=== PATIENT | female | born 1960 | race Caucasian/White ===

== ENCOUNTER 2018-04-22 11:25 | Emergency (ER) | payer OTHER, SELFPAY ==
[2018-04-22 11:30] VITALS: BP 122/78; PULSE 93; RESP 14; TEMP 37.2; O2SAT 96
--- NOTE | 2018-04-22 11:43 | ED.GENADUL_ITS ---
Disposition Clinical Impression: Osteoarthritis Disposition: HOME Condition: Stable Instructions: Osteoarthritis (ED) Medical Decision Making - Medical Decision Making Pt here with symptoms that seem typical of osteoarthritis given pain worse at the end of the day and worse with being on her feet all day or increased walking. Has no systemic symptoms or morning pain to suggest osteoarthritis or bone tumor, and no joint effusion on exam, no redness or warmth to suggest septic joint. I doubt fracture given lack of trauma, can bear weight and has full rom, I did offer an xray to eval for this but patient chose watchful waiting and will f/u with pcp, return precautions given - Differential Diagnosis osteoarthritis, overuse injury, sprain, strain History of Present Illness - General Chief complaint: Orthopedic Stated complaint: RT FOOT PAIN Time Seen by Provider: 04/22/18 11:32 Source: patient Mode of arrival: ambulatory Limitations: no limitations - History of Present Illness Initial comments: 58 yo female with hx of htn who comes in with cc of over a month of right foot pain. She states she is on her feet for work a lot and went on a cruise where she walked a lot. Denies any trauma, fevers, chills, redness, unexplained weight loss. She has pain that is worse at the end of the day and has swelling at the end of the day as well of the ankle. Her pain is localizes to the right medial malleolus. She has full rom with 2+ dp/pt pulses, no deformity or swelling and no calf pain and full rom of the ankle with 5/5 strength of dorsi and plantar flexion with intact sensation MD Complaint: right ankle pain Onset/Timin -: month(s) Improves with: none Worsens with: none - Related Data Amlodipine Besylate [Norvasc] 5 mg PO DAILY 11/19/12 Ranitidine [Zantac] 150 mg PO BID 11/19/12 Fluticasone Propionate [Flonase Allergy Relief] 9.9 ml NS 2 SPRAYS QD 02/04/15 Meclizine HCl 25 mg PO 1-2 TABS Q 6 HR tab-cap 02/04/15 Estradiol [Vagifem] 10 mcg VG 2x/wk #24 each 02/28/17 Sertraline HCl 25 mg PO DAILY tab-cap 02/28/17 Allergies Allergy/AdvReac Type Severity Reaction Status Date / Time clindamycin Allergy Intermediate Skin Rash Unverified 04/22/18 11:32 Estrogens Allergy Intermediate Skin Rash Unverified 04/22/18 11:32 Penicillins Allergy Intermediate Skin Rash Unverified 04/22/18 11:32 gabapentin Allergy Psychosis Unverified 04/22/18 11:32 acetaminophen [From Vicodin] AdvReac Intermediate Unverified 04/22/18 11:32 hydrocodone [From Vicodin] AdvReac Intermediate Unverified 04/22/18 11:32 Review of Systems Constitutional: denies: fever Respiratory: denies: shortness of breath Cardiovascular: denies: chest pain Musculoskeletal: denies: back pain Skin: denies: rash Neurological: denies: headache Comment: All other systems reviewed and negative Past Medical History - Past Medical History Medical history: asthma, GERD Chronic sinusitis, migraine headaches Surgical history: other (Sinus surgery, uterine ablation,) [employer] WORK[employer] history: other (Ovarian cyst) - Social History Alcohol use: none Drug use: none General Exam - General Limitations: no limitations General appearance: alert, in no apparent distress - Head Head exam: Present: atraumatic - Eye Eye exam: Present: normal apperance - ENT ENT exam: Present: mucous membranes moist - Neck Neck exam: Present: normal inspection - Respiratory Respiratory exam: Absent: respiratory distress - Cardiovascular Cardiovascular Exam: Present: regular rate - Extremities Exam Extremities exam: Present: normal inspection, full ROM, normal capillary refill - Back Exam Back exam: Present: normal inspection - Neurological Exam Neurological exam: Present: alert, oriented X3. Absent: motor sensory deficit - Psychiatric Psychiatric exam: Present: normal affect - Skin Skin exam: Present: warm Course Vital Signs - 24 hr 04/22/18 11:30 Temperature 99.0 F Pulse 93 H Respiratory 14 Rate Blood Pressure 122/78 Pulse Oximetry 96
== END 2018-04-22 11:53 | disposition home or self-care (01) ==
PROVIDERS: Emergency Provider Emergency Medicine; PCP Internal Medicine
DX: M19.071 Primary osteoarthritis, right ankle and foot (principal); I10 Essential (primary) hypertension
CPT/HCPCS: 99283; 99282

== ENCOUNTER 2018-06-08 00:27 | Outpatient (CLI) | payer OTHER, SELFPAY ==
--- NOTE | 2018-06-08 15:44 | DI.MAMMO_ITS ---
SYMPTOM/DIAGNOSIS: SCREENING, Z12.31 MAMMOGRAMS: Mammograms were interpreted according to the usual protocol including computer analysis with CAD system, tomosynthesis and C view imaging. Comparison with prior examinations. Breast density C. No masses or microcalcifications are seen. There is nothing to suggest malignancy. IMPRESSION: Negative mammogram. Routine screening is recommended. Category I. MQSA ASSESSMENT OF FINDINGS: Negative. Category 1. Patient will receive a letter notifying them of these results. Bi-RADS category C. The breasts are heterogeneously dense, which may obscure small masses.
== END 2018-06-08 00:47 ==
PROVIDERS: PCP Internal Medicine; Visit Provider Internal Medicine
DX: Z12.31 Encounter for screening mammogram for malignant neoplasm of breast (principal)
CPT/HCPCS: 77063; 77067

== ENCOUNTER 2018-06-14 08:02 | Emergency (ER) | payer OTHER, SELFPAY ==
[2018-06-14 08:12] VITALS: BP 142/86; PULSE 87; RESP 16; TEMP 36.7; O2SAT 93
--- NOTE | 2018-06-14 08:16 | ED.GENADUL_ITS ---
Discharge Plan Disposition Patient Disposition: HOME Condition: Stable Discharge Details Chief Complaint: RespSymp Clinical Impression: Upper respiratory infection, RAD (reactive airway disease) Primary Care Provider: Moustapha Givens ED Provider: Tamar Lucero Home Meds and New Rx's Prescriptions: Continue fluticasone [Flonase Allergy Relief] 9.9 ML spray,suspension 9.9 ml NS 2 SPRAYS QD RF: 0 meclizine 25 MG tablet,chewable 25 mg PO 1-2 TABS Q 6 HR RF: 0 amlodipine [Norvasc] 5 MG tablet 5 mg PO DAILY RF: 0 ranitidine HCl [Zantac] 150 MG tablet 150 mg PO BID RF: 0 Discharge Instructions Instructions: Upper Respiratory Infection (ED), Reactive Airways Disease (ED) Additional Instructions: Please return immediately to the emergency department if you develop any new or worsening symptoms or if you become otherwise concerned. It is extremely important that you make an appointment to be seen within the next 1-2 weeks by your primary care doctor. Referrals: Moustapha Givens MD [Primary Care Provider] - Discharge Data Discharge Date/Time-TO BE ENTERED AT DEPARTURE: 06/14/18 11:23 Medical Decision Making Estela Singh is a 58 y/o woman who presented to the emergency department with a few days of her typical recurrent sinusitis symptoms and cough, SOB today. On exam Pt is well and non-toxic appearing. Wheeze throughout b/l, mild. Concern for RAD component, possible PNA. Exam/hx not c/w bacterial sinusitis, meningitis , sepsis, PE, ACS. Plan for duoneb, CXR. Pt feels SOB completely improved after one duoneb. CXR okay. Normal pulmonary exam on ausculation upon reassessment. Plan for d/c to home with inhaler. No indications for steroids at this time. Lengthy discussion with Pt re: RTED precautions and importance of outpt f/u with ENT, PCP. She is amenable to the plan. Medical Records Medical records reviewed: Yes I reviewed the patient's medical records. Imaging Data Radiologic Study: Attestation: I personally reviewed and interpreted this imaging study as follows: Radiologist's impression: CHEST X-RAY, PA AND LATERAL: Comparison is 12/23/16. The heart size and pulmonary vasculature are within normal limits. The lungs appear clear and stable. No new infiltrates, effusions or pneumothoraces are identified. The bones appear intact. IMPRESSION: No acute change. No acute pulmonary process. HPI General Mode of arrival: ambulatory . Date/Time Provider Initiated Documentation: 06/14/18 08:15 . Limitations to Documentation: no limitations . Information obtained by: patient and family . HPI Narrative: Estela Singh is a 58-year-old woman with history of hypertension and chronic recurrent sinusitis presenting to the emergency department with cough and mild shortness of breath. Patient reports that over the past 4 days she has developed her typical recurrent sinusitis symptoms of pain in the frontal and maxillary sinuses worse on the right than the left and nasal congestion. Has also had cough since yesterday. Has been taking Afrin, Excedrin , and Flonase without change in her symptoms. She sees Dr. Matamoros for chronic recurrent sinusitis. Patient reports that this morning she woke up and had sensation of mild shortness of breath. Patient reports that she has had asthma in the past, but has not had any asthma symptoms for many years. Patient reports that this feels similar to asthma she has had in the past. She did not use an inhaler at home (is not prescribed on). She denies pain, fever, vomiting , diarrhea, rash and feels overall well. No recent travel. Eating and drinking as usual. Related Data Home Medications Medication Instructions Recorded Confirmed amlodipine [Norvasc] 5 mg PO DAILY 11/19/12 06/14/18 ranitidine HCl [Zantac] 150 mg PO BID 11/19/12 06/14/18 fluticasone [Flonase Allergy 9.9 ml NS 2 SPRAYS QD 02/04/15 06/14/18 Relief] meclizine 25 mg PO 1-2 TABS Q 6 HR tab-cap 02/04/15 06/14/18 Allergies Allergy/AdvReac Type Severity Reaction Status Date / Time clindamycin Allergy Intermediate Skin Rash Unverified 06/14/18 08:15 Estrogens Allergy Intermediate Skin Rash Unverified 06/14/18 08:15 Penicillins Allergy Intermediate Skin Rash Unverified 06/14/18 08:15 gabapentin Allergy Psychosis Unverified 06/14/18 08:15 acetaminophen [From Vicodin] AdvReac Intermediate Unverified 06/14/18 08:15 hydrocodone [From Vicodin] AdvReac Intermediate Unverified 06/14/18 08:15 General Stated Complaint: RespSymp DREW: 4 Review of Systems Review of Systems Constitutional: denies fevers Eyes: denies eye pain ENT: denies dental pain, sore throat, reports b/l sinus pain, nasal congestion Cardiovascular: denies chest pain, edema Respiratory: reports SOB, cough GI: denies abdominal pain, vomiting, diarrhea : denies flank pain MSK: denies back pain, neck pain, arthralgias, myalgias Skin: denies rash Neuro: denies headaches, lightheadedness, weakness PFSH Family History Other Heart disease Hyperlipidemia Personal history of malignant neoplasm Medical History Anxiety Depression GERD Migraine Seasonal allergic rhinitis Vitiligo Social History Smoking/Tobacco Use Status: Never Surgical History Colon/endoscopy Endometrial Ablation Ligation of fallopian tube R trochanteric bursectomy Sinus cyst removed Exam Narrative Exam Narrative: Constitutional: well and [id number], pleasant, conversing normally HENT: head atraumatic, normocephalic normal inspection, mucous membranes moist, normal oropharynx. TTP of b/l frontal sinuses Eyes: conjunctiva normal, sclera normal, pupils 3mm b/l Neck: no stridor, normal ROM, trachea midline Chest: normal inspection Resp: normal work of breathing, mild wheeze throughout b/l lung cope. O2 sat 98% on RA on monitor. Cardio: normal rate, normal rhythm, no murmur appreciated GI: abdomen soft, non-tender, non-distended Back: normal inspection, no rash Skin: warm, dry, normal color, no rash Neuro: alert, not altered, grossly non-focal, normal tone Ext: no LE edema, no posterior calf TTP. Psych: normal mood, normal affect, normal behavior Course Vital Signs Temperature 36.7 C 06/14/18 08:12 Pulse 87 06/14/18 08:12 Respiratory Rate 16 06/14/18 08:12 Blood Pressure 142/86 H 06/14/18 08:12 Pulse Oximetry 93 L 06/14/18 08:12 Temperature 36.7 C 06/14/18 08:12 Temperature Source Skin 06/14/18 08:12 Pulse 87 06/14/18 08:12 Respiratory Rate 16 06/14/18 08:12 Respiratory Effort Non-Labored 06/14/18 08:12 Blood Pressure 142/86 H 06/14/18 08:12 Pulse Oximetry 93 L 06/14/18 08:12 Oxygen Delivery Method Room Air 06/14/18 08:12 Oxygen Flow Rate 0 06/14/18 08:12 Pain Level 0 06/14/18 08:12
--- NOTE | 2018-06-14 09:23 | DI.RAD_ITS ---
SYMPTOMS/DIAGNOSIS: COUGH CHEST X-RAY, PA AND LATERAL: Comparison is 12/23/16. The heart size and pulmonary vasculature are within normal limits. The lungs appear clear and stable. No new infiltrates, effusions or pneumothoraces are identified. The bones appear intact. IMPRESSION: No acute change. No acute pulmonary process.
[2018-06-14 09:25] VITALS: RESP 1
[2018-06-14] MEDS: Albuterol/Ipratropium 3 ML UPD VIAL UPD (09:25)
[2018-06-14] MEDS: Albuterol HFA 8 GM 60 PUFF INH IH (11:24)
== END 2018-06-14 11:23 | disposition home or self-care (01) ==
PROVIDERS: Emergency Provider Student in an Organized Health Care Education/Training Program; PCP Internal Medicine
DX: J06.9 Acute upper respiratory infection, unspecified (principal); J45.909 Unspecified asthma, uncomplicated
CPT/HCPCS: 94640; 99283; 71046; J7620

== ENCOUNTER 2018-07-05 09:47 | Outpatient (REF) | payer OTHER, SELFPAY ==
[2018-07-07 11:07] LABS: Campylobacter PCR SEE COMMENTS; Salmonella PCR SEE COMMENTS; Shiga Toxin PCR SEE COMMENTS; Shigella/Enteroinvasive Ecoli SEE COMMENTS
== END 2018-07-05 10:07 ==
LOC: NCHCN 09:47
PROVIDERS: PCP Nurse Practitioner; Visit Provider Nurse Practitioner
DX: K92.1 Melena (principal); R19.7 Diarrhea, unspecified
CPT/HCPCS: 87505

== ENCOUNTER 2018-07-05 15:14 | Outpatient (REF) | payer OTHER, SELFPAY ==
[2018-07-05 22:09] LABS: Absolute Basophil Count 0.03 k/cumm (0.0-0.2); Absolute Eosinophil Count 0.14 k/cumm (0.0-0.7); Absolute Lymphocyte Count 1.13 k/cumm (1.2-3.4); Absolute Monocyte Count 0.59 k/cumm (0.11-0.7); Absolute Neutrophil Count 3.72 k/cumm (1.2-6.7); Basophils % 0.5; Eosinophils % 2.5; HCT 38.5 % (36.0-46.0); HGB 12.5 g/dL (12.0-15.5); Lymphocytes % 20.1; Mean Corp. HGB Concentration 32.5 g/dL (32.0-36.0); Mean Corpuscular Hemoglobin 29.3 pg (27.0-33.0); Mean Corpuscular Volume 90.4 fL (80-95); Monocytes % 10.5; Neutrophils % 66.4; Platelet Count 308 x1000/uL (130-400); RBC 4.26 m/cumm (4.00-5.20); RBC Distribution Width 13.3 % (11.7-14.6); White Blood Cell Count 5.61 k/cumm (4.4-10.8)
[2018-07-05 22:12] LABS: ALT 28 U/L (12-78); AST 17 U/L (15-37); Alkaline Phosphatase 73 U/L (46-116); Anion Gap 7.3 mmol/L (3-11); BUN 18 mg/dL (7-18); Bilirubin, Total 0.4 mg/dL (0.2-1.0); CO2 29.7 mmol/L (21.0-32.0); CREATININE 0.71 mg/dL (0.55-1.02); Calcium 9.7 mg/dL (8.5-10.1); Chloride 103 mmol/L (98-107); Glucose 84 mg/dL (70-100); Potassium 3.9 mmol/L (3.5-5.1); Sodium 140 mmol/L (136-145); Total Protein 7.3 g/dL (6.4-8.2)
== END 2018-07-05 15:34 ==
LOC: NCHCN 15:14
PROVIDERS: PCP Nurse Practitioner; Visit Provider Nurse Practitioner
DX: R19.7 Diarrhea, unspecified (principal)
CPT/HCPCS: 80053; 85025

== ENCOUNTER 2018-07-06 09:53 | Outpatient (REF) | payer OTHER, SELFPAY | END 2018-07-06 10:13 | LOC: NCHCN 09:53 | PROVIDERS: PCP Nurse Practitioner; Visit Provider Nurse Practitioner | DX: R19.7 Diarrhea, unspecified (principal) | CPT/HCPCS: 87329; 87177; 87324 ==

== ENCOUNTER 2018-07-11 01:01 | Outpatient (CLI) | payer OTHER, SELFPAY ==
[2018-07-11] MEDS: Omnipaque 350 MG/ML 100 ML BTL IJ (08:41)
--- NOTE | 2018-07-11 08:47 | DI.CT_ITS ---
SYMPTOM/DIAGNOSIS: DIARRHEA, R19.7, ABD PAIN, BLOOD IN STOOL, H/O DIVERTICULOSIS ABDOMEN AND PELVIC CT: CT scan of the abdomen and pelvis was performed following the uneventful administration of intravenous contrast material. The visualized lung bases are clear. The liver is normal in size. No suspicious hepatic masses are seen. The portal and superior mesenteric veins are patent. The gallbladder is negative. No biliary ductal dilatation is seen. The pancreas and peripancreatic soft tissues are unremarkable as are the spleen and adrenal glands. The kidneys show normal and symmetric enhancement. No evidence of a solid renal mass or obstruction is present. There is a 6 mm. fat density, well circumscribed lesion in the superior pole of the right kidney, most consistent with an angiomyolipoma. The urinary bladder is intact. The reproductive organs are grossly unremarkable. The abdominal aorta is of normal caliber. No aneurysmal dilatation is seen. No significant abdominal or pelvic adenopathy, ascites or pneumoperitoneum is present. There is diverticulosis of the colon but no evidence of acute diverticulitis. No evidence of bowel obstruction or inflammation is seen. No findings to suggest an acute appendicitis are present. A normal appendix is seen in the right lower quadrant. The colon does appear to be fluid filled which can be seen with diarrheal illness. Age appropriate degenerative changes are seen in the spine. IMPRESSION: Fluid filled colon which can be seen with diarrheal illness. No evidence of bowel obstruction or inflammation.
== END 2018-07-11 01:21 ==
PROVIDERS: PCP Nurse Practitioner; Visit Provider Nurse Practitioner
DX: R19.7 Diarrhea, unspecified (principal); R10.9 Unspecified abdominal pain; K92.1 Melena; K57.30 Diverticulosis of large intestine without perforation or abscess without bleeding
CPT/HCPCS: 74177; J3490

== ENCOUNTER 2019-02-15 10:21 | Outpatient (REF) | payer OTHER, SELFPAY ==
[2019-02-15 13:05] LABS: HCT 37.3 % (36.0-46.0); HGB 12.1 g/dL (12.0-15.5); Mean Corp. HGB Concentration 32.4 g/dL (32.0-36.0); Mean Corpuscular Hemoglobin 29.4 pg (27.0-33.0); Mean Corpuscular Volume 90.8 fL (80-95); Mean Platelet Volume 11.1 fL (8.0-11.0); Platelet Count 284 x1000/uL (130-400); RBC 4.11 m/cumm (4.00-5.20); RBC Distribution Width 13.8 % (11.7-14.6); White Blood Cell Count 4.74 k/cumm (4.4-10.8)
== END 2019-02-15 10:41 ==
LOC: NCHCN 10:21
PROVIDERS: PCP Nurse Practitioner; Visit Provider Internal Medicine
DX: K92.2 Gastrointestinal hemorrhage, unspecified (principal)
CPT/HCPCS: 85027

== ENCOUNTER 2019-05-03 17:46 | Outpatient (REF) | payer OTHER, SELFPAY ==
[2019-05-03 21:34] LABS: Calculated LDL 150 mg/dL; Cholesterol 229 mg/dL (50-200); HDL Cholesterol 60 mg/dL (40-60); Triglyceride 95 mg/dL (30-150)
== END 2019-05-03 18:06 ==
LOC: NCHCN 17:46
PROVIDERS: PCP Nurse Practitioner; Visit Provider Internal Medicine
DX: Z00.00 Encounter for general adult medical examination without abnormal findings (principal); Z13.220 Encounter for screening for lipoid disorders
CPT/HCPCS: 80061

== ENCOUNTER 2019-07-28 09:16 | Emergency (ER) | payer OTHER, SELFPAY ==
[2019-07-28 09:24] VITALS: BP 135/75; PULSE 99; RESP 18; TEMP 36.6; O2SAT 100
--- NOTE | 2019-07-28 09:54 | W.ED.GENAD ---
Discharge Plan Disposition Patient Disposition: HOME Condition: Stable Discharge Details Chief Complaint: Epistaxis Clinical Impression: Epistaxis Primary Care Provider: Moustapha Givens ED Provider: Shanae Austin Home Meds and New Rx's Prescriptions: Continued fluticasone propionate [Flonase Allergy Relief] 9.9 ML spray,suspension 9.9 ml NS 2 SPRAYS QD RF: 0 amlodipine [Norvasc] 5 MG tablet 5 mg PO DAILY RF: 0 Discharge Instructions Instructions: Nosebleed (ED) Additional Instructions: If bleeding returns, be sure to clamp in place for 20 to 30 minutes. If bleeding persists, you can use 2 sprays of Afrin in the nostril that is bleeding. If you continue to have bleeding that does not resolve with pressure or Afrin or ice, return to the emergency department or follow-up with your primary care doctor or Dr. Matamoros. Do not use the Afrin more than 3 days. Also apply Vaseline inside the nares to help with dry heat and your CPAP at night which can likely be the cause of your nosebleeds. If you have persistent bleeding, for lubrication you can also apply Neosporin. Return to the emergency department anytime if you have any significant worsening or new concerning symptoms. Discharge Data Discharge Date/Time-TO BE ENTERED AT DEPARTURE: 07/28/19 10:03 Discharge Physician: Shanae Austin Medical Decision Making 59-year-old female with a history of recently started nasal cannula CPAP 1 month ago presents with 2 nosebleeds from left nares since last night. Vitals within normal limits. Patient appears nontoxic and comfortable. Bleeding controlled prior to arrival. No bleeding noted on exam. There is a 1 x 2 mm crust within left nares on septum likely consistent with recently ceased bleeding vessel. No active bleeding noted within bilateral nares. No blood noted within oropharynx. Discussed with patient that as she recently started nasal cannula CPAP, her nosebleeds are likely due to dry air even with water canister. She is advised to apply Vaseline inside to help with moisture, irrigate with nasal saline spray, and to apply topical Neosporin if needed. She was given a nasal clamp. She is advised that if bleeding returns to apply clamp and to use Afrin as needed. She is advised if bleeding is not controlled at home or she has any other worsening or new concerning symptoms, to return to emergency department. She is advised to follow-up with Dr. Matamoros for reevaluation as needed. HPI General Mode of arrival: ambulatory. Date/Time Provider Initiated Documentation: 07/28/19 09:26. Limitations to Documentation: no limitations. Information obtained by: patient. HPI Narrative: Patient is a 59-year-old female who presents the ED with a complaint of nosebleed from left nares that lasted 20 minutes today. Patient states that last night she had a nosebleed from the same side which lasted approximate 25 minutes. She was able to stop both nosebleeds with pressure. She denies headaches, blurry vision, fever, chest pain, shortness of breath. She states she started nasal cannula CPAP 1 month ago but she states she uses this with the water canister. She also states she has history of chronic rhinitis for which she uses Flonase. Related Data Home Medications Medication Instructions Recorded Confirmed amlodipine [Norvasc] 5 mg PO DAILY 11/19/12 07/28/19 fluticasone propionate [Flonase 9.9 ml NS 2 SPRAYS QD 02/04/15 07/28/19 Allergy Relief] Allergies Allergy/AdvReac Type Severity Reaction Status Date / Time clindamycin Allergy Intermediate Skin Rash Unverified 07/28/19 09:30 Estrogens Allergy Intermediate Skin Rash Unverified 07/28/19 09:30 Penicillins Allergy Intermediate Skin Rash Unverified 07/28/19 09:30 gabapentin Allergy Psychosis Unverified 07/28/19 09:30 acetaminophen [From Vicodin] AdvReac Intermediate Unverified 07/28/19 09:30 hydrocodone [From Vicodin] AdvReac Intermediate Unverified 07/28/19 09:30 General Stated Complaint: Epistaxis DREW: 3 Review of Systems All systems reviewed & are unremarkable except as noted in HPI and below Constitutional Constitutional: Reports as per HPI, Denies chills and Denies fever(s) Eyes Eyes: Denies blurry vision ENT Ears, Nose, Mouth, and Throat: Denies dizziness, Reports epistaxis, Denies sore throat and Denies throat swelling Cardiovascular Cardiovascular: Denies chest pain and Denies dyspnea Respiratory Respiratory: Denies cough and Denies dyspnea Gastrointestinal Gastrointestinal: Denies abdominal pain, Denies diarrhea and Denies vomiting Genitourinary Genitourinary: Denies hematuria and Denies dysuria Musculoskeletal Musculoskeletal: Denies back pain and Denies numbness Integumentary/Breasts Skin/Breast: Denies lesions and Denies rash Neurologic Neurologic: Denies dizziness, Denies focal weakness and Denies numbness Allergic/Immunologic Allergic/Immunologic: Denies throat swelling [facility] Medical History Anxiety Depression GERD History of excessive cerumen (Acute) Migraine Seasonal allergic rhinitis Vitiligo Surgical History Colon/endoscopy 07/2013 repeated negative endoscopy Diverticulosis colon done at [facility] Endometrial Ablation 2009 Ligation of fallopian tube 1984 R trochanteric bursectomy with IT band tenotomy 07/2012 Sinus cyst removed 2006 Family History Other Heart disease Hyperlipidemia Personal history of malignant neoplasm Social History Smoking/Tobacco Use Status: Never Alcohol Intake: current Alcohol Intake frequency: holidays/special occasions only Drug use: Never Do you feel safe at home: Yes Do you feel safe in your relationship?: Yes Exam Const General: cooperative, healthy appearing and no acute distress HENMT Head: normal to inspection Ears: hearing grossly normal bilaterally, external ears normal and TM's normal bilaterally General nose exam: external nose normal, no nasal polyps and no nasal discharge Face and sinus: normal facial exam Mouth: oral mucosae normal Throat: posterior oropharynx normal Other: 1 x 2 mm pinpoint crust noted anteriorly within left nares overlying septum. Bleeding controlled. No other evidence of active bleeding or oozing. Eyes General: appearance normal, both eyes and all related structures EOM: EOM intact bilaterally Neck Neck: normal visual inspection and No submandibular swelling Lymphatic: no lymphadenopathy noted Chest Chest: normal inspection of the chest and no tenderness Resp Effort & Inspection: normal respiratory effort and able to speak in complete sentences Auscultation: clear to auscultation bilaterally Cardio Rate: regular rate Rhythm: regular rhythm GI Inspection: normal to inspection Skin General skin exam: no rashes or lesions noted Neuro General: alert, awake and oriented x3 Cognition: normal cognition Speech: speech normal Motor: muscle tone normal throughout Sensory Exam: no sensory deficits noted Extrem General: full ROM Psych Appearance: grossly normal Mental Status: mental status grossly normal Speech and Movement: speech and movement normal Affect: normal affect Course Vital Signs Vital signs: Vital Signs Temperature 97.9 F 07/28/19 09:24 Pulse 99 H 07/28/19 09:24 Respiratory Rate 18 07/28/19 09:24 Blood Pressure 135/75 07/28/19 09:24 Pulse Oximetry 100 07/28/19 09:24 Temperature 97.9 F 07/28/19 09:24 Temperature Source Skin 07/28/19 09:24 Pulse 99 H 07/28/19 09:24 Respiratory Rate 18 07/28/19 09:24 Respiratory Effort Non-Labored 07/28/19 09:29 Blood Pressure 135/75 07/28/19 09:24 Blood Pressure Position Sitting 07/28/19 09:24 Pulse Oximetry 100 07/28/19 09:24 Oxygen Delivery Method Room Air 07/28/19 09:24 Oxygen Flow Rate 0 07/28/19 09:24 Pain Level 3 07/28/19 09:24
== END 2019-07-28 10:03 | disposition home or self-care (01) ==
PROVIDERS: Emergency Provider Physician Assistant; PCP Internal Medicine
DX: R04.0 Epistaxis (principal)
CPT/HCPCS: 99282

== ENCOUNTER 2019-10-02 11:29 | Outpatient (CLI) | payer OTHER, SELFPAY ==
--- NOTE | 2019-10-02 10:48 | DI.RAD_ITS ---
EXAM: XR SHOULDER LT COMPLETE 2+V INDICATION: L shoulder pain. COMPARISON: XR CHEST 2V PA LATERAL from 06/14/2018 TECHNIQUE: 2D digital imaging was performed. FINDINGS: There is minimal spurring at the AC joint and glenoid. The humeral head appears normally positioned. No tendon or joint space calcifications are seen. IMPRESSION: Mild degenerative changes.
== END 2019-10-02 11:49 ==
PROVIDERS: PCP Internal Medicine; Visit Provider Physician Assistant
DX: M25.512 Pain in left shoulder (principal); M19.012 Primary osteoarthritis, left shoulder
CPT/HCPCS: 73030

== ENCOUNTER 2019-10-08 01:36 | Outpatient (CLI) | payer OTHER, SELFPAY ==
--- NOTE | 2019-10-08 14:20 | DI.MRI_ITS ---
EXAM: MR UPPER JOINT LT WO CLINICAL HISTORY: L shoulder pain, teninditis long head of biceps brachii, SLAP tear, M75.22. TECHNIQUE: Multiplanar multisequence MRI was performed. COMPARISON: XR SHOULDER LT COMPLETE 2+V from 10/02/2019 FINDINGS: Rotator cuff: Tendinosis of the supraspinatus and subscapularis tendons. The infraspinatus and teres minor tendons are unremarkable. Biceps tendon: Intact and unremarkable. Labrum: Intermediate signal and decreased size of the superior labrum suspicious for degeneration. Bones: No evidence of fracture or avascular necrosis. Glenohumeral joint: Unremarkable. Bursa: Fluid in the subacromial subdeltoid bursa consistent with bursitis. Muscles: No significant muscular fatty atrophy. Soft tissues: No evidence of a soft tissue mass. IMPRESSION: 1. Tendinosis of the supraspinatus and subscapularis tendons. No evidence of a rotator cuff tear. 2. Degeneration of the superior labrum. 3. Subacromial subdeltoid bursitis.
== END 2019-10-08 01:56 ==
PROVIDERS: PCP Internal Medicine; Visit Provider Student in an Organized Health Care Education/Training Program
DX: M25.512 Pain in left shoulder (principal); M75.22 Bicipital tendinitis, left shoulder; M19.012 Primary osteoarthritis, left shoulder
CPT/HCPCS: 73221

== ENCOUNTER 2019-10-16 14:26 | Outpatient (CLI) | payer OTHER, SELFPAY ==
--- NOTE | 2019-10-16 14:21 | DI.RAD_ITS ---
EXAM: XR FOOT LT COMPLETE INDICATION: TRAUMA LEFT FOOT. COMPARISON: No exams were available for comparison TECHNIQUE: 2D digital imaging was performed. FINDINGS: No fracture or dislocation is seen. There is a plantar calcaneal spur. There are mild degenerative changes. IMPRESSION: Small heel spur and mild degenerative changes. No acute abnormality.
== END 2019-10-16 14:46 ==
PROVIDERS: PCP Internal Medicine; Visit Provider Student in an Organized Health Care Education/Training Program
DX: M79.672 Pain in left foot (principal); M77.32 Calcaneal spur, left foot; M19.072 Primary osteoarthritis, left ankle and foot
CPT/HCPCS: 73630

== ENCOUNTER 2019-10-26 05:58 | Day surgery (SDC) | payer OTHER, SELFPAY ==
[2019-10-26] VITALS (7 sets, daily range): BP systolic 102–120; BP diastolic 52–75; PULSE 86–103; RESP 15–18; TEMP 36.3–36.7; O2SAT 96–100
[2019-10-26] MEDS: Lactated Ringers 1,000 ML 100 ML IV ×2 (06:43→11:01)
[2019-10-26] MEDS: ceFAZolin 2 GM/50 ML BAG IVPB (08:00)
--- NOTE | 2019-10-26 10:33 | W.PM.DSUDISC ---
Discharge Plan Disposition Patient Disposition: HOME Condition: Stable Discharge Details Reason For Visit: Left shoulder surgery Attending Provider: Trey Ricci Primary Care Provider: Moustapha Givens Home Meds and New Rx's Prescriptions: New aspirin 81 mg tablet,delayed release (DR/EC) 81 mg PO DAILY 14 Days Qty: 14 RF: 0 naproxen 250 mg tablet 250 - 500 mg PO BID PRN (Reason: Moderate pain or swelling) Qty: 60 RF: 0 ondansetron 4 mg tablet,disintegrating 4 mg PO Q6H PRN (Reason: nausea or vomiting) Qty: 5 RF: 0 oxycodone 5 mg tablet 5 - 10 mg PO Q4H PRN (Reason: moderate to severe pain) Qty: 22 RF: 0 Continued Adult Probiotic 3 billion cell capsule 3,000 mmu cells PO DAILY RF: 0 famotidine 20 mg tablet 20 mg PO HS RF: 0 amitriptyline 10 mg tablet 10 mg PO HS RF: 0 fluticasone propionate [Flonase Allergy Relief] 9.9 ML spray,suspension 9.9 ml NS 2 SPRAYS QD RF: 0 amlodipine [Norvasc] 5 MG tablet 5 mg PO HS RF: 0 Discharge Instructions Additional Instructions: Surgery: Shoulder arthroscopy with debridement, decompression, distal clavicle excision, and open biceps tenodesis. Activity: You may start using your arm for regular activities right away. You have no restrictions on range of motion. Avoid heavy lifting away from body or overhead approximately 6 to 8 weeks. You may stop using the sling as soon comfortable, ideally within 1 to 2 weeks. A physical therapy prescription will be provided separately today. Prescriptions: Aspirin 81 mg take 1 daily to prevent a blood clot for 2 weeks Naproxen 250 mg take 1-2 every 12 hours with a meal as needed for moderate pain Oxycodone 5 mg take 1-2 every 4-6 hours as needed for severe pain Zofran (ondansetron) 4 mg take 1 orally dissolving tablet every 6 hours as needed for nausea or vomiting You may use pgwh-[id number] Tylenol (acetaminophen) as needed for mild pain. These pain medications may be taken all at once or in different combinations as needed. Also, recommend Colace (docusate) as a stool softener as surgery and pain medicine cause constipation. Dressings: Leave dressing in place for 2-3 days. May then remove and leave open to air or cover incisions with Band-Aids. May shower after 5 days. Follow-up: 10-[address] Ricci Please call the office during business hours with any questions or concerns. Let us know right away if you develop any redness, drainage, fevers, chest pain, or trouble breathing. Do not drink alcohol or drive for at least 24 hours after anesthesia. Referrals: Trey Ricci MD [ [facility] STAFF PHYSICIAN] - Discharge Orders Discharge Orders: Discharge Order (Routine); Ordered 10/26/19 Ordered By: Trey Ricci DS: Diagnosis Discharge Diagnosis (1) Impingement syndrome of left shoulder: Status: Acute (2) Arthritis of left acromioclavicular joint: Status: Acute (3) Superior labrum [id number]-tc-uxxsyifcw (SLAP) tear of left shoulder: Status: Acute (4) Tendinitis of long head of biceps brachii of left shoulder: Status: Acute
--- NOTE | 2019-10-26 10:41 | W.PM.OP ---
Date of service: 10/26/19 Time of Service: 10:33 Operative Note Operative Note DATE OF PROCEDURE: 10/26/19 PRE-OP DIAGNOSIS: Left: 1. SLAP tear 2. LHB tendinopathy 3. AC Joint arthritis 4. Impingement POST-OP DIAGNOSIS: same PROCEDURE: Left: 1. Extensive debridement, CPT# 19168. This involved using arthroscopic hand instruments, power instruments, and radiofrequency instruments to debride areas of labral tearing and degeneration anteriorly superiorly and posteriorly, synovitis anteriorly and posteriorly, and chondromalacia within the glenohumeral joint adjacent to an inflamed long head of the biceps tendon as well as releasing the biceps from the superior labral anchor and releasing an inflamed and enlarged MGHL arthroscopically with scissors. 2. Open biceps tenodesis, CPT# 03276. This involved reattaching the long head of the biceps tendon to the proximal humerus in the sub-pectoral area of the bicipital groove at the correct tension. 3. Subacromial decompression with partial acromioplasty, CPT# 15398. This involved using arthroscopic power instruments and a radiofrequency wand to complete a bursectomy and remove bone spurs on the undersurface of the acromion. 4. Arthroscopic distal clavicle excision, CPT# 24502. This involved arthroscopically exposing the underside of the acromioclavicular joint, smoothing out bone spurs, and using a boo to remove approximately 5 mm of the distal clavicle so there was no bone left engaging the acromion. The mental health assistant was medically required in order to help assist in techniques above, which require positioning the arm, holding the arthroscope, and manipulating 2 to 4 instruments and sutures at the same time. This cannot be done without the help of an experienced mental health assistant. SURGEON: Trey Ricci STRADDLE TRUCK OPERATOR: Trish Simms ANESTHESIA: GETA, regional and local PATHOLOGY: none sent COMPLICATIONS: None Patient was transported to: PACU Patient's condition: stable Implants: Arthrex: Unicortical Proximal Biceps Tenodesis Button Indications: The patient was diagnosed with the above conditions and appropriately indicated for surgical intervention. Please see complete medical record for details. Findings: Exam under anesthesia: Full symmetrical range of motion, shoulder stable Glenohumeral joint: Extensive labral fraying and detached anterior and superior labrum with injected inflamed long head of the biceps tendon and synovitis about the biceps sling. Enlarged thickened inflamed MGHL. Intact subscapularis. PASTA lesion fraying approximately 10% and smaller amount of fraying posteriorly under the infraspinatus. Both with otherwise intact strong attachments. Diminutive, degenerative posterior labral tissue fraying and synovitis. Inflamed axillary recess with chondromalacia on the inferior humeral head neck margin. Subacromial space: Moderate bursitis. Significant subacromial bone spur. Significant impinging bone spurring distal clavicle acromion. Intact bursal sided rotator cuff. Procedure Description: The patient was taken to the operating room and transferred to the operating room table. General anesthesia was induced. While under anesthesia, bilateral shoulders were examined. The patient was positioned in the beachchair position. All bony prominences were well-padded. Preoperative antibiotics were administered. The shoulder was prepped and draped in the usual sterile fashion. The correct patient, procedure, and side of the procedure were all verified prior to incision. Starting through the posterior portal a standard complete diagnostic arthroscopy was performed of the glenohumeral joint including inspection of the long head of the biceps, anterior and superior labrum, subscapularis tendon, supraspinatus and infraspinatus tendons, and axillary recess. The glenoid and humeral head cartilage as well as the posterior labrum were inspected from an anterior viewing portal. Significant findings noted above. The biceps tendon was tenotomized from the labrum using arthroscopic scissors. The articular sided supraspinatus infraspinatus fraying small partial tears were debrided with a shaver. The MGHL was thickened and abnormal and partially released using arthroscopic scissors to expose a normal subscap tendon. The degenerated and partially detached anterior and superior labrum was debrided. Chondromalacia anteriorly inferiorly and posteriorly on the humeral head was lightly debrided as well synovitis removed. 10 cc of 0.5% bupivacaine with epinephrine was infiltrated about a 2 to 3 cm longitudinal incision at the inferior margin of the pectoralis major localized over the long head of the biceps tendon. Blunt and sharp dissection were used to expose the tendon in the bicipital groove. The tendon was brought out of the wound and kept off the skin on top of a blue towel. The correct location for sub-pectoral fixation was localized, prepped with a rasp, and then drilled with a 3.2 mm drill pin in a unicortical fashion. Using a fiber loop suture the tendon was prepped from the musculotendinous junction a few centimeters proximal. The excess tendon was amputated. The free suture ends were then passed through the unicortical button implant. The drill pin was removed and the implant was placed into the humeral intramedullary canal. The button was flipped and the sutures were tensioned bringing the tendon down to bone. Tension and fixation were then tested and found to be appropriate. The free ends of the suture were were tied. A free needle was used to pass suture through the tendon and tied again. The wound was copiously irrigated with normal saline. Subcutaneous tissue was closed using 3-0 Monocryl in a buried interrupted fashion. Skin was closed using 3-0 Monocryl in a buried subcuticular running fashion. Skin glue was applied over the incision. Mastisol was applied about the incision. The incision was covered with Telfa, gauze, and covered with a Tegaderm dressing. Starting through the posterior portal, the arthroscope was directed into the subacromial space. A lateral 50 yard line lateral portal was created. A combination of power instruments and a radiofrequency ablator were used to debride bursitis anteriorly, posteriorly, and laterally as well as expose and smooth bone spurring on the undersurface of the acromion. The coracoacromial ligament was only partially released. The bursectomy was completed viewing laterally and working from posteriorly and the rotator cuff was thoroughly inspected with findings noted above. The anterior portal was redirected towards the undersurface of the AC joint. Viewing from the lateral 50 yard line portal a shaver and electrocautery device were used to clear soft tissue from the undersurface of the AC joint. A boo was then inserted and used to remove the distalmost 5 mm of the distal clavicle. Care was taken to alternate between working through the anterior portal and viewing through the anterior portal to ensure that proper amount of bone was removed and there was no engaging bone left behind especially superiorly. The shoulder was drained of arthroscopic fluid. All portal sites were copiously irrigated. These incisions were closed using 3-0 Monocryl in a buried fashion, covered with Mastisol, Steri-Strips, Xeroform, dry gauze, and ABDs. The dressings were covered and secured with Medipore tape. The operative extremity was placed into a sling for immobilization. The patient awoke from anesthesia without complication and was transferred to the recovery room in a stable condition.
[2019-10-26] MEDS: EPINEPHrine 30 MG/30 ML VIAL (11:14)
== END 2019-10-26 12:45 | disposition home or self-care (01) ==
PROVIDERS: PCP Internal Medicine; Visit Provider Student in an Organized Health Care Education/Training Program
PROC: (CPT 29827; principal; 2019-10-26 07:30)
PROC: (CPT 23430; 2019-10-26 07:30)
PROC: (CPT 23120; 2019-10-26 07:30)
DX: S43.432A Superior glenoid labrum lesion of left shoulder, initial encounter (principal); M65.812 Other synovitis and tenosynovitis, left shoulder; M75.22 Bicipital tendinitis, left shoulder; M19.012 Primary osteoarthritis, left shoulder; M75.42 Impingement syndrome of left shoulder; G89.18 Other acute postprocedural pain
CPT/HCPCS: 23430; 29823; 29824; 76942; L3670; J0131; J0690; J1100; J1885; J2001; J2250; J2370; J2405; J2704; L3650

== ENCOUNTER 2020-01-21 12:51 | Outpatient (REF) | payer OTHER, SELFPAY ==
[2020-01-21 21:38] LABS: HCT 38.7 % (36.0-46.0); HGB 12.7 g/dL (12.0-15.5); Mean Corp. HGB Concentration 32.8 g/dL (32.0-36.0); Mean Corpuscular Hemoglobin 28.9 pg (27.0-33.0); Mean Corpuscular Volume 88.2 fL (80-95); Platelet Count 375 x1000/uL (130-400); RBC 4.39 m/cumm (4.00-5.20); RBC Distribution Width 13.5 % (11.7-14.6); White Blood Cell Count 6.77 k/cumm (4.4-10.8)
[2020-01-21 21:56] LABS: Lipase 63 U/L (73-393)
[2020-01-22 08:22] LABS: ALT 32 U/L (14-59); AST 20 U/L (15-37); Albumin 4.4 g/dL (3.4-5.0); Alkaline Phosphatase 91 U/L (46-116); Anion Gap 10.3 mmol/L (3-11); BUN 17 mg/dL (7-18); Bilirubin, Total 0.5 mg/dL (0.2-1.0); CO2 28.7 mmol/L (21.0-32.0); CREATININE 0.96 mg/dL (0.55-1.02); Calcium 10.4 mg/dL (8.5-10.1); Chloride 101 mmol/L (98-107); Estimated GFR 59.09 (mL/min/1.73m2); Glucose 105 mg/dL (74-106); Potassium 3.8 mmol/L (3.5-5.1); Sodium 140 mmol/L (136-145)
[2020-01-23 10:51] LABS: Hepatitis C Ab w Rflx HCV PCR Negative (Negative)
== END 2020-01-21 13:11 ==
LOC: NCHCN 12:51
PROVIDERS: PCP Internal Medicine; Visit Provider Internal Medicine
DX: R10.84 Generalized abdominal pain (principal); K58.9 Irritable bowel syndrome, unspecified; Z11.59 Encounter for screening for other viral diseases
CPT/HCPCS: 80053; 83690; 85027; 86803

== ENCOUNTER 2020-05-05 09:22 | Outpatient (REF) | payer OTHER, SELFPAY ==
[2020-05-05 21:08] LABS: Calcium 9.8 mg/dL (8.5-10.1)
== END 2020-05-05 09:42 ==
LOC: NCHCN 09:22
PROVIDERS: PCP Internal Medicine; Visit Provider Internal Medicine
DX: E83.52 Hypercalcemia (principal)
CPT/HCPCS: 82310

== ENCOUNTER 2020-05-08 01:20 | Outpatient (CLI) | payer OTHER, SELFPAY ==
--- NOTE | 2020-05-08 12:20 | DI.MAMMO_ITS ---
EXAM: MG MAMMO SCREENING CLINICAL HISTORY: SCREENING, Z12.31 TECHNIQUE: Bilateral full field digital CC and MLO mammographic images were obtained with 3D tomosyn thesis and utilizing computer aided detection (CAD). COMPARISON: Available for comparison. FINDINGS: Masses/Architectural Distortion: None seen. Microcalcifications: No suspicious pleomorphic-type are seen. Skin Thickening/Nipple Retraction: None. IMPRESSION: 1. No significant interval change with no specific features of malignancy noted. 2. Unless there is more urgent need, screening mammography is recommended, as per [employer] guidelines. BI-RADS Category 1 - Negative Breast Density - Category C - Heterogeneously dense The mammogram demonstrates the patient's breast tissue is dense. Dense breast tissue is very common a nd is not abnormal but dense breast tissue can make it harder to find cancer on a mammogram. Also, de nse breast tissue may increase their breast cancer risk. This information about the result of the [facility] mogram report was provided to the patient to raise their awareness. Use this report when you speak wi th the patient about their risks for breast cancer, which includes their family history. At that time , you may recommend for more screening tests (Ultrasound or MRI) as they might be useful based on the ir risk. A negative radiographic report should not delay biopsy if a dominant or clinically suspicious mass is present. Up to ten percent of cancers are not identified on mammography. A negative report may reinforce clinical impression. Adenosis and dense breasts may obscure an underlying neoplasm. False positive reports average 6 to 10%. Patient will receive a letter notifying them of these results.
== END 2020-05-08 01:40 ==
PROVIDERS: PCP Internal Medicine; Visit Provider Internal Medicine
DX: Z12.31 Encounter for screening mammogram for malignant neoplasm of breast (principal); R92.2 Inconclusive mammogram
CPT/HCPCS: 77063; 77067

== ENCOUNTER 2020-07-02 10:13 | Outpatient (CLI) | payer OTHER, SELFPAY ==
--- NOTE | 2020-07-02 08:15 | DI.RAD_ITS ---
EXAM: XR SHOULDER RT COMPLETE 2+V CLINICAL HISTORY: right shoulder pain TECHNIQUE: COMPARISON: CR XR SHOULDER LT COMPLETE 2+V from 10/02/2019 FINDINGS: Two views were obtained. Cartilaginous joint space of the glenohumeral joint appears fairly well kimberly ntained. Minimal hypertrophic spurring noted at the joint margins. No other significant bony or sof t tissue abnormality seen. IMPRESSION: Minimal degenerative changes as described RADIATION DOSE DELIVERED: Total DLP
== END 2020-07-02 10:33 ==
PROVIDERS: PCP Internal Medicine; Referring Provider Internal Medicine; Visit Provider Student in an Organized Health Care Education/Training Program
DX: M25.511 Pain in right shoulder (principal); M19.011 Primary osteoarthritis, right shoulder
CPT/HCPCS: 73030

== ENCOUNTER 2020-12-23 21:54 | Emergency (ER) | payer OTHER, SELFPAY ==
[2020-12-23 22:00] VITALS: BP 137/79; PULSE 102; RESP 16; TEMP 36.5; O2SAT 97
--- NOTE | 2020-12-23 22:10 | ED.GENADUL_ITS ---
Discharge Plan Disposition Patient Disposition: HOME Condition: Stable Discharge Details Clinical Impression: Blood-tinged sputum, Post-nasal drip Primary Care Provider: Moustapha Givens ED Provider: Jaime Chapman Home Meds and New Rx's Prescriptions: Continued acetaminophen 500 mg capsule 500 mg PO QID PRNRF: 0 celecoxib 200 mg capsule 200 mg PO DAILY PRN (Reason: pain, shoulder) Qty: 90 RF: 0 Adult Probiotic 3 billion cell capsule 3,000 mmu cells PO DAILY RF: 0 famotidine 20 mg tablet 20 mg PO HS RF: 0 fluticasone propionate [Flonase Allergy Relief] 9.9 ML spray,suspension 9.9 ml NS 2 SPRAYS QD RF: 0 amlodipine [Norvasc] 5 MG tablet 5 mg PO HS RF: 0 magnesium oxide 400 mg magnesium Tablet 400 mg PO DAILY RF: 0 Discharge Instructions Instructions: Rhinosinusitis (ED) Additional Instructions: At this time the radiologist have reviewed your images and there is no evidence of blood clots in the lungs, mass, or other significant abnormality. I suspect the blood that was noted in your sputum was secondary to the cough from the postnasal drip. Please take the antihistamines that you have at home to help with the sinus congestion. If you notice any worsening of your symptoms, or any new symptoms such as vomiting, diarrhea, fever, chills, shortness of breath, chest pain, numbness, weakness, or fainting , please return immediately to the emergency department for reevaluation. Please follow up with your primary care provider as soon as possible for reassessment and reevaluation. As always, it was a pleasure participating in your medical care today. Referrals: Moustapha Givens MD [Primary Care Provider] - Discharge Data Discharge Date/Time-TO BE ENTERED AT DEPARTURE: 12/24/20 01:00 Medical Decision Making <CHAPO Simon - Last Filed: 12/23/20 23:12> This is a 60-year-old female presenting with episodes of hemoptysis over the past 24 hours, presenting with tachycardia of 102. Clinically she appears well, nontoxic, blood pressure 137/79 patient respirations 16, afebrile, O2 sat 97% on room air. No chest pain or shortness of breath whatsoever. This very well may be postnasal drip, bloody sinus drainage; however, certainly cannot rule out PE, lung mass, etc. given the mild tachycardia and potential hemostasis. Given this, she is agreeable to initiating a cardiac work-up including a CTA of her chest. Medical Records Medical records reviewed: Yes I reviewed the patient's medical records. Lab Data Lab results reviewed: Yes I reviewed the patient's lab results. Labs: Laboratory Tests Range/Units 12/23/20 12/23/20 12/23/20 22:34 22:34 22:34 WBC (4.4-10.8) 10^3/uL 4.86 RBC (3.93-5.22) 10^6/uL 4.07 Hgb (11.2-15.7) g/dL 12.0 Hct (36.0-46.0) % 36.9 MCV (80-95) fL 90.7 MCH (27.0-33.0) pg 29.5 MCHC (32.0-36.0) % 32.5 RDW (11.7-14.6) % 12.7 Plt Count (130-400) 10^3/uL 261 MPV (8.0-11.0) fL 10.0 Immature Gran % 0.2 Neutrophils % 45.9 Lymphocytes % 34.0 Monocytes % 14.4 Eosinophils % 4.7 Basophils % 0.8 Nucleated RBC % % 0 Absolute Neutrophils (1.2-6.7) 10^3/uL 2.23 Absolute Lymphocytes (1.2-3.4) 10^3/uL 1.65 Absolute Monocytes (0.1-0.8) 10^3/uL 0.70 Absolute Eosinophils (0.0-0.7) 10^3/uL 0.23 Absolute Basophils (0.0-0.2) 10^3/uL 0.04 PT (9.3-11.0) sec 9.9 INR (0.9-1.1) 1.0 APTT (21.0-27.5) sec 22.9 Sodium (136-145) mmol/L 144 Potassium (3.5-5.1) mmol/L 3.6 Chloride (98-107) mmol/L 106 Carbon Dioxide (21.0-32.0) mmol/L 28.9 Anion Gap (3-11) mmol/L 9.1 BUN (7-18) mg/dL 20 H Creatinine (0.55-1.02) mg/dL 0.8 Estimated GFR/1.73 m2 (mL/min/1.73m2) >= 60.00 Glucose (74-106) mg/dL 119 H Calcium (8.5-10.1) mg/dL 8.9 Total Bilirubin (0.2-1.0) mg/dL 0.2 AST (15-37) U/L 14 L ALT (14-59) U/L 29 Alkaline Phosphatase (46-116) U/L 79 Troponin I (<0.06) ng/mL < 0.05 Total Protein (6.4-8.2) g/dL 7.6 Albumin (3.4-5.0) g/dL 3.8 ECG Data Attestation: I personally reviewed and interpreted this ECG (s) as follows: Interpretation: Please see official report by Dr. Lucero. Sinus rhythm, ventricular rate of 91. No STEMI <Jaime Chapman DO - Last Filed: 12/24/20 05:37> Case was signed out to me by my colleague Vineet Castellano. Please refer to his HPI, physical exam assessment and plan. At time of signout we are pending CTA. Laboratory work-up is returned unremarkable. Patient hemodynamically stable here in the ED. CTA per radiology shows no acute process, no PE. On reevaluation of the patient patient appears well, stable, in no acute distress. Discussion of the history the patient does confirm that there is only a very small amount of blood in her sputum, and not large amounts of blood at all. Suspect that the patient's chronic sinusitis is causing postnasal drip which is subsequently causing cough and may be small amount of blood associated with this. Otherwise symptoms are inconsistent with significant hemoptysis. No indication for admission or further work-up at this time. Patient feels that she has the tools needed to control her sinus congestion and postnasal drip, but was just worried about the blood. No other complaints at this time. Discussed red flags which to return. I have extensively reviewed the treatment plan and discharge instructions with the patient. I have addressed all patient concerns at this time. The patient was made aware of what symptoms to monitor for that would warrant a return to the emergency department. Discussed the plan with the patient, they demonstrate verbal understanding and agreement with our assessment and plan at this time. The documentation in this chart was dictated using [employer] dictation software. Please excuse any dictation errors. FINDINGS: Pulmonary arteries: No filling defect in the pulmonary arterial tree. Aorta: No aortic aneurysm. No aortic dissection. Respiratory motion in the region of the aortic root somewhat limits evaluation at that level. Other arteries: Incidental 1 cm distal splenic artery aneurysm. Lungs: There is minimal scarring at the left lung base. No consolidation or ground-glass disease. No suspicious parenchymal nodule. Central airways are patent. Pleural spaces: No pneumothorax. No pleural effusion. Heart: No pericardial effusion. Lymph nodes: No mediastinal, hilar or axillary adenopathy Bones/joints: No significant bony or joint space abnormality. Soft tissues: Extrathoracic soft tissues are unremarkable. IMPRESSION: No acute findings. No PE. Thank you for allowing us to participate in the care of your patient. Dictated and Authenticated by: Dane Blakely MD 12/24/2020 12:40 AM Eastern Time ([place] & [place]) HPI <CHAPO Simon - Last Filed: 12/23/20 23:12> General Mode of arrival: ambulatory . Date/Time Provider Initiated Documentation: 12/23/20 21:55 . Limitations to Documentation: no limitations . Information obtained by: patient . HPI Narrative: This is a 60-year-old female, past medical history of anxiety, depression, GERD, migraines, seasonal allergic rhinitis, vitiligo, hypertension, presenting to the ER reporting episodes of bloody sputum over the past 24 hours. She is not anticoagulated. She states this is never happened before. She denies recent illness or trauma. She denies easy bruising or bleeding. She denies neck pain, chest pain, shortness of breath abdominal pain, nausea, vomiting, change in bowel or bladder function. She denies any pain in her legs, history of DVT or PE. She reports occasional minimal swelling of bilateral lower extremities. She also reports recurrent sinus issues, has had surgery by Dr. Matamoros. She reports that typical antihistamine and/or decongestants to help and she uses Flonase spray. She has felt congested and has been using the spray. She reports 2 days ago having had a mild frontal sinus headache but that has resolved. She does admit to mild rhinorrhea. This does not feel quite like her typical sinus issues. Related Data Home Medications Medication Instructions Recorded Confirmed amlodipine [Norvasc] 5 mg PO HS 11/19/12 12/23/20 fluticasone propionate [Flonase 9.9 ml NS 2 SPRAYS QD 02/04/15 12/23/20 Allergy Relief] famotidine 20 mg tablet 20 mg PO HS 10/02/19 12/23/20 lactobacillus combination no.8 3 3,000 mmu cells PO DAILY 10/02/19 12/23/20 billion cell capsule acetaminophen 500 mg capsule 500 mg PO QID PRN 12/26/19 12/23/20 celecoxib 200 mg capsule 200 mg PO DAILY PRN #90 cap 07/02/20 12/23/20 magnesium oxide 400 mg PO DAILY 12/23/20 12/23/20 Previous Rx's Medication Instructions Recorded celecoxib 200 mg capsule 200 mg PO DAILY PRN #90 cap 07/02/20 Allergies Allergy/AdvReac Type Severity Reaction Status Date / Time clindamycin Allergy Intermediate Skin Rash Verified 10/22/20 09:23 Estrogens Allergy Intermediate Skin Rash Verified 10/22/20 09:23 Penicillins Allergy Intermediate Skin Rash Verified 10/22/20 09:23 gabapentin Allergy Psychosis Verified 10/22/20 09:23 acetaminophen [From Vicodin] AdvReac Intermediate Verified 12/23/20 22:02 hydrocodone [From Vicodin] AdvReac Intermediate Verified 10/22/20 09:23 General Stated Complaint: RespSymp DREW: 2 Review of Systems <CHAPO Simon - Last Filed: 12/23/20 23:12> Constitutional Constitutional: Denies fatigue, Denies fever(s) and Reports headache(s) Eyes Eyes: Denies change in vision ENT Ears, Nose, Mouth, and Throat: Reports headache(s) and Reports neck pain (Chronic x1 year) Cardiovascular Cardiovascular: Denies chest pain and Denies dyspnea Respiratory Respiratory: Reports cough and Denies dyspnea Gastrointestinal Gastrointestinal: Denies abdominal pain, Denies nausea and Denies vomiting Genitourinary Genitourinary: Denies dysuria Musculoskeletal Musculoskeletal: Denies back pain Integumentary/Breasts Skin/Breast: Reports other (Vitiligo) Neurologic Neurologic: Reports headache(s) Endocrine Endocrine: Denies fatigue Hematologic/Lymphatic Hematologic/Lymphatic: Denies easy bleeding and Denies easy bruising PFS <CHAPO Simon - Last Filed: 12/23/20 23:12> Medical History Anxiety Arthritis of left acromioclavicular joint Depression GERD History of excessive cerumen Impingement syndrome of left shoulder Migraine Seasonal allergic rhinitis Superior labrum wtictzaa-fr-[id number] (SLAP) tear of left shoulder Tendinitis of long head of biceps brachii of left shoulder Vitiligo Surgical History Colon/endoscopy 07/2013 repeated negative endoscopy Diverticulosis colon done at [facility] Endometrial Ablation 2008 Ligation of fallopian tube 1984 R trochanteric bursectomy with IT band tenotomy 07/2012 Sinus cyst removed 2006 Status post arthroscopy of left shoulder (10/26/19) With biceps tenodesis Family History Other Heart disease Hyperlipidemia Personal history of malignant neoplasm Social History Smoking/Tobacco Use Status: Never Smoking risk assessment performed?: Yes Alcohol Intake: current Alcohol Intake frequency: holidays/special occasions only Drug use: Never Substance use type: does not use Current gender identity: female Do you feel safe at home: Yes Do you feel safe in your relationship?: Yes Exam <CHAPO Simon - Last Filed: 12/23/20 23:12> Const General: cooperative, healthy appearing, comfortable and no acute distress Orientation: alert and awake HENWI Head: normal to inspection, normocephalic and atraumatic Ears: external ears normal, TM's normal bilaterally and EAC's normal General nose exam: external nose normal, nares normal and nasal mucous membranes and turbinates normal Face and sinus: normal facial exam and sinuses tender Mouth: oral mucosae normal and moist mucous membranes Throat: posterior oropharynx normal Eyes General: appearance normal, both eyes and all related structures Conjunctivae: conjunctivae normal Neck Neck: normal visual inspection, full ROM, no meningeal signs, trachea midline and supple Resp Effort & Inspection: normal respiratory effort and able to speak in complete sentences Auscultation: clear to auscultation bilaterally Cardio Rate: regular rate Rhythm: regular rhythm GI Palpation: soft and nontender Back/Spine/Pelvis Back: No back tenderness Skin Rashes: no rashes Neuro General: patient alert, patient awake, moves all extremities and no focal motor deficits Cognition: normal cognition Speech: speech normal Gait: normal gait Motor: muscle tone normal throughout Sensory Exam: no sensory deficits noted Extrem General: normal to inspection, full ROM, capillary refill normal, no pedal edema and no calf tenderness Psych Appearance: grossly normal Mental Status: mental status grossly normal Course <CHAPO Simon - Last Filed: 12/23/20 23:12> Vital Signs Vital signs: Vital Signs Temperature 36.5 C 12/23/20 22:00 Pulse 102 H 12/23/20 22:00 Respiratory Rate 16 12/23/20 22:00 Blood Pressure 137/79 12/23/20 22:00 Pulse Oximetry 97 12/23/20 22:00 Temperature 36.5 C 12/23/20 22:00 Temperature Source Skin 12/23/20 22:00 Pulse 102 H 12/23/20 22:00 Respiratory Rate 16 12/23/20 22:00 Respiratory Effort 12/23/20 22:04 Blood Pressure 137/79 12/23/20 22:00 Blood Pressure Position Sitting 12/23/20 22:00 Pulse Oximetry 97 12/23/20 22:00 Oxygen Delivery Method Room Air 12/23/20 22:00 Oxygen Flow Rate 0 12/23/20 22:00 Sign Out <CHAPO Simon - Last Filed: 12/23/20 23:12> Sign Out Data: Sign Out Comment: 2 episodes of hemoptysis over the past 24 hours. Mild facial pressure 2 days ago. Reports chronic sinus issues, this is not feel exactly the same. Denies any chest pain, shortness of breath, anticoagulation, hormone therapy, history of DVT or PE. Received first Covid vaccine last week. Will obtain single troponin, EKG, screening laboratory values. Awaiting renal function today obtain CTA of chest for further evaluation of hemoptysis and mild tachycardia Last updated by Vineet Castellano PA at 12/23/20 23:11
--- NOTE | 2020-12-23 22:15 | RT.EKG_ITS ---
APPROVED REPORT Exam: Resting ECG Patient Location: E HR:91 bpm ECG Measurements Heart Rate 91 AXIS OH 179 P 69 QRSd 83 QRS 62 QT 372 T 67 QTc 458 Conclusion Sinus rhythm...normal P axis, V-rate 60- 99 Anteroseptal infarct, old...Q >40mS, V1-V2 unchanged st dep lateral v5-6 compared to 2017
--- NOTE | 2020-12-23 22:20 | DI.CT_ITS ---
EXAM: CT CHEST PE CTA CLINICAL HISTORY: Hemoptysis, tachycardia. TECHNIQUE: Imaging Protocol: CT angiography of the chest was performed using pulmonary embolus quinton col. Multi planar reconstructions were performed. CONTRAST MATERIAL: Intravenous: Omnipaque 350 Contrast volume: 100 cc FINDINGS: CHEST: PULMONARY ARTERIES: There are no intraluminal filling defects to suggest acute pulmonary emboli. LUNGS: Right lung is clear. There are mild increased markings in the left lower lobe posterior basal segment.. There are no pleural effusions. MEDIASTINUM: There is no hilar nor mediastinal adenopathy. Thyroid gland appears to contain nodules. CARDIAC: Heart size is upper normal. There is no pericardial effusion.Caliber of the thoracic aorta is within normal limits. There is no significant shift of the interventricular septum. PARTIALLY VISUALIZED UPPERMOST ABDOMEN: No obvious findings OSSEOUS: No significant osseous lesions.. IMPRESSION: 1. No evidence of acute pulmonary emboli. No evidence of pulmonary infarction.No pleural effusions. 2. Mild infiltrate is noted in the posterior basal segment of the left lower lobe. No pleural effusi on. No adenopathy. RADIATION DOSE DELIVERED: 391.32mGy.cm Total DLP DATA REPOSITORY: All CT scans at this facility are submitted to the National Radiology Data Registry (NRDR) Dose Index Registry (DIR) with the [employer] (ACR). RADIATION OPTIMIZATION: All CT scans at this facility use at least one of these dose optimization te chniques: automated exposure control; mA and/or kV adjustment per patient size (includes targeted exa ms where dose is matched to clinical indication); or iterative reconstruction.
[2020-12-23 22:48] LABS: Abs Immature Grans 0.01 10^3/uL (0.0-0.06); Absolute Basophil Count 0.04 10^3/uL (0.0-0.2); Absolute Eosinophil Count 0.23 10^3/uL (0.0-0.7); Absolute Lymphocyte Count 1.65 10^3/uL (1.2-3.4); Absolute Neutrophil Count 2.23 10^3/uL (1.2-6.7); Basophils % 0.8; Eosinophils % 4.7; HCT 36.9 % (36.0-46.0); Immature Grans % 0.2; MCH 29.5 pg (27.0-33.0); MCHC 32.5 % (32.0-36.0); MCV 90.7 fL (80-95); Monocytes % 14.4; Neutrophils % 45.9; Nucleated RBC 0 %; Platelet Count 261 10^3/uL (130-400); RBC 4.07 10^6/uL (3.93-5.22); RDW 12.7 % (11.7-14.6); RDW-SD 42.3 fL; WBC 4.86 10^3/uL (4.4-10.8)
[2020-12-23 23:07] LABS: PTT Activated 22.9 sec (21.0-27.5); Prothrombin Time 9.9 sec (9.3-11.0)
[2020-12-23 23:08] LABS: ALT 29 U/L (14-59); AST 14 U/L (15-37); Albumin 3.8 g/dL (3.4-5.0); Alkaline Phosphatase 79 U/L (46-116); Anion Gap 9.1 mmol/L (3-11); BUN 20 mg/dL (7-18); Bilirubin, Total 0.2 mg/dL (0.2-1.0); CO2 28.9 mmol/L (21.0-32.0); CREATININE 0.8 mg/dL (0.55-1.02); Calcium 8.9 mg/dL (8.5-10.1); Chloride 106 mmol/L (98-107); Glucose 119 mg/dL (74-106); Potassium 3.6 mmol/L (3.5-5.1); Sodium 144 mmol/L (136-145); Total Protein 7.6 g/dL (6.4-8.2); Troponin I < 0.05 ng/mL (<0.06)
[2020-12-23] MEDS: Normal Saline Flush 10 ML SYR IVP (23:33)
[2020-12-23] MEDS: Normal Saline - Diluent 50 ML VIAL IV (23:33)
--- NOTE | 2020-12-24 00:40 | DI.VRAD_ITS ---
PROCEDURE INFORMATION: Exam: CTA Chest With Contrast Exam date and time: 12/23/2020 11:39 PM Age: 60 years old Clinical indication: Other: Hemoptysis, tachycardia TECHNIQUE: Imaging protocol: Computed tomographic angiography of the chest with contrast. 3D rendering (Not supervised by radiologist): MIP and/or 3D reconstructed images were created by the technologist. Total images: 1930 Radiation optimization: All CT scans at this facility use at least one of these dose optimization techniques: automated exposure control; mA and/or kV adjustment per patient size (includes targeted exams where dose is matched to clinical indication); or iterative reconstruction. Contrast material: VISIPAQUE 320; Contrast volume: 70 ml; Contrast route: INTRAVENOUS (IV); COMPARISON: CR XR CHEST 2V PA LATERAL 06/14/2018 9:17 AM FINDINGS: Pulmonary arteries: No filling defect in the pulmonary arterial tree. Aorta: No aortic aneurysm. No aortic dissection. Respiratory motion in the region of the aortic root somewhat limits evaluation at that level. Other arteries: Incidental 1 cm distal splenic artery aneurysm. Lungs: There is minimal scarring at the left lung base. No consolidation or ground-glass disease. No suspicious parenchymal nodule. Central airways are patent. Pleural spaces: No pneumothorax. No pleural effusion. Heart: No pericardial effusion. Lymph nodes: No mediastinal, hilar or axillary adenopathy. Bones/joints: No significant bony or joint space abnormality. Soft tissues: Extrathoracic soft tissues are unremarkable. IMPRESSION: No acute findings. No PE. Dictated and Authenticated by: Dane Blakely MD. Ordering:CHRISTOPHER Manley MD
== END 2020-12-24 01:00 | disposition home or self-care (01) ==
PROVIDERS: Physician Assistant; Emergency Provider Student in an Organized Health Care Education/Training Program; PCP Internal Medicine
DX: R04.2 Hemoptysis (principal); R00.0 Tachycardia, unspecified
CPT/HCPCS: 71275; 80053; 93005; 99285; 84484; 85025; 85610; 85730; 93010; 99283

== ENCOUNTER 2021-04-28 03:46 | Outpatient (CLI) | payer OTHER, SELFPAY ==
--- NOTE | 2021-04-28 07:30 | DI.MRI_ITS ---
Exam(s) MR UPPER JOINT RT WO EXAM: MR UPPER JOINT RT WO CLINICAL HISTORY: Persistent pain, Tendonitis rt shoulder, arthritis, bursitis, impingement. TECHNIQUE: Multiplanar multisequence MRI was performed. COMPARISON: Plain films 02 July 2020 FINDINGS: Exam is limited by patient motion. Bones:There is no fracture or contusion pattern. The acromioclavicular joint is normal. There is min imal spurring of the tip of the acromion. There is a small amount of fluid in the subacromial subdeltoid bursa and subcoracoid bursa. No gleno humeral joint effusion. Rotator Cuff: There is thickening of the supraspinatus tendon distally and some increased intrasubsta nce signal. No full-thickness tear. The infraspinatus tendon is intact. The subscapularis and teres minor are normal. Labrum and biceps anchor: The biceps tendon is located. The anchor is well maintained. The labrum is within normal limits. N o muscle atrophy. IMPRESSION: Severe tendinosis versus partial tear supraspinatus tendon. DATA REPOSITORY:
== END 2021-04-28 04:06 ==
PROVIDERS: PCP Internal Medicine; Visit Provider Student in an Organized Health Care Education/Training Program
DX: M19.011 Primary osteoarthritis, right shoulder (principal); M75.21 Bicipital tendinitis, right shoulder; M75.41 Impingement syndrome of right shoulder; M75.51 Bursitis of right shoulder; R52 Pain, unspecified
CPT/HCPCS: 73221

== ENCOUNTER 2021-05-03 09:22 | Emergency (ER) | payer OTHER, SELFPAY ==
[2021-05-03 09:30] VITALS: BP 150/84; PULSE 88; RESP 20; TEMP 36.6; O2SAT 98
--- NOTE | 2021-05-03 09:30 | RT.EKG_ITS ---
APPROVED REPORT Exam: Resting ECG Reason for Exam: ab pain Patient Location: E HR:68 bpm ECG Measurements Heart Rate 68 AXIS ND 172 P 60 QRSd 85 QRS 57 QT 389 T 56 QTc 414 Conclusion Sinus rhythm...normal P axis Probable left atrial enlargement
[2021-05-03 09:44] LABS: Bilirubin Negative (Negative); Blood Small (Negative); Clarity Clear (Clear); Glucose Negative (Negative); Ketones Negative (Negative); Leukocyte Esterase Negative (Negative); Nitrite Negative (Negative); Specific Gravity >= 1.030 (1.005-1.025); Urobilinogen 0.2 EU/dL (Up TO 0.2)
--- NOTE | 2021-05-03 09:44 | ED.GENADUL_ITS ---
Discharge Plan Disposition Patient Disposition: HOME Condition: Improving Discharge Details Clinical Impression: Epigastric pain, Acid reflux, Fatty liver Primary Care Provider: Moustapha Givens ED Provider: Yareli Smith Home Meds and New Rx's Prescriptions: New sucralfate [Carafate] 1 gram tablet 1 g PO QACHS Qty: 60 RF: 0 Continued acetaminophen 500 mg capsule 500 mg PO QID PRNRF: 0 celecoxib 200 mg capsule 200 mg PO DAILY PRN (Reason: pain, shoulder) Qty: 90 RF: 0 Adult Probiotic 3 billion cell capsule 3,000 mmu cells PO DAILY RF: 0 fluticasone propionate [Flonase Allergy Relief] 9.9 ML spray,suspension 9.9 ml NS 2 SPRAYS QD RF: 0 amlodipine [Norvasc] 5 MG tablet 5 mg PO HS RF: 0 magnesium oxide 400 mg magnesium Tablet 400 mg PO DAILY RF: 0 estradiol [Estrace] 0.01 % (0.1 mg/gram) cream 2 g VAGINAL DAILY RF: 0 Emergen-C Immune Plus 1,000 mg Powder Effervescent In Packet 1 packet PO DAILY RF: 0 Discontinued pantoprazole 20 mg tablet,delayed release (DR/EC) 20 mg PO DAILY RF: 0 Discharge Instructions Instructions: GERD (Gastroesophageal Reflux Disease) (ED), Epigastric Pain (ED) Additional Instructions: Please take the Carafate as prescribed. Next dosing will be due with her next meal. Please encourage hydration. Please continue to monitor for foods that worsen your symptoms. Try to sleep in a more upright position. Keep your upcoming appointment with your primary care provider. At that time, please discuss possible need for repeat EGD with your scheduled colonoscopy. If you develop increased pain, inability stay hydrated, fever/chills or other new/worsening symptoms please seek care urgently once again Referrals: Nikko Coffman MD [ [facility] STAFF PHYSICIAN] - Medical Decision Making Patient is a pleasant 51-year-old female accompanied by significant other with chief complaint of abdominal pain. She reports she has chronic cramping of her abdomen and difficulty. With bowel movements. She reports associated with a strain. However, she reports that for the past 2 days she has developed a new discomfort in her abdomen. She reports that she has been having some burning cramping in the epigastric region. She links it with food but on discussion it sounds approximate 12 h after eating, typically when laying supine. She does report that she has a history of acid reflux. After ranitidine was taken off the market, she has had difficulty finding healing that was well for her. She is not able to link this with any fatty foods. She denies any fevers or chills. States that she has some nausea and something of acid reflux coming up towards her throat. Denies any chest pain. No exertional symptoms. No previous abdominal surgeries. On exam, patient appears nontoxic. Normal cardiac exam, lungs are clear. Patient has pain in the epigastric region as well as the right upper quadrant. Negative Ng sign. No peritoneal findings. Primarily concern at this time for increased acid reflux symptoms. Will treat with Carafate and Protonix. However, I'm also concerned with potential gallbladder disease and will obtain ultrasound. She not having any exertional symptoms of shortness of breath. Will obtain EKG and troponin out of abundance of caution. History and exam is not consistent with dissection. She does not have any peritoneal findings to suggest perforated viscus. I did consider pancreatitis based on location of discomfort. Recommend no alcohol. Pain seems to intermittently be pancreatitis and will screen with a lipase. Labs reviewed. No leukocytosis. Stable H&H. No abnormality is appreciated on CMP. Lipase within normal limits. Urine shows small blood but otherwise no significant abnormality. FINDINGS: Liver: There is diffuse increased echogenicity of the liver suggesting fatty infiltration. Gallbladder: Normal. No gallstones. There is no gallbladder wall thickening. Common bile duct: Normal. No stones. No dilation. Pancreas: Visualized pancreas is unremarkable. Right kidney: There is enlargement of the renal pelvis bilaterally suggesting extrarenal pelvis, but no caliectasis or hydroureter. Left kidney: Normal. No mass. No hydronephrosis. Spleen: Normal. No splenomegaly. Aorta: Normal. No aneurysm. Inferior vena cava: Normal. IMPRESSION: 1. Fatty infiltration liver. 2. Extrarenal pelvis without caliectasis or hydroureter. Reevaluated the patient. We discussed the findings. She reports feeling much improved after the tonics and Carafate. We'll continue her on the Carafate. Encourage hydration. Discussed close follow-up with primary care, GI she has an appointment the end of this week. Return precautions were discussed. All questions concerns were addressed and she is agreement with plan. She reported she left had an EGD and colonoscopy 10 years ago. States that she is due for another colonoscopy this year and will be discussing this further with her primary care at her upcoming appointment. HPI General Mode of arrival: ambulatory . Date/Time Provider Initiated Documentation: 05/03/21 09:28 . Limitations to Documentation: no limitations . Information obtained by: patient, family (significant other) and RN notes reviewed . History of Present Illness 61 year old F presents to the emergency department with the chief complaint of epigastric pain, described as moderate, with intensity rated at 4. Quality is described as burning and other (cramping), and is localized to the abdomen. Patient reports no radiation. Patient started experiencing this day(s) (2) and it has been constant. No relieving factors improve symptom(s), No exacerbating factors reported . Patient notes loss of appetite and nausea/vomiting (nausea, no vomiting); denies chest pain, cough, fever/chills, shortness of breath and weakness. Patient did receive the following treatments prior to arrival, none Related Data Home Medications Medication Instructions Recorded Confirmed amlodipine [Norvasc] 5 mg PO HS 11/19/12 05/03/21 fluticasone propionate [Flonase 9.9 ml NS 2 SPRAYS QD 02/04/15 05/03/21 Allergy Relief] lactobacillus combination no.8 3 3,000 mmu cells PO DAILY 10/02/19 05/03/21 billion cell capsule acetaminophen 500 mg capsule 500 mg PO QID PRN 12/26/19 05/03/21 celecoxib 200 mg capsule 200 mg PO DAILY PRN #90 cap 07/02/20 05/03/21 magnesium oxide 400 mg PO DAILY 12/23/20 05/03/21 Emergen-C Immune Plus 1 packet PO DAILY 05/03/21 05/03/21 estradiol [Estrace] 2 g VAGINAL DAILY 05/03/21 05/03/21 sucralfate [Carafate] 1 g PO QACHS #60 tab 05/03/21 Previous Rx's Medication Instructions Recorded celecoxib 200 mg capsule 200 mg PO DAILY PRN #90 cap 07/02/20 sucralfate [Carafate] 1 g PO QACHS #60 tab 05/03/21 Allergies Allergy/AdvReac Type Severity Reaction Status Date / Time clindamycin Allergy Intermediate Skin Rash Verified 05/03/21 09:32 Estrogens Allergy Intermediate Skin Rash Verified 05/03/21 09:32 Penicillins Allergy Intermediate Skin Rash Verified 05/03/21 09:32 gabapentin Allergy Psychosis Verified 05/03/21 09:32 acetaminophen [From Vicodin] AdvReac Intermediate Verified 05/03/21 09:32 hydrocodone [From Vicodin] AdvReac Intermediate Verified 05/03/21 09:32 General Stated Complaint: Abd Prob DREW: 3 Review of Systems Constitutional Constitutional: Reports as per HPI, Denies chills, Denies fatigue, Denies fever(s) and Denies headache(s) ENT Ears, Nose, Mouth, and Throat: Denies headache(s) Cardiovascular Cardiovascular: Reports as per HPI, Denies chest pain and Denies dyspnea Respiratory Respiratory: Reports as per HPI, Denies cough and Denies dyspnea Gastrointestinal Gastrointestinal: Reports as per HPI Musculoskeletal Musculoskeletal: Reports as per HPI and Denies back pain Integumentary/Breasts Skin/Breast: Reports as per HPI and Denies rash Neurologic Neurologic: Reports as per HPI and Denies headache(s) Endocrine Endocrine: Denies fatigue [facility] Medical History Anxiety Arthritis of left acromioclavicular joint Depression GERD History of excessive cerumen Impingement syndrome of left shoulder Migraine Seasonal allergic rhinitis Superior labrum hpkdombg-[id number]-lxykrwfsw (SLAP) tear of left shoulder Tendinitis of long head of biceps brachii of left shoulder Vitiligo Surgical History Colon/endoscopy 07/2013 repeated negative endoscopy Diverticulosis colon done at [facility] Endometrial Ablation 2008 Ligation of fallopian tube 1984 R trochanteric bursectomy with IT band tenotomy 07/2012 Sinus cyst removed 2006 Status post arthroscopy of left shoulder (10/26/19) With biceps tenodesis Family History Other Heart disease Hyperlipidemia Personal history of malignant neoplasm Social History Smoking/Tobacco Use Status: Never Smoking risk assessment performed?: Yes Alcohol Intake: current Alcohol Intake frequency: holidays/special occasions only Drug use: Never Substance use type: does not use Current gender identity: female Do you feel safe at home: Yes Do you feel safe in your relationship?: Yes Exam Const General: cooperative, healthy appearing, comfortable, no acute distress and well developed Nutritional Appearance: average body habitus and well nourished Orientation: alert and awake [facility] Head: normal to inspection Mouth: moist mucous membranes Resp Effort & Inspection: normal respiratory effort, able to speak in complete sentences and no respiratory distress Auscultation: clear to auscultation bilaterally, no rales, no rhonchi and no wheezes Cardio Rate: regular rate Rhythm: regular rhythm Heart Sounds: S1 normal and S2 normal GI Inspection: normal to inspection, no edema and non-distended Palpation: soft, no hepatosplenomegaly, not firm, no guarding, no hernias, not rigid and tender in the epigastrum and in the RUQ; not at McBurney's point and Ng's sign negative Percussion: normal to percussion Auscultation: normal bowel sounds Back/Spine/Pelvis Back: no CVA tenderness Skin General skin exam: no rashes or lesions noted Trauma: no lacerations or abrasions Neuro General: patient alert and patient awake Cognition: normal cognition Speech: speech normal Gait: normal gait Psych Appearance: grossly normal and well kempt Mental Status: mental status grossly normal Speech and Movement: speech and movement normal Course Vital Signs Vital signs: Vital Signs Temperature 36.6 C 05/03/21 09:30 Pulse 88 05/03/21 09:30 Respiratory Rate 20 05/03/21 09:30 Blood Pressure 150/84 H 05/03/21 09:30 Pulse Oximetry 98 05/03/21 09:30 Temperature 36.6 C 05/03/21 09:30 Temperature Source Skin 05/03/21 09:30 Pulse 88 05/03/21 09:30 Respiratory Rate 20 05/03/21 09:30 Respiratory Effort Non-Labored 05/03/21 09:33 Blood Pressure 150/84 H 05/03/21 09:30 Blood Pressure Position Sitting 05/03/21 09:30 Pulse Oximetry 98 05/03/21 09:30 Oxygen Delivery Method Room Air 05/03/21 09:30 Oxygen Flow Rate 0 05/03/21 09:30 Pain Level 4 05/03/21 09:33
--- NOTE | 2021-05-03 09:45 | DI.US_ITS ---
Exam(s) US ABDOMEN EXAM: US ABDOMEN CLINICAL HISTORY: epigastric pain, worse with eating, ?GB disease TECHNIQUE: Ultrasound abdomen performed using standard protocol. CT CT CHEST PE CTA from 12/23/2020 FINDINGS: ABDOMINAL AORTA AND IVC: Visualized portions normal caliber. PANCREAS: Normal where visualized. LIVER: Increased echogenicity of the liver consistent with fatty infiltration. The liver measures 15 .4 cm long. Hepatopedal flow in the Portal Vein. GALLBLADDER: No evidence of cholelithiasis. No evidence of wall thickening. No pericholecystic fluid identified. BILIARY SYSTEM: Common bile duct measures < 7 mm. No intrahepatic biliary ductal dilation. BALDWIN'S SIGN: Negative. KIDNEYS: Kidneys are symmetric in size. No evidence of renal calculi. There is enlargement of the reilly al pelves bilaterally suggesting extrarenal pelves, but no evidence of hydronephrosis. No renal mass or cyst identified. SPLEEN: Not enlarged. ASCITES: None seen. IMPRESSION: 1. Fatty infiltration of the liver. 2. No evidence of cholelithiasis or biliary ductal dilatation. 3. Bilateral extrarenal pelves without evidence of hydroureter or caliectasis. DATA REPOSITORY:
[2021-05-03 09:50] LABS: Bacteria Rare HPF (Negative); C & S Indicated? No; Casts Negative LPF (Negative); Crystals Negative HPF (Negative); Epithelial Cells Rare HPF (Negative); Mucus Trace (Negative); WBC 0-2 HPF (0-5)
[2021-05-03 09:54] LABS: Abs Immature Grans 0.01 10^3/uL (0.0-0.06); Absolute Basophil Count 0.03 10^3/uL (0.0-0.2); Absolute Eosinophil Count 0.11 10^3/uL (0.0-0.7); Absolute Lymphocyte Count 1.61 10^3/uL (1.2-3.4); Absolute Monocyte Count 0.47 10^3/uL (0.1-0.8); Absolute Neutrophil Count 2.94 10^3/uL (1.2-6.7); Basophils % 0.6; Eosinophils % 2.1; HCT 38.7 % (36.0-46.0); HGB 12.3 g/dL (11.2-15.7); Immature Grans % 0.2; Lymphocytes % 31.1; MCHC 31.8 % (32.0-36.0); MCV 91.3 fL (80-95); MPV 10.1 fL (8.0-11.0); Monocytes % 9.1; Neutrophils % 56.9; Nucleated RBC 0 %; Platelet Count 277 10^3/uL (130-400); RBC 4.24 10^6/uL (3.93-5.22); RDW 13.2 % (11.7-14.6); RDW-SD 44.6 fL; WBC 5.17 10^3/uL (4.4-10.8)
[2021-05-03] MEDS: Normal Saline 1,000 ML 1000 ML IV (09:55)
[2021-05-03] MEDS: Pantoprazole 40 MG VIAL IVP (10:04)
[2021-05-03 10:11] LABS: ALT 28 U/L (14-59); AST 15 U/L (15-37); Albumin 4.2 g/dL (3.4-5.0); Alkaline Phosphatase 71 U/L (46-116); Anion Gap 7.8 mmol/L (3-11); BUN 15 mg/dL (7-18); Bilirubin, Total 0.5 mg/dL (0.2-1.0); CO2 29.2 mmol/L (21.0-32.0); CREATININE 0.9 mg/dL (0.55-1.02); Calcium 9.6 mg/dL (8.5-10.1); Chloride 106 mmol/L (98-107); Glucose 111 mg/dL (74-106); Lipase 79 U/L (73-393); Potassium 3.7 mmol/L (3.5-5.1); Sodium 143 mmol/L (136-145); Total Protein 8.1 g/dL (6.4-8.2); Troponin I < 0.05 ng/mL (<0.06)
[2021-05-03 10:54] VITALS: BP 136/78; PULSE 75; RESP 18; TEMP 36.6; O2SAT 98
[2021-05-03] MEDS: Sucralfate 1 GM TAB PO (10:55)
--- NOTE | 2021-05-03 11:21 | DI.VRAD_ITS ---
PROCEDURE INFORMATION: Exam: US Abdomen Complete Exam date and time: 05/03/2021 9:47 AM Age: 61 years old Clinical indication: Other: Epigastric pain, worse with eating, ? gb disease TECHNIQUE: Imaging protocol: Real-time ultrasound of the abdomen with image documentation. COMPARISON: CT Abdomen^ROUTINE ABDOMEN PELVIS WITH CONTRAST (Adult) 07/11/2018 9:24 AM FINDINGS: Liver: There is diffuse increased echogenicity of the liver suggesting fatty infiltration. Gallbladder: Normal. No gallstones. There is no gallbladder wall thickening. Common bile duct: Normal. No stones. No dilation. Pancreas: Visualized pancreas is unremarkable. Right kidney: There is enlargement of the renal pelvis bilaterally suggesting extrarenal pelvis, but no caliectasis or hydroureter. Left kidney: Normal. No mass. No hydronephrosis. Spleen: Normal. No splenomegaly. Aorta: Normal. No aneurysm. Inferior vena cava: Normal. IMPRESSION: 1. Fatty infiltration liver. 2. Extrarenal pelvis without caliectasis or hydroureter. Dictated and Authenticated by: Carlos Corona MD. Ordering:DAX Downs MD
[2021-05-03 11:57] VITALS: BP 131/81; PULSE 71; TEMP 36.6; O2SAT 96
== END 2021-05-03 11:59 | disposition home or self-care (01) ==
PROVIDERS: Emergency Provider Physician Assistant; PCP Internal Medicine
DX: R10.13 Epigastric pain (principal); K21.9 Gastro-esophageal reflux disease without esophagitis; K76.0 Fatty (change of) liver, not elsewhere classified
CPT/HCPCS: 36415; 80053; 83690; 93005; 96361; 96374; 99284; 76700; 81003; 81015; 83735; 84484; 85025; 93010

== ENCOUNTER 2021-05-12 10:19 | Outpatient (CLI) | payer OTHER, SELFPAY ==
--- NOTE | 2021-05-12 10:00 | DI.RAD_ITS ---
Exam(s) XR HIP RT COMPLETE AP PELVIS EXAM: XR HIP RT COMPLETE AP PELVIS INDICATION: TROCHANTERIC BURSITIS OF RIGHT HIP. COMPARISON: MR MR lower joint RT wo from 05/17/2018 TECHNIQUE: 2D digital imaging was performed. FINDINGS: Hip joint spaces are well maintained. There is mild acetabular spurring. There are mild enthesophyt es at the greater trochanters. Mild spurring is seen at the SI joints and pubic symphysis. No joint space or soft tissue calcifications are seen. No areas of bony destruction. IMPRESSION: Mild degenerative changes. DATA REPOSITORY: RADIATION DOSE DELIVERED:
--- NOTE | 2021-05-12 10:23 | DI.RAD_ITS ---
Exam(s) XR KNEE RT 3V AP,LAT,ZENAIDA EXAM: XR KNEE RT 3V AP,LAT,ZENAIDA CLINICAL HISTORY: ARTHRITIS OF KNEE,RIGHT. TECHNIQUE: 2D digital imaging was performed. COMPARISON: No exams were available for comparison FINDINGS: BONES: No acute fracture is present. No bony destructive lesion is seen. Minimal spurring at the tibi al spines and articular aspect of the patella. JOINTS: The knee is normally aligned. No joint effusion is seen. SOFT TISSUE: Normal. IMPRESSION: Minimal degenerative changes. DATA REPOSITORY: RADIATION DOSE DELIVERED:
== END 2021-05-12 10:20 | disposition home or self-care (01) ==
PROVIDERS: PCP Internal Medicine; Referring Provider Internal Medicine; Visit Provider Student in an Organized Health Care Education/Training Program
DX: M17.0 Bilateral primary osteoarthritis of knee (principal); M70.61 Trochanteric bursitis, right hip
CPT/HCPCS: 73562; 73502

== ENCOUNTER 2021-05-18 02:59 | Outpatient (CLI) | payer OTHER, SELFPAY ==
--- NOTE | 2021-05-18 10:53 | DI.MAMMO_ITS ---
Exam(s) MAMMO SCREENING EXAM: MAMMO SCREENING CLINICAL HISTORY: SCREENING, Z12.31 TECHNIQUE: Mammograms were interpreted according to the usual protocol including computer analysis w [employer] CAD system, tomosynthesis and C-view imaging. COMPARISON: 2011 through 2019 FINDINGS: The breasts are composed of scattered fibroglandular densities, Breast Density category B. No suspicious masses or suspicious microcalcifications are seen. No skin thickening or abnormal axillary lymph nodes are seen. There has been no significant change from prior exams. IMPRESSION: BI-RADS Category 1, Negative mammogram Yearly screening mammography is recommended. Breast Density - Category B, scattered fibroglandular densities. A negative radiographic report should not delay biopsy if a dominant or clinically suspicious mass is present. Up to ten percent of cancers are not identified on mammography. A negative report may reinforce clinical impression. Adenosis and dense breasts may obscure an underlying neoplasm. False positive reports average 6 to 10%. Patient will receive a letter notifying them of these results.
== END 2021-05-18 03:19 ==
PROVIDERS: PCP Internal Medicine; Visit Provider Nurse Practitioner Family
DX: Z12.31 Encounter for screening mammogram for malignant neoplasm of breast (principal)
CPT/HCPCS: 77063; 77067

== ENCOUNTER 2021-06-03 02:59 | Outpatient (CLI) | payer OTHER, SELFPAY ==
[2021-06-03 13:09] LABS: Source Nasal/Nares
[2021-06-03 18:14] LABS: COVID-19 PCR Negative (Negative)
== END 2021-06-03 03:00 | disposition home or self-care (01) ==
LOC: LBO 02:59
PROVIDERS: PCP Family Medicine; Visit Provider Student in an Organized Health Care Education/Training Program
DX: Z20.822 Contact with and (suspected) exposure to COVID-19 (principal); Z01.818 Encounter for other preprocedural examination
CPT/HCPCS: 87635

== ENCOUNTER 2021-06-05 06:03 | Day surgery (SDC) | payer OTHER, SELFPAY ==
[2021-06-05] VITALS (8 sets, daily range): BP systolic 100–114; BP diastolic 54–81; PULSE 85–111; RESP 15–18; TEMP 36.2–36.7; O2SAT 95–97; BMI 22.6
[2021-06-05] MEDS: Lactated Ringers 1,000 ML 100 ML IV (06:45)
[2021-06-05] MEDS: FAMOTIDINE 20 MG/50 ML BAG 200 MG IVPB (06:53)
[2021-06-05] MEDS: Sodium Citrate 30 ML CUP PO (06:53)
--- NOTE | 2021-06-05 07:02 | W.ANESPRE ---
General Info Date of Service Date Performed: 06/05/21 Height: 5 ft 5 in Weight: 61.6 kg Body Mass Index (BMI): 22.6 Surgical Procedure: Operation Date: 06/05/21 07:40 Proposed Procedures Side Surgeon p SHOULDER arthroscopy with extensive debridement,subacromial decompression,distal clavicle exc and possible rotator cuff Right Trey Ricci MD s Shoulder Bicep Tenodesis Right Trey Ricci MD Meds Allergies and Home Medications Allergies Allergy/AdvReac Type Severity Reaction Status Date / Time clindamycin Allergy Intermediate Skin Rash Verified 06/05/21 06:24 Estrogens Allergy Intermediate Skin Rash Verified 06/05/21 06:24 Penicillins Allergy Intermediate Skin Rash Verified 06/05/21 06:24 gabapentin Allergy Psychosis Verified 06/05/21 06:24 acetaminophen [From Vicodin] AdvReac Intermediate Verified 06/05/21 06:24 hydrocodone [From Vicodin] AdvReac Intermediate Verified 06/05/21 06:24 Home Medication Medication Instructions Recorded amlodipine [Norvasc] 5 mg PO HS 11/19/12 fluticasone propionate [Flonase 9.9 ml NS 2 SPRAYS QD 02/04/15 Allergy Relief] lactobacillus combination no.8 3 3,000 mmu cells PO DAILY 10/02/19 billion cell capsule acetaminophen 500 mg capsule 500 mg PO QID PRN 12/26/19 celecoxib 200 mg capsule 200 mg PO DAILY PRN #90 cap 07/02/20 magnesium oxide 400 mg PO DAILY 12/23/20 Emergen-C Immune Plus 1 packet PO DAILY 05/03/21 famotidine 40 mg PO HS 06/02/21 Current Visit Medications: Current Medications Generic Name Dose Route Start Last Admin Trade Name Freq PRN Reason Stop Dose Admin Ephedrine Sulfate 0 mg 06/05/21 06:39 Ephedrine 50 Mg/Ml Vial IVP DIRECTED PRN Fentanyl 0 mcg 06/05/21 06:39 Fentanyl 100 Mcg/2 Ml Vial IVP DIRECTED PRN Ringer's Solution 1,000 mls @ 100 mls/hr 06/05/21 06:00 06/05/21 06:45 IV 07/04/21 23:59 100 mls/hr INFUSION DEYANIRA Administration Cefazolin Sodium/Dextrose 2 gm in 50 mls @ 100 mls/hr 06/05/21 06:00 Ancef Duplex IVPB 07/04/21 23:59 PREOP DEYANIRA Promethazine HCl 6.25 mg/ 50.25 mls @ 200 mls/hr 06/05/21 06:39 Sodium Chloride IVPB DIRECTED PRN Nausea IV Miscellaneous Supplies 1 each 06/05/21 06:00 Iv Access IV 07/04/21 23:59 DIRECTED DEYANIRA Naloxone HCl 0 mg 06/05/21 06:39 Naloxone 0.4 Mg/Ml Vial IVP PRN PRN Sodium Chloride 0 ml 06/05/21 06:00 Normal Saline Flush 10 Ml Syr IV 07/04/21 23:59 PRN PRN Sodium Chloride 0 ml 06/05/21 06:00 Normal Saline 10 Ml Vial IJ 07/04/21 23:59 DIRECTED PRN Sterile Water 0 ml 06/05/21 06:00 Water,Injection,Sterile 10 Ml Vial IJ 07/04/21 23:59 DIRECTED PRN PFSH Active Problems Active Problems: Problem Status Onset Code Atrophic vaginitis 12/31/13 N95.2 Carpal tunnel syndrome on both sides 02/05/15 G56.03 Chronic rhinitis 08/19/16 J31.0 Deviated nasal septum 03/25/16 J34.2 Dyspareunia 05/17/17 Hypertrophy of inferior nasal turbinate 03/25/16 J34.3 Mass of face 09/01/17 R22.0 Mass of left ear auricle 07/21/17 H93.8X2 Nasal congestion 03/25/16 R09.81 Vaginal atrophy 01/01/15 N95.2 Vitiligo 01/01/13 L80 Contusion of left foot, initial encounter ~10/2019 S90.32XA Adhesive capsulitis of left shoulder M75.02 Scapular dyskinesis G25.89 Strain of cervical portion of left trapezius muscle S16.1XXA Tendonitis of long head of biceps brachii of right shoulder M75.21 Blood-tinged sputum R04.2 Post-nasal drip R09.82 Arthritis of right acromioclavicular joint M19.011 Bursitis of right shoulder M75.51 Impingement syndrome of right shoulder M75.41 Labral tear of hip joint S73.199A Trochanteric bursitis of right hip M70.61 Iliotibial band syndrome of right side M76.31 Arthritis of knee, right M17.11 Epigastric pain R10.13 Acid reflux K21.9 Fatty liver K76.0 Status post arthroscopy of left shoulder 10/26/19 Z98.890 Medical History Medical History Anxiety Arthritis of left acromioclavicular joint Depression GERD History of excessive cerumen Impingement syndrome of left shoulder Migraine Seasonal allergic rhinitis Superior labrum xgblrnur-dt-rfjjsfsfi (SLAP) tear of left shoulder Tendinitis of long head of biceps brachii of left shoulder Vitiligo Surgical History Surgical History (Updated 06/05/21 @ 06:25 by Rafaela Valero, GIA) Colon/endoscopy 07/2013 repeated negative endoscopy Diverticulosis colon done at [facility] Endometrial Ablation 2008 History of surgical removal of ganglion cyst x2, R foot, L hand Ligation of fallopian tube 1984 R trochanteric bursectomy with IT band tenotomy 07/2012 Sinus cyst removed 2006 Status post arthroscopy of left shoulder (10/26/19) With biceps tenodesis Tobacco Smoking/Tobacco Use Status: Never Alcohol Alcohol Intake: current Alcohol intake frequency: holidays/special occasions only Substance Use Substance use: Never Substance use type: does not use Vital Signs and Lab Results Vital Signs Most Recent Vital Signs in EMR: Most Recent Vital Signs Temp Pulse Resp BP Pulse Ox 36.7 C 90 16 111/81 97 06/05/21 06:16 06/05/21 06:16 06/05/21 06:16 06/05/21 06:16 06/05/21 06:16 Lab Results Blood Type / Crossmatch: No Data to Display Complete Blood Count: No Data to Display Complete Metabolic Panel: No Data to Display Liver Function Panel: No Data to Display Coagulation Panel: No Data to Display Cardiac Panel: No Data to Display Arterial Blood Gas: No Data to Display Venous Blood Gas: No Data to Display Pancreas Panel: No Data to Display Thyroid Panel: No Data to Display Infectious Disease: Coronavirus (COVID-19)(PCR) Negative (Negative) 06/03/21 08:52 06/03/21 Coronavirus 2019 Source Nasal/Nares 06/03/21 08:52 06/03/21 Blood Cultures: No Data to Display Toxicology Panel: No Data to Display Imaging and Studies Imaging and Studies EKG Summary: Conclusion Sinus rhythm...normal P axis Probable left atrial enlargement 05/03/21 Anesthesia Assessment and Plan Anesthesia History Personal History: No History of Anesthesia Complications Family History: No Family History of Anesthesia Complications Exercise Tolerance Exercise Tolerance: Metabolic Equivalents>4 Pertinent Negatives Pertinent Negatives: No Major Cardiovascular Symptoms or Complaints, No Major Pulmonary Symptoms or Complaints, No History of CVA/TIA and Other (Bicitra ad pepcid given for symptoms of GeRD earlier this AM) Cardiac & Pulmonary Exam Cardiac Exam: Normal S1/S2 Heart Sounds Pulmonary Exam: Clear Bilateral Breath Sounds Airway Exam Known Difficult Airway: No Mallampati Class: 2 Mouth Opening: Normal (> 3cm) Thyromental Distance: Less than 3 cm Neck Range of Motion: Full ROM Neck Circumference: Normal Teeth Condition: Normal Dentition ASA Classification ASA Score: ASA 2 Emergency Case?: No NPO Status NPO Status: NPO Clears >2 hours, Solids >8 hours Anesthesia Plan Resuscitation Status: Full Code Anesthesia Technique: General Anesthesia Airway Planned: Endotracheal Tube Pain Management: Surgeon and patient request nerve block Monitors Used: Standard Monitors
[2021-06-05] MEDS: ceFAZolin 2 GM/50 ML BAG IVPB (07:39)
[2021-06-05] MEDS: EPINEPHrine 30 MG/30 ML VIAL (08:17)
--- NOTE | 2021-06-05 09:20 | W.PM.DSUDISC ---
Discharge Plan Disposition Patient Disposition: HOME Condition: Stable Discharge Details Reason For Visit: Right shoulder surgery Attending Provider: Trey Ricci Primary Care Provider: Nikko Coffman Home Meds and New Rx's Prescriptions: New aspirin 81 mg tablet,delayed release (DR/EC) 81 mg PO DAILY 14 Days Qty: 14 RF: 0 naproxen 250 mg tablet 250 - 500 mg PO BID PRN (Reason: Moderate pain or swelling) Qty: 30 RF: 0 oxycodone 5 mg tablet 5 - 10 mg PO Q4H PRN (Reason: moderate to severe pain) Qty: 12 RF: 0 Continued acetaminophen 500 mg capsule 500 mg PO QID PRNRF: 0 Adult Probiotic 3 billion cell capsule 3,000 mmu cells PO DAILY RF: 0 fluticasone propionate [Flonase Allergy Relief] 9.9 ML spray,suspension 9.9 ml NS 2 SPRAYS QD RF: 0 amlodipine [Norvasc] 5 MG tablet 5 mg PO HS RF: 0 magnesium oxide 400 mg magnesium Tablet 400 mg PO DAILY RF: 0 Emergen-C Immune Plus 1,000 mg Powder Effervescent In Packet 1 packet PO DAILY RF: 0 famotidine 40 mg tablet 40 mg PO HS RF: 0 Discontinued celecoxib 200 mg capsule 200 mg PO DAILY PRN (Reason: pain, shoulder) Qty: 90 RF: 0 Discharge Instructions Additional Instructions: Surgery: Shoulder arthroscopy with extensive debridement, distal clavicle excision, subacromial decompression, and mini open biceps tenodesis. Activity: You should gradually increase range of motion motion and use of your shoulder. Please perform daily range of motion exercises. You may use your shoulder for all regular activities. Avoid heavy lifting, reaching overhead, and lifting away from body for approximately 6 to 8 weeks. You may use the sling whenever you are out of the house for a few weeks. At home it is best to remove the sling and rest the arm on a pillow at your side or support the operative side with your other hand. A physical therapy prescription will be sent electronically to start in about 2-3 weeks. Prescriptions: Aspirin 81 mg take 1 daily to prevent a blood clot for 2 weeks Naproxen 250 mg take 1-2 every 12 hours with a meal as needed for moderate pain Oxycodone 5 mg take 1-2 every 4-6 hours as needed for severe pain You may use [id number] Tylenol (acetaminophen) as needed for mild pain. These pain medications may be taken all at once or in different combinations as needed. Also, recommend Colace (docusate) as a stool softener as surgery and pain medicine cause constipation. Dressings: Remove shoulder bandage after 3 days. Leave the sticky Steri-Strips in place until they fall off or remove them after you shower. Cover the incisions with Band-Aids or leave them open to air. The biceps bandage (inside upper arm) is glued on separately. You may leave this one on a few days longer if it is difficult to remove. There is also glue underneath this bandage that can be left in place until it peels off. You may shower after 5 days. Follow-up: 10-[address] Ricci You may take off the leg compression stockings this evening at home. You may also leave them on a few days longer if you have a history of leg swelling or edema. Let us know right away if you develop any redness, drainage, fevers, chest pain, or trouble breathing. Do not drink alcohol or drive for at least 24 hours after anesthesia. Please call the office during business hours with any questions or concerns. Referrals: Trey Ricci MD [ [facility] STAFF PHYSICIAN] - Discharge Orders Discharge Orders: Discharge Order (Routine); Ordered 06/05/21 Ordered By: Trey Ricci DS: Diagnosis Discharge Diagnosis (1) Tendonitis of long head of biceps brachii of right shoulder: Status: Acute (2) Arthritis of right acromioclavicular joint: Status: Acute (3) Bursitis of right shoulder: Status: Acute (4) Impingement syndrome of right shoulder: Status: Acute
--- NOTE | 2021-06-05 09:27 | W.PM.OP ---
Date of service: 06/05/21 Time of Service: 08:00 Operative Note Operative Note DATE OF PROCEDURE: 06/05/21 PRE-OP DIAGNOSIS: Right: 1. Rotator cuff tear 2. LHB tendinopathy 3. Bursitis 4. Impingement 5. AC joint arthritis POST-OP DIAGNOSIS: other Right: 1. SLAP tear 2. LHB tendinopathy 3. Bursitis 4. Impingement 5. AC joint arthritis PROCEDURE: Right: 1. Open biceps tenodesis, CPT# 88718. This involved reattaching the long head of the biceps tendon to the proximal humerus in the sub-pectoral area of the bicipital groove at the correct tension. 2. Extensive debridement, CPT# 70763. This involved using arthroscopic hand instruments, power instruments, and radiofrequency instruments to release the long head of the biceps tendon and debride areas of labral tearing, SLAP tear, synovitis, and partially release MGHL/ Laura complex within the glenohumeral joint anteriorly, superiorly and posteriorly. 3. Arthroscopic distal clavicle excision, CPT# 34700. This involved arthroscopically exposing the underside of the acromioclavicular joint, smoothing out bone spurs, and removing approximately 5 mm of the distal clavicle so there was no bone left engaging the acromion. 4. Subacromial decompression with partial acromioplasty, CPT# 81126. This involved using arthroscopic power instruments and a radiofrequency wand to complete a bursectomy and remove bone spurs on the undersurface of the acromion. The corporate administrative assistant was medically required in order to help assist in techniques above, which require positioning the arm, holding the arthroscope, and manipulating multiple instruments and sutures at the same time. This cannot be done without the help of an experienced corporate administrative assistant. SURGEON: Trey Ricci RETAIL SUPPORT ASSOCIATE: Yaya Thornton ANESTHESIA TYPE: Local By Surgeon, General LMA/ETT and Primary Nerve Block Refer to Anesthesia Record ESTIMATED BLOOD LOSS: 10 PATHOLOGY: none sent COMPLICATIONS: None Patient was transported to: PACU Patient's condition: stable Implants: Arthrex: Unicortical Proximal Biceps Tenodesis Button Indications: The patient was diagnosed with the above conditions and appropriately indicated for surgical intervention. Please see complete medical record for details. Findings: Exam under anesthesia: Full range of motion, no instability Glenohumeral joint: Significant anterior synovitis. Displaced anterior labral tissue continuing into significant SLAP tear with biceps injection inflammation. Thin, wispy anterior labrum separate from anterosuperior labrum likely part of a [place] complex with reese, cordlike MGHL. Small longitudinal upper border subscapularis partial tearing with no significant displacement of tissue or involvement of the attachment to the lesser tuberosity. Intact biceps sling without any medial subluxation. Mild posterior labral fraying and adjacent synovitis. No significant articular sided supraspinatus or infraspinatus rotator cuff tear. Somewhat large posterior humeral head bare spot. Subacromial space: Moderate bursitis. Moderate diffuse bursal rotator cuff fraying and inflammation without any herrera tearing. Moderate undersurface acromial bone spur. Significant impinging distal clavicle acromion joint. Procedure Description: In the operating room, general anesthesia was induced. Bilateral shoulders were examined. The patient was positioned in the beachchair position. All bony prominences were well-padded. Preoperative antibiotics were administered. The shoulder was prepped and draped in the usual sterile fashion. The correct patient, procedure, and side of the procedure were all verified prior to incision. Starting through the posterior portal a standard complete diagnostic arthroscopy was performed of the glenohumeral joint including inspection of the long head of the biceps, anterior and superior labrum, subscapularis tendon, supraspinatus and infraspinatus tendons, and axillary recess. The glenoid and humeral head cartilage as well as the posterior labrum were inspected from an anterior viewing portal. Significant findings and interventions noted above. The biceps tendon was released from the superior labrum using scissors. Starting through the posterior portal, the arthroscope was directed into the subacromial space. A lateral 50 yard line lateral portal was created. A combination of power instruments and a radiofrequency ablator were used to debride bursitis anteriorly, posteriorly, and laterally as well as expose and smooth bone spurring on the undersurface of the acromion. The coracoacromial ligament was partially released. The bursectomy was completed viewing laterally and working from posteriorly and the rotator cuff was thoroughly inspected with findings noted above. The anterior portal was redirected towards the undersurface of the AC joint. A shaver and electrocautery device were used to clear soft tissue from the undersurface of the AC joint. The distalmost 5 mm of the distal clavicle was then removed and smoothed with a shaver and boo. Care was taken to ensure that proper amount of bone was removed and there was no engaging bone left behind especially superiorly. The shoulder was drained of arthroscopic fluid. 20 cc of 0.25% bupivacaine with epinephrine had been infiltrated about a 2-3 cm planned longitudinal incision at the inferior margin of the pectoralis major localized over the long head of the biceps tendon at the start of the case. Blunt and sharp dissection were used to expose the tendon in the bicipital groove. The tendon was brought out of the wound and kept off the skin on top of a blue towel. The correct location for sub-pectoral fixation was localized, prepped with a rasp, and then drilled with a 3.2 mm drill pin in a unicortical fashion. Using a fiber loop suture the tendon was prepped from the musculotendinous junction a few centimeters proximal. The excess tendon was amputated. The free suture ends were then passed through the unicortical button implant. The drill pin was removed and the implant was placed into the humeral intramedullary canal. The button was flipped and the sutures were tensioned bringing the tendon down to bone. Tension and fixation were then tested and found to be appropriate. The free ends of the suture were brought on either side of the tendon over the button and tied compressing tendon to bone. The wound was copiously irrigated with normal saline. Subcutaneous tissue was closed using 3-0 Monocryl in a buried interrupted fashion. Skin was closed using 3-0 Monocryl in a buried subcuticular running fashion. Skin glue was applied over the incision. Mastisol was applied about the incision. The incision was covered with Telfa, gauze, and covered with a Tegaderm dressing. All portal sites were copiously irrigated. These incisions were closed using 3-0 Monocryl in a buried fashion and then covered with Mastisol, Steri-Strips, Xeroform, dry gauze, and ABDs. The dressings were covered and secured with Medipore tape. The operative extremity was placed into a sling for immobilization. The patient awoke from anesthesia without complication and was transferred to the recovery room in a stable condition.
--- NOTE | 2021-06-05 10:04 | W.ANESNERVE ---
Nerve Block Single Injection Procedure Date and Time Date Performed: 06/05/21 Procedure Start: 07:16 Location Where Procedure Performed Procedure Location: PACU Reason Performed: Postoperative Analgesia Requesting Provider: Trey Ricci Timeout Performed Timeout Performed: Yes Monitoring Used ECG, Blood Pressure and SpO2 Sterility Sterility: Hand Hygiene, Surgical Cap, Surgical Mask, Sterile Gloves and Chlorhexidine Sedation Given During Procedure Sedation Given (Indicate Dose Given): Versed IV Dose:: 2 mg Patient Mental Status Patient Mental Status: Sedate with meaningful communication Nerve Block 1st Nerve Block: Laterality: Right Block Type: Interscalene Needle / Catheter Used: 100mm SonoPlex II Local Anesthetic Bolus (Indicate Dose Given): Bupivacaine 0.5% Dose:: 10 ml and Exparel Dose:: 10 ml Additives (Indicate Dose Given): None Ultrasound: Sterile probe cover and gel used Ultrasound Image Saved?: Yes Nerve Stimulator: Not Used Paresthesia: None Procedure Tolerated: No Complications and Patient tolerated well Procedure Outcome: Successful Performed By: Adriana Seals
--- NOTE | 2021-06-05 10:17 | W.ANESPOSTOP ---
Postoperative Evaluation Date, Time and Location Date Performed: 06/05/21 Time Performed: 10:18 Patient Location: PACU Vital Signs Most Recent Imported Vital Signs: Most Recent Vital Signs Temp Pulse Resp BP Pulse Ox 36.2 C L 102 H 18 112/65 96 06/05/21 10:00 06/05/21 10:00 06/05/21 10:00 06/05/21 10:00 06/05/21 10:00 Pain Score Most Recent Pain Score: Most Recent Pain Score Pain Level 0 06/05/21 10:00 Assessment Mental Status: Awake (Alert & Oriented to Patient Baseline) Airway and Respiratory Function: Patent airway with normal (patient baseline) respiratory exam Cardiovascular Function: Hemodynamically Stable Hydration Status: Adequately Hydrated Nausea & Vomiting: No Nausea or Vomiting Pain: Pt. Denies Any Pain Peripheral Nerve Block: Regional nerve block not resolved at time of post operative discharge Teaching Patient Teaching: Discussed Safe Use of Pain Medication Given Recent Anesthesia
== END 2021-06-05 11:25 | disposition home or self-care (01) ==
PROVIDERS: PCP Family Medicine; Visit Provider Student in an Organized Health Care Education/Training Program
PROC: (CPT 29827; principal; 2021-06-05 07:30)
PROC: (CPT 23430; 2021-06-05 07:30)
DX: M75.21 Bicipital tendinitis, right shoulder (principal); M19.011 Primary osteoarthritis, right shoulder; M75.51 Bursitis of right shoulder; M75.41 Impingement syndrome of right shoulder
CPT/HCPCS: 23430; 29823; 29826; 29824; J0690; J1100; J1885; J2001; J2250; J2370; J2405; J2704

== ENCOUNTER 2021-10-04 17:40 | Observation (INO) | payer OTHER, SELFPAY ==
[2021-10-04] VITALS (43 sets, daily range): BP systolic 122–161; BP diastolic 71–97; PULSE 78–121; RESP 12–31; TEMP 36.4–38; O2SAT 93–98
--- NOTE | 2021-10-04 18:00 | RT.EKG_ITS ---
APPROVED REPORT Exam: Resting ECG Reason for Exam: gi bleed Patient Location: E HR:84 bpm ECG Measurements Heart Rate 84 AXIS IA 176 P 66 QRSd 87 QRS 46 QT 396 T 26 QTc 468 Conclusion Sinus rhythm...normal P axis, V-rate 60- 99 Probable left atrial enlargement...P >50mS, <-0.10mV V1
--- NOTE | 2021-10-04 18:00 | DI.CT_ITS ---
Exam(s) CT ABDOMEN PELVIS W EXAM: CT ABDOMEN PELVIS W CLINICAL HISTORY: gi bleed, abdominal pain. TECHNIQUE: Imaging Protocol: Axial computed tomography images with coronal and sagittal reformatted images were created and reviewed CONTRAST MATERIAL: Intravenous: Omnipaque 350 Contrast volume:91 ml Oral: no CT CT CHEST PE CTA from 12/23/2020 FINDINGS: ABDOMEN: Lung Bases: Normal where visualized. Liver: Normal density. No measurable mass. Gallbladder and biliary tract: No radiodense calculus or dilation. Pancreas: Normal density, no abnormal calcifications or inflammatory process. Spleen: Normal. Kidneys: Normal size, contour. Anatomic variant of anteriorly oriented renal pelves. Prominence of both renal pelves, symmetric. No radiodense stones or obstructive uropathy. No masses seen. Adrenal glands: No masses seen. Abdominal Aorta: Abdominal portion non-dilated. PELVIS: Bladder: No gross wall thickening. No calculi.No focal mass. Bowel: Abnormal diffuse wall thickening of the descending and sigmoid colon, consistent with colitis. Diverticulosis is also noted. This area the colon is collapsed. No pneumatosis. No obstruction.. Appendix normal. Peritoneal cavity: No ascites, collection or mesenteric inflammatory response. No free air. Bones: Within normal limits for age. Reproductive organs: Simple right ovarian cyst, similar to previous. Lymph nodes: Unremarkable. Impression: Colitis of the descending and sigmoid colon. Prominent bilateral extrarenal pelves could be secondar y to hydration status. No findings to suggest obstruction. RADIATION DOSE DELIVERED: 840.95mGy.cm Total DLP DATA REPOSITORY: All CT scans at this facility are submitted to the National Radiology Data Registry (NRDR) Dose Index Registry (DIR) with the [employer] (A[employer]). RADIATION OPTIMIZATION: All CT scans at this facility use at least one of these dose optimization te chniques: automated exposure control; mA and/or kV adjustment per patient size (includes targeted exa ms where dose is matched to clinical indication); or iterative reconstruction.
[2021-10-04 18:30] LABS: Abs Immature Grans 0.03 10^3/uL (0.0-0.06); Absolute Basophil Count 0.03 10^3/uL (0.0-0.2); Absolute Lymphocyte Count 2.05 10^3/uL (1.2-3.4); Absolute Monocyte Count 0.97 10^3/uL (0.1-0.8); Absolute Neutrophil Count 6.02 10^3/uL (1.2-6.7); Basophils % 0.3; Eosinophils % 1.1; HCT 36.6 % (36.0-46.0); HGB 11.9 g/dL (11.2-15.7); Immature Grans % 0.3; Lymphocytes % 22.3; MCH 29.3 pg (27.0-33.0); MCHC 32.5 % (32.0-36.0); MCV 90.1 fL (80-95); MPV 10.4 fL (8.0-11.0); Monocytes % 10.5; Neutrophils % 65.5; Nucleated RBC 0 %; Platelet Count 311 10^3/uL (130-400); RBC 4.06 10^6/uL (3.93-5.22); RDW 12.9 % (11.7-14.6); RDW-SD 42.5 fL
[2021-10-04 18:43] LABS: ALT 25 U/L (14-59); AST 17 U/L (15-37); Albumin 4.3 g/dL (3.4-5.0); Alkaline Phosphatase 84 U/L (46-116); Anion Gap 9.4 mmol/L (3-11); BUN 18 mg/dL (7-18); Bilirubin, Total 0.4 mg/dL (0.2-1.0); CO2 26.6 mmol/L (21.0-32.0); CREATININE 0.9 mg/dL (0.55-1.02); Calcium 9.2 mg/dL (8.5-10.1); Chloride 105 mmol/L (98-107); Glucose 106 mg/dL (74-106); Magnesium 2.1 mg/dL (1.8-2.4); Potassium 3.1 mmol/L (3.5-5.1); Sodium 141 mmol/L (136-145); Total Protein 8.2 g/dL (6.4-8.2)
[2021-10-04] MEDS: Normal Saline 1,000 ML 1000 ML IV ×2 (18:45→20:37)
[2021-10-04 19:09] LABS: Bilirubin Negative (Negative); Blood Small (Negative); Clarity Clear (Clear); Glucose Negative (Negative); Ketones Negative (Negative); Leukocyte Esterase Negative (Negative); Nitrite Negative (Negative); Urobilinogen 0.2 EU/dL (Up TO 0.2)
[2021-10-04] MEDS: ACETAMINOPHEN 1,000 MG/100 ML BTL 400 MG IVPB (19:14)
[2021-10-04 19:16] LABS: Bacteria Negative HPF (Negative); C & S Indicated? No; Casts Negative LPF (Negative); Crystals Negative HPF (Negative); Epithelial Cells Few HPF (Negative); Mucus Negative (Negative)
[2021-10-04] MEDS: Omnipaque 350 MG/ML 100 ML BTL IJ (20:16)
[2021-10-04] MEDS: Normal Saline Flush 10 ML SYR IVP (20:23)
--- NOTE | 2021-10-04 21:29 | DI.VRAD_ITS ---
PROCEDURE INFORMATION: Exam: CT Abdomen And Pelvis With Contrast Exam date and time: 10/04/2021 6:07 PM Age: 61 years old Clinical indication: Localized; Lower; Prior surgery; Surgery date: 6+ months; Surgery type: Tubal ligation and endometrial ablation; Patient HX: Gi bleed, abdominal pain TECHNIQUE: Imaging protocol: Computed tomography of the abdomen and pelvis with contrast. Radiation optimization: All CT scans at this facility use at least one of these dose optimization techniques: automated exposure control; mA and/or kV adjustment per patient size (includes targeted exams where dose is matched to clinical indication); or iterative reconstruction. Contrast material: OMNIPAQUE 350; Contrast volume: 91 ml; Contrast route: INTRAVENOUS (IV); COMPARISON: CT Abdomen^ROUTINE ABDOMEN PELVIS WITH CONTRAST (Adult) 07/11/2018 9:24 AM FINDINGS: Lungs: Minor left lower lobe scarring. Liver: Unchanged minor nodularity of liver margin and mildly prominent fissures, may indicate hepatic fibrosis. Normal attenuation and no concerning focal lesion. Gallbladder and bile ducts: Normal. No calcified stones. No ductal dilation. Pancreas: Normal. No ductal dilation. Spleen: The spleen is unremarkable. Adrenal glands: The adrenal glands are unremarkable. Kidneys and ureters: Symmetric nephrograms. No nephrolithiasis. Anteriorly oriented renal pelves, normal variant. Mild bilateral renal pelvic fullness with tapering at ureteropelvic junctions and no adjacent stranding is increased compared with July 2018, possibly reflecting hydration status and unlikely to represent obstruction. Stomach and bowel: Mild to moderate diffuse left hemicolonic wall thickening, mucosal hyperenhancement and mild pericolonic stranding from splenic flexure to rectum, likely infectious/inflammatory colitis. Minimal sigmoid diverticulosis; bowel wall thickening is disproportionate relative to pericolonic stranding, which is atypical for diverticulitis. No other abnormal bowel wall thickening. No bowel obstruction Appendix: No evidence of appendicitis. Intraperitoneal space: Unremarkable. No free air. No significant fluid collection. Vasculature: The aorta is unremarkable. Patent well opacified mesenteric vasculature. Lymph nodes: Unremarkable. No enlarged lymph nodes. Urinary bladder: Unremarkable as visualized. Reproductive: A 2.5 cm right ovarian cyst previously measured 1.8 cm. No further imaging is recommended. (Reference: Cheek) Bones/joints: Unremarkable. No acute fracture. Soft tissues: Unremarkable. IMPRESSION: 1. Thick-walled left hemicolon with pericolonic stranding, likely infectious/inflammatory colitis. 2. Mild bilateral renal pelvic fullness with tapering at ureteropelvic junctions and no adjacent stranding has increased compared with July 2018, possibly reflecting hydration status and unlikely to represent obstruction. If warranted, correlate with urinalysis and consider renal ultrasound including postvoid images. REFERENCES: Ham et al. Management of Incidental Adnexal Findings on CT and MRI: A White Paper of the ACR Incidental Findings Committee, J Am Barbara Radiol. 2019;17(2):248-254. Dictated and Authenticated by: Estela Rivas MD. Ordering:NOEL Ascencio MD
--- NOTE | 2021-10-04 21:57 | ED.GENADUL_ITS ---
Discharge Plan Disposition Patient Disposition: [facility] INPATIENT Condition: Serious Discharge Details Chief Complaint: GI Bleed Clinical Impression: Hematochezia Primary Care Provider: Nikko Coffman ED Provider: Silva Willis Home Meds and New Rx's Prescriptions: No Action acetaminophen 500 mg capsule 500 mg PO QID PRNRF: 0 Adult Probiotic 3 billion cell capsule 3,000 mmu cells PO DAILY RF: 0 fluticasone propionate [Flonase Allergy Relief] 9.9 ML spray,suspension 9.9 ml NS 2 SPRAYS QD RF: 0 amlodipine [Norvasc] 5 MG tablet 5 mg PO HS RF: 0 magnesium oxide 400 mg magnesium Tablet 400 mg PO DAILY RF: 0 famotidine 40 mg tablet 40 mg PO HS RF: 0 Metamucil Packet 1 packet PO DAILY RF: 0 Medical Decision Making Patient appears well, she is hemodynamically stable Her CT shows, evidence of diffuse colitis Given her persistent bleeding, diffuse colitis on CT scan, I think she warrants admission to the hospital at least for observation I will treat with IV Cipro and Flagyl as she has penicillin allergy Her QTC is not prolonged Her urinalysis does not show acute abnormality, virtual radiology report but patient have slight worsening to the renal pelvis bilaterally which is not new. Patient does not present with any urinary complaints at this time She is pending stool cultures Medical Records Medical records reviewed: Yes I reviewed the patient's medical records. Lab Data Lab results reviewed: Yes I reviewed the patient's lab results. HPI General Mode of arrival: ambulatory . Date/Time Provider Initiated Documentation: 10/04/21 18:04 . Limitations to Documentation: no limitations . Information obtained by: patient . HPI Narrative: Pleasant 61-year-old lady with history of hypertension presents with report of rectal bleeding. She s tates that for the past 24 hours she has cramping pain in her abdomen. She states that this is a recurrent issue for her except that she started with bloody stool approximately 12 hours ago and now she is experiencing blood in the absence of notable stool. She denies any weakness or dizziness. She denies any chest pain or shortness of breath. She states this is been going on for an extended period of time but has never presented to this severity. She did have a colonoscopy at [facility] in August of this year. She was told that there was no acute abnormality. She denies any prior history of inflammatory bowel disease. She denies any fever or chills. She denies any recent antibiotic use or exotic travel. She denies any new urinary complaints and states she have urinary frequency at baseline. She describes the blood in her stool is bright red. She denies any vomiting today but did have an episode of nausea with one episode of vomiting yesterday. She denies any blood in her vomitus. She denies any regular nonsteroidal use, anticoagulation. Related Data Home Medications Medication Instructions Recorded Confirmed amlodipine [Norvasc] 5 mg PO HS 11/19/12 10/04/21 fluticasone propionate [Flonase 9.9 ml NS 2 SPRAYS QD 02/04/15 10/04/21 Allergy Relief] lactobacillus combination no.8 3 3,000 mmu cells PO DAILY 10/02/19 10/04/21 billion cell capsule acetaminophen 500 mg capsule 500 mg PO QID PRN 12/26/19 10/04/21 magnesium oxide 400 mg PO DAILY 12/23/20 10/04/21 famotidine 40 mg PO HS 06/02/21 10/04/21 psyllium [Metamucil] 1 packet PO DAILY 10/04/21 10/04/21 Allergies Allergy/AdvReac Type Severity Reaction Status Date / Time clindamycin Allergy Intermediate Skin Rash Verified 10/04/21 17:55 Estrogens Allergy Intermediate Skin Rash Verified 10/04/21 17:55 Penicillins Allergy Intermediate Skin Rash Verified 10/04/21 17:55 gabapentin Allergy Psychosis Verified 10/04/21 17:55 acetaminophen [From Vicodin] AdvReac Intermediate Verified 10/04/21 17:55 hydrocodone [From Vicodin] AdvReac Intermediate Verified 10/04/21 17:55 General Stated Complaint: GI Bleed DREW: 2 Review of Systems All systems reviewed & are unremarkable except as noted in HPI and below PFSH All Active Problems Hematochezia (Acute) Atrophic vaginitis (Acute 12/31/13) Carpal tunnel syndrome on both sides (Acute 02/05/15) Chronic rhinitis (Acute 08/19/16) Deviated nasal septum (Acute 03/25/16) Dyspareunia (Acute 05/17/17) Hypertrophy of inferior nasal turbinate (Acute 03/25/16) Mass of face (Acute 09/01/17) Mass of left ear auricle (Acute 07/21/17) Nasal congestion (Acute 03/25/16) Vaginal atrophy (Acute 01/01/15) Vitiligo (Acute 01/01/13) Contusion of left foot, initial encounter (Acute ~10/2019) Adhesive capsulitis of left shoulder (Acute) Scapular dyskinesis (Acute) Strain of cervical portion of left trapezius muscle (Acute) Tendonitis of long head of biceps brachii of right shoulder (Acute) Blood-tinged sputum (Acute) Post-nasal drip (Acute) Arthritis of right acromioclavicular joint (Acute) Bursitis of right shoulder (Acute) Impingement syndrome of right shoulder (Acute) Labral tear of hip joint (Acute) Trochanteric bursitis of right hip (Acute) Iliotibial band syndrome of right side (Acute) Arthritis of knee, right (Acute) Epigastric pain (Acute) Acid reflux (Chronic) Fatty liver (Acute) Status post arthroscopy of left shoulder (Acute 10/26/19) With biceps tenodesis Active Problem List (Updated 06/05/21 @ 06:25 by Rafaela Valero RN) Atrophic vaginitis (Acute 12/31/13) Carpal tunnel syndrome on both sides (Acute 02/05/15) Chronic rhinitis (Acute 08/19/16) Deviated nasal septum (Acute 03/25/16) Dyspareunia (Acute 05/17/17) Hypertrophy of inferior nasal turbinate (Acute 03/25/16) Mass of face (Acute 09/01/17) Mass of left ear auricle (Acute 07/21/17) Nasal congestion (Acute 03/25/16) Vaginal atrophy (Acute 01/01/15) Vitiligo (Acute 01/01/13) Contusion of left foot, initial encounter (Acute ~10/2019) Adhesive capsulitis of left shoulder (Acute) Scapular dyskinesis (Acute) Strain of cervical portion of left trapezius muscle (Acute) Tendonitis of long head of biceps brachii of right shoulder (Acute) Blood-tinged sputum (Acute) Post-nasal drip (Acute) Arthritis of right acromioclavicular joint (Acute) Bursitis of right shoulder (Acute) Impingement syndrome of right shoulder (Acute) Labral tear of hip joint (Acute) Trochanteric bursitis of right hip (Acute) Iliotibial band syndrome of right side (Acute) Arthritis of knee, right (Acute) Epigastric pain (Acute) Acid reflux (Chronic) Fatty liver (Acute) Status post arthroscopy of left shoulder (Acute 10/26/19) Medical History Anxiety Arthritis of left acromioclavicular joint Depression GERD History of excessive cerumen Impingement syndrome of left shoulder Migraine Seasonal allergic rhinitis Superior labrum vgmigpla-ro-drlytptgt (SLAP) tear of left shoulder Tendinitis of long head of biceps brachii of left shoulder Vitiligo Surgical History Colon/endoscopy 07/2013 repeated negative endoscopy Diverticulosis colon done at [facility] Endometrial Ablation 2009 History of surgical removal of ganglion cyst x2, R foot, L hand Ligation of fallopian tube 1983 R trochanteric bursectomy with IT band tenotomy 07/2012 Sinus cyst removed 2007 Family History Other Heart disease Hyperlipidemia Personal history of malignant neoplasm Social History Smoking/Tobacco Use Status: Never Smoking risk assessment performed?: Yes Alcohol Intake: current Alcohol Intake frequency: holidays/special occasions only Alcohol type: beer Drug use: Never Substance use type: does not use Current gender identity: female Do you feel safe at home: Yes Do you feel safe in your relationship?: Yes Exam Const General: comfortable and no acute distress Eyes Pupils: PERRL Resp Effort & Inspection: normal respiratory effort Cardio Rate: regular rate Rhythm: regular rhythm GI Other: Diffuse mild abdominal tenderness, no rebound or guarding Skin General skin exam: no rashes or lesions noted Neuro General: patient alert and patient oriented x3 Course Vital Signs Vital signs: Vital Signs Temperature 37.2 C 10/04/21 17:46 Pulse 80 10/04/21 17:46 Respiratory Rate 12 10/04/21 17:46 Blood Pressure 148/90 H 10/04/21 17:46 Pulse Oximetry 98 10/04/21 17:46 Temperature 36.4 C L 10/04/21 21:33 Temperature Source Oral 10/04/21 21:33 Pulse 87 10/04/21 21:33 Pulse Rhythm Regular 10/04/21 19:04 Pulse Strength Normal 10/04/21 19:04 Pulse 87 10/04/21 21:33 Respiratory Rate 15 10/04/21 21:33 Respiratory Effort Non-Labored 10/04/21 20:37 Respiratory Depth Normal 10/04/21 20:37 Respiratory Pattern Normal 10/04/21 20:37 Blood Pressure 125/75 10/04/21 21:33 Blood Pressure Mean 86 10/04/21 21:33 Blood Pressure Position Supine 10/04/21 19:04 Pulse Oximetry 96 10/04/21 21:33 Oxygen Delivery Method Room Air 10/04/21 20:37 Oxygen Flow Rate 0 10/04/21 20:37 Pain Level 5 10/04/21 19:14 Comment 10/04/21 17:46 Lab/Test Results Lab/Test Results: Laboratory Tests Range/Units 10/04/21 10/04/21 10/04/21 17:00 18:20 18:20 WBC (4.4-10.8) 10^3/uL RBC (3.93-5.22) 10^6/uL Hgb (11.2-15.7) g/dL Hct (36.0-46.0) % MCV (80-95) fL MCH (27.0-33.0) pg MCHC (32.0-36.0) % RDW (11.7-14.6) % Plt Count (130-400) 10^3/uL MPV (8.0-11.0) fL Immature Gran % Neutrophils % Lymphocytes % Monocytes % Eosinophils % Basophils % Nucleated RBC % % Absolute Neutrophils (1.2-6.7) 10^3/uL Absolute Lymphocytes (1.2-3.4) 10^3/uL Absolute Monocytes (0.1-0.8) 10^3/uL Absolute Eosinophils (0.0-0.7) 10^3/uL Absolute Basophils (0.0-0.2) 10^3/uL Sodium (136-145) mmol/L 141 Potassium (3.5-5.1) mmol/L 3.1 L Chloride (98-107) mmol/L 105 Carbon Dioxide (21.0-32.0) mmol/L 26.6 Anion Gap (3-11) mmol/L 9.4 BUN (7-18) mg/dL 18 Creatinine (0.55-1.02) mg/dL 0.9 Estimated GFR/1.73 m2 (mL/min/1.73m2) >= 60.00 Glucose (74-106) mg/dL 106 Calcium (8.5-10.1) mg/dL 9.2 Magnesium (1.8-2.4) mg/dL 2.1 Total Bilirubin (0.2-1.0) mg/dL 0.4 AST (15-37) U/L 17 ALT (14-59) U/L 25 Alkaline Phosphatase (46-116) U/L 84 Total Protein (6.4-8.2) g/dL 8.2 Albumin (3.4-5.0) g/dL 4.3 Urine Color (Yellow) Yellow Urine Clarity (Clear) Clear Urine pH (5-8) 7.0 Ur Specific [place] (1.005-1.025) 1.020 Urine Protein (Negative) mg/dL Negative Urine Ketones (Negative) mg/dL Negative Urine Blood (Negative) Small H Urine Nitrite (Negative) Negative Urine Bilirubin (Negative) Negative Urine Urobilinogen (Up TO 0.2) EU/dL 0.2 Ur Leukocyte Esterase (Negative) Negative Urine RBC (0-2) HPF 3-5 H Urine WBC (0-5) HPF 3-5 Ur Epithelial Cells (Negative) HPF Few Urine Crystals (Negative) HPF Negative Urine Bacteria (Negative) HPF Negative Urine Casts (Negative) LPF Negative Urine Mucus (Negative) Negative Ur Culture Indicated? No Urine Glucose (Negative) mg/dL Negative Patient ABO/Rh A Positive Antibody Screen NEGATIVE Range/Units 10/04/21 18:20 WBC (4.4-10.8) 10^3/uL 9.20 RBC (3.93-5.22) 10^6/uL 4.06 Hgb (11.2-15.7) g/dL 11.9 Hct (36.0-46.0) % 36.6 MCV (80-95) fL 90.1 MCH (27.0-33.0) pg 29.3 MCHC (32.0-36.0) % 32.5 RDW (11.7-14.6) % 12.9 Plt Count (130-400) 10^3/uL 311 MPV (8.0-11.0) fL 10.4 Immature Gran % 0.3 Neutrophils % 65.5 Lymphocytes % 22.3 Monocytes % 10.5 Eosinophils % 1.1 Basophils % 0.3 Nucleated RBC % % 0 Absolute Neutrophils (1.2-6.7) 10^3/uL 6.02 Absolute Lymphocytes (1.2-3.4) 10^3/uL 2.05 Absolute Monocytes (0.1-0.8) 10^3/uL 0.97 H Absolute Eosinophils (0.0-0.7) 10^3/uL 0.10 Absolute Basophils (0.0-0.2) 10^3/uL 0.03 Sodium (136-145) mmol/L Potassium (3.5-5.1) mmol/L Chloride (98-107) mmol/L Carbon Dioxide (21.0-32.0) mmol/L Anion Gap (3-11) mmol/L BUN (7-18) mg/dL Creatinine (0.55-1.02) mg/dL Estimated GFR/1.73 m2 (mL/min/1.73m2) Glucose (74-106) mg/dL Calcium (8.5-10.1) mg/dL Magnesium (1.8-2.4) mg/dL Total Bilirubin (0.2-1.0) mg/dL AST (15-37) U/L ALT (14-59) U/L Alkaline Phosphatase (46-116) U/L Total Protein (6.4-8.2) g/dL Albumin (3.4-5.0) g/dL Urine Color (Yellow) Urine Clarity (Clear) Urine pH (5-8) Ur Specific [place] (1.005-1.025) Urine Protein (Negative) mg/dL Urine Ketones (Negative) mg/dL Urine Blood (Negative) Urine Nitrite (Negative) Urine Bilirubin (Negative) Urine Urobilinogen (Up TO 0.2) EU/dL Ur Leukocyte Esterase (Negative) Urine RBC (0-2) HPF Urine WBC (0-5) HPF Ur Epithelial Cells (Negative) HPF Urine Crystals (Negative) HPF Urine Bacteria (Negative) HPF Urine Casts (Negative) LPF Urine Mucus (Negative) Ur Culture Indicated? Urine Glucose (Negative) mg/dL Patient ABO/Rh Antibody Screen PAWSS Have you Been Recently Intoxicated or Drunk Within the Last 30 days?: No Have you Ever Experienced Previous Episodes of Alcohol Withdrawal?: No Have you ever Experienced Withdrawal Seizures?: No Have you ever Experienced Delirium Tremens(DT)s?: No Have you ever undergone Alcohol Rehabilitation Treatment (i.e, inpt ot outpatient treatment programs)?: No Have you ever Experienced Blackouts?: No Have you ever Combined Alcohol with other Downers within the last 90 days?: No Have you ever Combined Alcohol with any other Substance of Abuse during the last 90 days?: No Positive Blood Alcohol level on Presentation? [PCS.BAL]: No Evidence of Increased Autonomic Activity (i.e. HR>120, tremor, sweating, agitation, nausea)?: No Result: 0
--- NOTE | 2021-10-04 22:03 | HPE_ITS ---
Date of service: 10/04/21 Time of Service: 22:04 Assessment and Plan Assessment and plan (1) Diarrhea: Status: Acute Assessment and plan: Diarrheal illness, now manifesting with hematochezia, with CT findings suggestive of inflammatory or infectious process. Hemodynamics stable.I would favor treating as infectious, will continue Cipro and Flagyl. Will check C diff, in addition to bacterial pathogens. Will leave NPO for now. History of Present Illness History of Present Illness Chief Complaint: diarrhea Narrative: 61 female with h/o intermittent diarrhea associated with bloody stools. Colonoscopy 08/25 showed few polyps, mild diverticulosis, few external hemorrhoids. Here tonight with one day of loose stool, which has since evoloved into simple hemtochezia, occuring approx hourly. Does have some cramping prior to evacuation, otherwise no pain. Here in ER w/u of note for temp to 38, no leukocytosis, Hct [address] abdomen showing scattered sigmoid divertiuli, thickening left hemicolon with pericolonic stranding. pateint given Cipro and Flagyl. I was asked to evaluate for admission. Patient notes that this episode has some similarities to prior spells, but is different in that she has never had this degree of persistence of the bleeding. Also has not previously had a fever. Review of Systems All systems reviewed & are unremarkable except as noted in HPI and below PFSH All Active Problems Diarrhea (Acute) Hematochezia (Acute) Atrophic vaginitis (Acute 12/31/13) Carpal tunnel syndrome on both sides (Acute 02/05/15) Chronic rhinitis (Acute 08/19/16) Deviated nasal septum (Acute 03/25/16) Dyspareunia (Acute 05/17/17) Hypertrophy of inferior nasal turbinate (Acute 03/25/16) Mass of face (Acute 09/01/17) Mass of left ear auricle (Acute 07/21/17) Nasal congestion (Acute 03/25/16) Vaginal atrophy (Acute 01/01/15) Vitiligo (Acute 01/01/13) Contusion of left foot, initial encounter (Acute ~10/2019) Adhesive capsulitis of left shoulder (Acute) Scapular dyskinesis (Acute) Strain of cervical portion of left trapezius muscle (Acute) Tendonitis of long head of biceps brachii of right shoulder (Acute) Blood-tinged sputum (Acute) Post-nasal drip (Acute) Arthritis of right acromioclavicular joint (Acute) Bursitis of right shoulder (Acute) Impingement syndrome of right shoulder (Acute) Labral tear of hip joint (Acute) Trochanteric bursitis of right hip (Acute) Iliotibial band syndrome of right side (Acute) Arthritis of knee, right (Acute) Epigastric pain (Acute) Acid reflux (Chronic) Fatty liver (Acute) Status post arthroscopy of left shoulder (Acute 10/26/19) With biceps tenodesis Medical History Anxiety Arthritis of left acromioclavicular joint Depression GERD History of excessive cerumen Impingement syndrome of left shoulder Migraine Seasonal allergic rhinitis Superior labrum tvdkycbs-[id number]-chaixxrtb (SLAP) tear of left shoulder Tendinitis of long head of biceps brachii of left shoulder Vitiligo Surgical History Colon/endoscopy 07/2013 repeated negative endoscopy Diverticulosis colon done at [facility] Endometrial Ablation 2009 History of surgical removal of ganglion cyst x2, R foot, L hand Ligation of fallopian tube 1984 R trochanteric bursectomy with IT band tenotomy 07/2012 Sinus cyst removed 2007 Family History Other Heart disease Hyperlipidemia Personal history of malignant neoplasm Social History Smoking/Tobacco Use Status: Never Smoking risk assessment performed?: Yes Alcohol Intake: current Alcohol Intake frequency: holidays/special occasions only Alcohol type: beer Drug use: Never Substance use type: does not use Current gender identity: female Do you feel safe at home: Yes Do you feel safe in your relationship?: Yes Meds Allergies and Home Medications Allergies Allergy/AdvReac Type Severity Reaction Status Date / Time clindamycin Allergy Intermediate Skin Rash Verified 10/04/21 17:55 Estrogens Allergy Intermediate Skin Rash Verified 10/04/21 17:55 Penicillins Allergy Intermediate Skin Rash Verified 10/04/21 17:55 gabapentin Allergy Psychosis Verified 10/04/21 17:55 acetaminophen [From Vicodin] AdvReac Intermediate Verified 10/04/21 17:55 hydrocodone [From Vicodin] AdvReac Intermediate Verified 10/04/21 17:55 Home Medications Medication Instructions Recorded Confirmed Type amlodipine [Norvasc] 5 mg PO HS 11/19/12 10/04/21 History fluticasone propionate [Flonase 9.9 ml NS 2 SPRAYS QD 02/04/15 10/04/21 History Allergy Relief] lactobacillus combination no.8 3 3,000 mmu cells PO DAILY 10/02/19 10/04/21 History billion cell capsule acetaminophen 500 mg capsule 500 mg PO QID PRN 12/26/19 10/04/21 History magnesium oxide 400 mg PO DAILY 12/23/20 10/04/21 History famotidine 40 mg PO HS 06/02/21 10/04/21 History psyllium [Metamucil] 1 packet PO DAILY 10/04/21 10/04/21 History Exam Narrative Exam Narrative: 125/75, 87, 36.4, 15, 96% RA. HEENT atraumatic; neck supple; lungs clear; heart RRR; abdomen soft and NT; extremities w/o edema; neuro Ox3, nonfocal Results Labs Result diagrams: 10/04/21 18:20 10/04/21 18:20 Labs: Laboratory Results - last 24 hr 10/04/21 10/04/21 10/04/21 17:00 18:20 18:20 WBC RBC Hgb Hct MCV MCH MCHC RDW Plt Count MPV Immature Gran % Neutrophils % Lymphocytes % Monocytes % Eosinophils % Basophils % Nucleated RBC % Absolute Neutrophils Absolute Lymphocytes Absolute Monocytes Absolute Eosinophils Absolute Basophils Sodium 141 Potassium 3.1 L Chloride 105 Carbon Dioxide 26.6 Anion Gap 9.4 BUN 18 Creatinine 0.9 Estimated GFR/1.73 m2 >= 60.00 Glucose 106 Calcium 9.2 Magnesium 2.1 Total Bilirubin 0.4 AST 17 ALT 25 Alkaline Phosphatase 84 Total Protein 8.2 Albumin 4.3 Urine Color Yellow Urine Clarity Clear Urine pH 7.0 Ur Specific [place] 1.020 Urine Protein Negative Urine Ketones Negative Urine Blood Small H Urine Nitrite Negative Urine Bilirubin Negative Urine Urobilinogen 0.2 Ur Leukocyte Esterase Negative Urine RBC 3-5 H Urine WBC 3-5 Ur Epithelial Cells Few Urine Crystals Negative Urine Bacteria Negative Urine Casts Negative Urine Mucus Negative Ur Culture Indicated? No Urine Glucose Negative Patient ABO/Rh A Positive Antibody Screen NEGATIVE 10/04/21 18:20 WBC 9.20 RBC 4.06 Hgb 11.9 Hct 36.6 MCV 90.1 MCH 29.3 MCHC 32.5 RDW 12.9 Plt Count 311 MPV 10.4 Immature Gran % 0.3 Neutrophils % 65.5 Lymphocytes % 22.3 Monocytes % 10.5 Eosinophils % 1.1 Basophils % 0.3 Nucleated RBC % 0 Absolute Neutrophils 6.02 Absolute Lymphocytes 2.05 Absolute Monocytes 0.97 H Absolute Eosinophils 0.10 Absolute Basophils 0.03 Sodium Potassium Chloride Carbon Dioxide Anion Gap BUN Creatinine Estimated GFR/1.73 m2 Glucose Calcium Magnesium Total Bilirubin AST ALT Alkaline Phosphatase Total Protein Albumin Urine Color Urine Clarity Urine pH Ur Specific [place] Urine Protein Urine Ketones Urine Blood Urine Nitrite Urine Bilirubin Urine Urobilinogen Ur Leukocyte Esterase Urine RBC Urine WBC Ur Epithelial Cells Urine Crystals Urine Bacteria Urine Casts Urine Mucus Ur Culture Indicated? Urine Glucose Patient ABO/Rh Antibody Screen Last Vital Signs Temp 36.4 C L 10/04/21 21:33 Pulse 87 10/04/21 21:33 Resp 15 10/04/21 21:33 BP 125/75 10/04/21 21:33 Pulse Ox 96 10/04/21 21:33 PAWSS Have you Been Recently Intoxicated or Drunk Within the Last 30 days?: No Have you Ever Experienced Previous Episodes of Alcohol Withdrawal?: No Have you ever Experienced Withdrawal Seizures?: No Have you ever Experienced Delirium Tremens(DT)s?: No Have you ever undergone Alcohol Rehabilitation Treatment (i.e, inpt ot outpatient treatment programs)?: No Have you ever Experienced Blackouts?: No Have you ever Combined Alcohol with other Downers within the last 90 days?: No Have you ever Combined Alcohol with any other Substance of Abuse during the last 90 days?: No Positive Blood Alcohol level on Presentation? [PCS.BAL]: No Evidence of Increased Autonomic Activity (i.e. HR>120, tremor, sweating, agitation, nausea)?: No Result: 0
[2021-10-04] MEDS: CIPROFLOXACIN 400 MG/200 ML BAG 200 MG IVPB (22:30)
[2021-10-04] MEDS: metroNIDAZOLE 500 MG/100 ML BAG 100 MG IVPB (22:30)
[2021-10-04 23:25] LABS: Source Nasal/Nares
[2021-10-05 00:07] VITALS: BP 151/81; PULSE 85; RESP 18; TEMP 37.4; O2SAT 96
[2021-10-05 00:14] LABS: C Diff PCR Negative (Negative)
[2021-10-05] MEDS: Lactated Ringers 1,000 ML 150 ML IV ×5 (01:26→22:26)
[2021-10-05] MEDS: Normal Saline Flush 10 ML SYR IVP ×3 (01:27→06:48)
[2021-10-05] MEDS: ACETAMINOPHEN 1,000 MG/100 ML BTL 400 MG IVPB (03:31)
[2021-10-05] MEDS: metroNIDAZOLE 500 MG/100 ML BAG 100 MG IVPB (06:47)
[2021-10-05 07:14] LABS: HGB 11.4 g/dL (11.2-15.7); MCH 28.9 pg (27.0-33.0); MCHC 31.7 % (32.0-36.0); MCV 91.1 fL (80-95); MPV 10.6 fL (8.0-11.0); Platelet Count 288 10^3/uL (130-400); RBC 3.95 10^6/uL (3.93-5.22); RDW-SD 42.5 fL; WBC 6.86 10^3/uL (4.4-10.8)
[2021-10-05 07:30] LABS: Anion Gap 11.2 mmol/L (3-11); BUN 7 mg/dL (7-18); CO2 25.8 mmol/L (21.0-32.0); CREATININE 0.7 mg/dL (0.55-1.02); Calcium 8.5 mg/dL (8.5-10.1); Chloride 105 mmol/L (98-107); Glucose 103 mg/dL (74-106); Sodium 142 mmol/L (136-145)
[2021-10-05 07:39] LABS: Potassium 2.9 mmol/L (3.5-5.1)
[2021-10-05 07:40] VITALS: BP 130/78; PULSE 83; RESP 18; TEMP 37; O2SAT 96
[2021-10-05] MEDS: POTASSIUM CHLORIDE 10 MEQ/100 ML BAG 100 MEQ IVPB ×4 (08:28→12:26)
[2021-10-05] MEDS: Potassium Chloride 20 MEQ TABCR 40 MEQ PO (08:28)
[2021-10-05 09:09] LABS: C-Reactive Protein 0.73 mg/dL (0.0-0.3)
[2021-10-05 09:12] LABS: Procalcitonin < 0.1 ng/mL
--- NOTE | 2021-10-05 10:43 | PDOC.CMIN ---
- If Service Date Differs Date of service: 10/05/21 Time of Service: 10:43 Care Management Initial Assess REASON FOR HOSPITALIZATION:: Diarrhea, Hematochezia PAST MEDICAL HISTORY/PAST SURGICAL HISTORY:: 61 female with h/o intermittent diarrhea associated with bloody stools. Colonoscopy 08/25 showed few polyps, mild diverticulosis, few external hemorrhoids. Medical History . Anxiety. Arthritis of left acromioclavicular joint. Depression. GERD. History of excessive cerumen. Impingement syndrome of left shoulder. Migraine. Seasonal allergic rhinitis. Superior labrum qdyzzlxn-ox-diqburpya (SLAP) tear of left shoulder. Tendinitis of long head of biceps brachii of left shoulder. Vitiligo. Surgical History . Colon/endoscopy. 2008. 07/2013 repeated negative endoscopy Diverticulosis colon done at [facility]. Endometrial Ablation. 2008. History of surgical removal of ganglion cyst. x2, R foot, L hand. Ligation of fallopian tube. 1983. R trochanteric bursectomy. with IT band tenotomy 07/2012. Sinus cyst removed. 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 Independent at baseline. Resides locally with , [place]. CURRENT FUNCTIONAL STATUS:: On PAWSS protocol for prediction of alcohol withdrawal. Up independently remains NPO, on IV ABX and IVF at this time. Has patient been provided with info about the portal/API?: Yes Did the patient sign up for the portal?: Yes (Previously) CODE STATUS:: Full Code INSURANCE COVERAGE / FINANCIAL ISSUES:: [employer]. [employer] CURRENT HOME/COMMUNITY SERVICES/EQUIPMENT:: None, currently. PRIMARY CARE PHYSICIAN:: Dr. Coffman POTENTIAL DISCHARGE NEEDS:: Follow up appointments. PATIENT/FAMILY EDUCATION NEEDS:: Review discharge instructions, discuss Ask Me Three. ANTICIPATED BARRIERS TO DISCHARGE:: Possible ETOH withdrawal, PAWSS assessment utilized at this time. TRANSPORTATION:: Via private vehicle with family. PLAN:: Per MD: Diarrheal illness, now manifesting with hematochezia, with CT findings suggestive of inflammatory or infectious process. Hemodynamics stable. Continue Cipro and Flagyl. Will check C diff, in addition to bacterial pathogens. NPO for now. CM continues to follow.
--- NOTE | 2021-10-05 11:32 | PHA.REVIEW ---
Pharmacy Admission Review - Admission Clinical Review (Last Reviewed 10/04/21 @ 22:10 by Ted Espinoza MD) Diarrhea (Acute) Hematochezia (Acute) clindamycin Allergy (Intermediate, Verified 10/04/21 17:55) Skin Rash Estrogens Allergy (Intermediate, Verified 10/04/21 17:55) Skin Rash Penicillins Allergy (Intermediate, Verified 10/04/21 17:55) Skin Rash gabapentin Allergy (Verified 10/04/21 17:55) Psychosis acetaminophen [From Vicodin] Adverse Reaction (Intermediate, Verified 10/04/21 17:55) hydrocodone [From Vicodin] Adverse Reaction (Intermediate, Verified 10/04/21 17:55) Resuscitation Status Full Code Height 5 ft 5 in Weight 62.7 kg - Renal Dosing Renal Dosing: BUN 7 mg/dL (7-18) 10/05/21 06:00 Creatinine 0.7 mg/dL (0.55-1.02) 10/05/21 06:00 Medications needing adjustments: Reviewed - Anticoagulation Anticoagulation: Hgb 11.4 g/dL (11.2-15.7) 10/05/21 06:00 Hct 36.0 % (36.0-46.0) 10/05/21 06:00 Plt Count 288 10^3/uL (130-400) 10/05/21 06:00 Creatinine 0.7 mg/dL (0.55-1.02) 10/05/21 06:00 DVT Prophylaxis: N/A - Opiate Usage Evaluate Pain Scale/Pains Meds: N/A - Relevant Labs Sodium 142 mmol/L (136-145) 10/05/21 06:00 Potassium 2.9 mmol/L (3.5-5.1) L 10/05/21 06:00 Chloride 105 mmol/L (98-107) 10/05/21 06:00 Magnesium 2.1 mg/dL (1.8-2.4) 10/04/21 18:20 C-Reactive Protein 0.73 mg/dL (0.0-0.3) H 10/05/21 06:00 Electrolytes, C-Reactive P, ESR: Reviewed (potassium being repleted with 40 meq PO plus 30 meq IV today) - DM Control DM Control: Glucose 103 mg/dL (74-106) 10/05/21 06:00 Insulin Dosing: N/A - Heart Failure/ND EF%, MATTHEW's, B-Blockers, Diuretics: N/A - BP Control BP Control: Blood Pressure [Right Arm] 132/79 Blood Pressure 130/78 Blood Pressure 151/81 Blood Pressure 132/79 Blood Pressure 133/81 If elevated: Reviewed (takes amlodipine at home) - Qtc Review If Elevated: Reviewed List meds needing interventions: QTc 468 on admission - IV to PO Switch IV Medications: Reviewed - Home Meds Home Med List reviewed: Intervened Relevent Home Meds Not ordered & why?: not ordered: amlodipine, flonase, probiotic, magox, metamucil; corrected amlodipine dose, fills 10mg tab per pharmacy records - Current meds Current Medication Order Review: Reviewed (IV cipro + IV falgyl ordered for suspected infectious colitis)
[2021-10-05 12:08] LABS: COVID-19 PCR Negative (Negative)
[2021-10-05] MEDS: predniSONE 20 MG TAB 40 MG PO (12:23)
[2021-10-05 16:27] VITALS: BP 124/78; PULSE 89; RESP 18; TEMP 37.2; O2SAT 96
[2021-10-05] MEDS: Bisacodyl 5 MG TABEC 10 MG PO ×3 (16:37→22:26)
--- NOTE | 2021-10-05 17:09 | PGE_ITS ---
Date of Service Date of service: 10/05/21 Time of Service: 11:00 Assessment and Plan Assessment and plan (1) Diarrhea: Start date: 10/05/21 Start time: 12:00 Status: Acute Assessment and plan: Given full liquid and tolerated. Stopped IV medication based on procal and crp. As she is not showing signs of infectious process. Trial steroids and hemorrhoid cream Surgery consulted. Going for flex sigmoid with biopsy tomorrow. Will make NPO for tomorrow. (2) Hematochezia: Start date: 10/05/21 Start time: 17:18 Status: Acute Assessment and plan: Patient did not have any bloody BM today. discussed with Dr. Flores. Subjective Subjective Patient reports: other Interval history since last seen: Patient lying in bed. States that she ate yesterday and all she had been doing last 24 hours is been having bloody stool. She also states that sometimes when she eats she gets diaphorietic, abd pain and vomits. She has been seen by GI at [facility] and Diagnosed with chronic constipation. She is going to have a flex sigmoind colon with biopsy tomorrow with Dr. Morin. Procal was negative. CRP 0.73. stopped antibx, not febrile. Started on steroids and hemorrhoid cream. She did have a BM this afternoon and no blood. Exam Narrative Exam Narrative: HEENT atraumatic; neck supple; lungs clear; heart RRR; abdomen soft and NT; extremities w/o edema; neuro Ox3, nonfocal Objective Last Vital Signs Temp 37.2 C 10/05/21 16:27 Pulse 89 10/05/21 16:27 Resp 18 10/05/21 16:27 BP 124/78 10/05/21 16:27 Pulse Ox 96 10/05/21 16:27 Laboratory Results - last 24 hr 10/04/21 10/04/21 10/04/21 17:00 18:20 18:20 WBC RBC Hgb Hct MCV MCH MCHC RDW Plt Count MPV Immature Gran % Neutrophils % Lymphocytes % Monocytes % Eosinophils % Basophils % Nucleated RBC % Absolute Neutrophils Absolute Lymphocytes Absolute Monocytes Absolute Eosinophils Absolute Basophils Sodium 141 Potassium 3.1 L Chloride 105 Carbon Dioxide 26.6 Anion Gap 9.4 BUN 18 Creatinine 0.9 Estimated GFR/1.73 m2 >= 60.00 Glucose 106 Calcium 9.2 Magnesium 2.1 Total Bilirubin 0.4 AST 17 ALT 25 Alkaline Phosphatase 84 C-Reactive Protein Total Protein 8.2 Albumin 4.3 Procalcitonin Urine Color Yellow Urine Clarity Clear Urine pH 7.0 Ur Specific [place] 1.020 Urine Protein Negative Urine Ketones Negative Urine Blood Small H Urine Nitrite Negative Urine Bilirubin Negative Urine Urobilinogen 0.2 Ur Leukocyte Esterase Negative Urine RBC 3-5 H Urine WBC 3-5 Ur Epithelial Cells Few Urine Crystals Negative Urine Bacteria Negative Urine Casts Negative Urine Mucus Negative Ur Culture Indicated? No Urine Glucose Negative Stl C.difficile Tox PCR COVID-19 Source SARS-CoV-2 (PCR) Patient ABO/Rh A Positive Antibody Screen NEGATIVE 10/04/21 10/04/21 10/04/21 18:20 23:00 23:07 WBC 9.20 RBC 4.06 Hgb 11.9 Hct 36.6 MCV 90.1 MCH 29.3 MCHC 32.5 RDW 12.9 Plt Count 311 MPV 10.4 Immature Gran % 0.3 Neutrophils % 65.5 Lymphocytes % 22.3 Monocytes % 10.5 Eosinophils % 1.1 Basophils % 0.3 Nucleated RBC % 0 Absolute Neutrophils 6.02 Absolute Lymphocytes 2.05 Absolute Monocytes 0.97 H Absolute Eosinophils 0.10 Absolute Basophils 0.03 Sodium Potassium Chloride Carbon Dioxide Anion Gap BUN Creatinine Estimated GFR/1.73 m2 Glucose Calcium Magnesium Total Bilirubin AST ALT Alkaline Phosphatase C-Reactive Protein Total Protein Albumin Procalcitonin Urine Color Urine Clarity Urine pH Ur Specific [place] Urine Protein Urine Ketones Urine Blood Urine Nitrite Urine Bilirubin Urine Urobilinogen Ur Leukocyte Esterase Urine RBC Urine WBC Ur Epithelial Cells Urine Crystals Urine Bacteria Urine Casts Urine Mucus Ur Culture Indicated? Urine Glucose Stl C.difficile Tox PCR Negative COVID-19 Source Nasal/Nares SARS-CoV-2 (PCR) Negative Patient ABO/Rh Antibody Screen 10/04/21 10/05/21 10/05/21 23:10 06:00 06:00 WBC 6.86 RBC 3.95 Hgb 11.4 Hct 36.0 MCV 91.1 MCH 28.9 MCHC 31.7 L RDW 13.0 Plt Count 288 MPV 10.6 Immature Gran % Neutrophils % Lymphocytes % Monocytes % Eosinophils % Basophils % Nucleated RBC % Absolute Neutrophils Absolute Lymphocytes Absolute Monocytes Absolute Eosinophils Absolute Basophils Sodium 142 Potassium 2.9 L Chloride 105 Carbon Dioxide 25.8 Anion Gap 11.2 H BUN 7 Creatinine 0.7 Estimated GFR/1.73 m2 >= 60.00 Glucose 103 Calcium 8.5 Magnesium Total Bilirubin AST ALT Alkaline Phosphatase C-Reactive Protein Total Protein Albumin Procalcitonin Urine Color Urine Clarity Urine pH Ur Specific [place] Urine Protein Urine Ketones Urine Blood Urine Nitrite Urine Bilirubin Urine Urobilinogen Ur Leukocyte Esterase Urine RBC Urine WBC Ur Epithelial Cells Urine Crystals Urine Bacteria Urine Casts Urine Mucus Ur Culture Indicated? Urine Glucose Stl C.difficile Tox PCR Cancelled COVID-19 Source SARS-CoV-2 (PCR) Patient ABO/Rh Antibody Screen 10/05/21 10/05/21 06:00 06:00 WBC RBC Hgb Hct MCV MCH MCHC RDW Plt Count MPV Immature Gran % Neutrophils % Lymphocytes % Monocytes % Eosinophils % Basophils % Nucleated RBC % Absolute Neutrophils Absolute Lymphocytes Absolute Monocytes Absolute Eosinophils Absolute Basophils Sodium Potassium Chloride Carbon Dioxide Anion Gap BUN Creatinine Estimated GFR/1.73 m2 Glucose Calcium Magnesium Total Bilirubin AST ALT Alkaline Phosphatase C-Reactive Protein 0.73 H Total Protein Albumin Procalcitonin < 0.1 Urine Color Urine Clarity Urine pH Ur Specific [place] Urine Protein Urine Ketones Urine Blood Urine Nitrite Urine Bilirubin Urine Urobilinogen Ur Leukocyte Esterase Urine RBC Urine WBC Ur Epithelial Cells Urine Crystals Urine Bacteria Urine Casts Urine Mucus Ur Culture Indicated? Urine Glucose Stl C.difficile Tox PCR COVID-19 Source SARS-CoV-2 (PCR) Patient ABO/Rh Antibody Screen PAWSS Have you Been Recently Intoxicated or Drunk Within the Last 30 days?: No Have you Ever Experienced Previous Episodes of Alcohol Withdrawal?: No Have you ever Experienced Withdrawal Seizures?: No Have you ever Experienced Delirium Tremens(DT)s?: No Have you ever undergone Alcohol Rehabilitation Treatment (i.e, inpt ot outpatient treatment programs)?: No Have you ever Experienced Blackouts?: No Have you ever Combined Alcohol with other Downers within the last 90 days?: No Have you ever Combined Alcohol with any other Substance of Abuse during the last 90 days?: No Positive Blood Alcohol level on Presentation? [PCS.BAL]: No Evidence of Increased Autonomic Activity (i.e. HR>120, tremor, sweating, agitation, nausea)?: No Result: 0
[2021-10-05 20:25] VITALS: BP 129/80; PULSE 88; RESP 17; TEMP 37.2; O2SAT 95
[2021-10-05] MEDS: amLODIPine 10 MG TAB PO (20:26)
[2021-10-05] MEDS: Famotidine 20 MG TAB 40 MG PO (22:26)
[2021-10-05 22:42] LABS: Campylobacter PCR Negative (Negative); Salmonella PCR Negative (Negative); Shiga Toxin PCR Negative (Negative); Shigella/Enteroinvasive Ecoli Negative (Negative)
--- NOTE | 2021-10-05 22:46 | SCONE_ITS ---
Date of service: 10/05/21 Time of Service: 22:46 Assessment and Plan Assessment and plan (1) Abnormal computed tomography angiography (CTA) of abdomen: Status: Acute (2) Fatty liver: Status: Acute (3) Acid reflux: Status: Chronic (4) Arthritis of knee, right: Status: Acute (5) Irritable bowel syndrome with constipation: Status: Acute (6) BRBPR (bright red blood per rectum): Status: Acute Assessment and plan: -I did review her records from her procedure at [facility], as well as the recommendations from her GI consultation Patient notes that she does not feel the fiber is working for her anymore I did personally review the results of the CT scan. C. difficile is negative. fecal calprotectin is pending. CRP is 0.7 We will plan on doing a flexible sigmoid on we can obtain biopsies. We will not do a full bowel prep for this. Risks include but not limited to bleeding, infection, pneumonia, aspiration, complications of anesthesia, need for removal of more tissue, and perforation of the colon which could result in surgery. Patient had no problems with the procedure or with the anesthesia in August when she had a colonoscopy at [facility]. Further recommendations to follow (7) Hemorrhoids: Status: Acute History of Present Illness Narrative: Surgical service is asked to be seen the patient by the hospitalist service. Patient was admitted on 10/04 with abdominal pain and diarrhea. Patient has a longstanding history of what sounds like IBS?C. She recently was down at [facility] and had a full colonoscopy. I did review the notes and [place]. She had moderate diverticular disease of the sigmoid colon and a polyp that was removed that was adenomatous. They recommended repeat scope in 7 years time. She had a FibroScan which was consistent with Suarez. She had anal rectal manometry which was normal for age. They recommended daily fiber supplementation and peppermint oil. She states that once or twice a month she will develop problems with severe constipation and will not have a bowel movement for 3 or 4 days. Then she will have sharp pain in the left lower quadrant which results in multiple bouts of diarrhea. She normally never has bleeding. This particular episode she was passing bright red blood and large clots. She was noted to have hemorrhoids on her colonoscopy. She has tried multiple remedies for her constipation including MiraLAX, milk of magnesia, etc. Patient notes things will be fine for a few months and then she seems to build up a tolerance to what ever she is taking and eventually she will wind up back with a constipation and severe pain episodes. Patient has not noticed any recent weight loss. This particular episode was very severe. She was also running a low-grade temp and had a vaso vagal response where she was dizzy, sweating and felt like she was going to pass out She does have a history of vitiligo. She is not doing any aggressive treatment for this. There is no family history of inflammatory bowel disease that she is aware of. There is no family history of colon cancer that she is aware of. CT:Mild to moderate diffuse left hemicolonic wall thickening, mucosal hyperenhancement and mild pericolonic stranding from splenic flexure to rectum, likely infectious/inflammatory colitis. Minimal sigmoid diverticulosis; bowel wall thickening is disproportionate relative to pericolonic stranding, which is atypical for diverticulitis. No other abnormal bowel wall thickening. No bowel obstruction She has been using Celebrex for arthritis pain She is not been taking a large amount of aspirin or NSAIDs. She has no history of DC/CVA A/hyperlipidemia/PAD She does have a history of moderate diverticular disease but this does not appear to be a diverticulitis and some other type of colitis. CRP is 0.7. C. difficile was negative. Fecal calprotectin is pending. At this time she is not having any abdominal pain, fever or chills, or any further diarrhea or bleeding. Hemoglobin is stable. Hemodynamic status has been stable. Review of Systems All systems reviewed & are unremarkable except as noted in HPI and below PFSH All Active Problems Hemorrhoids (Acute) BRBPR (bright red blood per rectum) (Acute) Irritable bowel syndrome with constipation (Acute) Abnormal computed tomography angiography (CTA) of abdomen (Acute) Diarrhea (Acute) Hematochezia (Acute) Atrophic vaginitis (Acute 12/31/13) Carpal tunnel syndrome on both sides (Acute 02/05/15) Chronic rhinitis (Acute 08/19/16) Deviated nasal septum (Acute 03/25/16) Dyspareunia (Acute 05/17/17) Hypertrophy of inferior nasal turbinate (Acute 03/25/16) Mass of face (Acute 09/01/17) Mass of left ear auricle (Acute 07/21/17) Nasal congestion (Acute 03/25/16) Vaginal atrophy (Acute 01/01/15) Vitiligo (Acute 01/01/13) Contusion of left foot, initial encounter (Acute ~10/2019) Adhesive capsulitis of left shoulder (Acute) Scapular dyskinesis (Acute) Strain of cervical portion of left trapezius muscle (Acute) Tendonitis of long head of biceps brachii of right shoulder (Acute) Blood-tinged sputum (Acute) Post-nasal drip (Acute) Arthritis of right acromioclavicular joint (Acute) Bursitis of right shoulder (Acute) Impingement syndrome of right shoulder (Acute) Labral tear of hip joint (Acute) Trochanteric bursitis of right hip (Acute) Iliotibial band syndrome of right side (Acute) Arthritis of knee, right (Acute) Epigastric pain (Acute) Acid reflux (Chronic) Fatty liver (Acute) Status post arthroscopy of left shoulder (Acute 10/26/19) With biceps tenodesis Medical History Anxiety Arthritis of left acromioclavicular joint Depression GERD History of excessive cerumen Impingement syndrome of left shoulder Migraine Seasonal allergic rhinitis Superior labrum [id number] (SLAP) tear of left shoulder Tendinitis of long head of biceps brachii of left shoulder Vitiligo Surgical History Colon/endoscopy 07/2013 repeated negative endoscopy Diverticulosis colon done at [facility] Endometrial Ablation 2008 History of surgical removal of ganglion cyst x2, R foot, L hand Ligation of fallopian tube 1984 R trochanteric bursectomy with IT band tenotomy 07/2012 Sinus cyst removed 2007 Family History Other Heart disease Hyperlipidemia Personal history of malignant neoplasm Social History Smoking/Tobacco Use Status: Never Smoking risk assessment performed?: Yes Alcohol Intake: current Alcohol Intake frequency: holidays/special occasions only Alcohol type: beer Drug use: Never Substance use type: does not use Current gender identity: female Do you feel safe at home: Yes Do you feel safe in your relationship?: Yes Exam HENMT Ears: hearing grossly normal bilaterally Teeth and gingiva: multiple restorations Cardio Rate: regular rate Rhythm: regular rhythm GI Palpation: soft Auscultation: normal bowel sounds Extrem General: no clubbing, cyanosis or edema Results Last Vital Signs Temp 37.2 C 10/05/21 20:25 Pulse 88 10/05/21 20:25 Resp 17 10/05/21 20:25 BP 129/80 10/05/21 20:25 Pulse Ox 95 10/05/21 20:25 Labs Result diagrams: 10/05/21 06:00 10/05/21 06:00 Labs: Laboratory Results - last 24 hr 10/04/21 10/04/21 10/04/21 23:00 23:07 23:10 WBC RBC Hgb Hct MCV MCH MCHC RDW Plt Count MPV Sodium Potassium Chloride Carbon Dioxide Anion Gap BUN Creatinine Estimated GFR/1.73 m2 Glucose Calcium C-Reactive Protein Procalcitonin Stl C.difficile Tox PCR Negative Cancelled COVID-19 Source Nasal/Nares SARS-CoV-2 (PCR) Negative 10/05/21 10/05/21 10/05/21 06:00 06:00 06:00 WBC 6.86 RBC 3.95 Hgb 11.4 Hct 36.0 MCV 91.1 MCH 28.9 MCHC 31.7 L RDW 13.0 Plt Count 288 MPV 10.6 Sodium 142 Potassium 2.9 L Chloride 105 Carbon Dioxide 25.8 Anion Gap 11.2 H BUN 7 Creatinine 0.7 Estimated GFR/1.73 m2 >= 60.00 Glucose 103 Calcium 8.5 C-Reactive Protein 0.73 H Procalcitonin Stl C.difficile Tox PCR COVID-19 Source SARS-CoV-2 (PCR) 10/05/21 06:00 WBC RBC Hgb Hct MCV MCH MCHC RDW Plt Count MPV Sodium Potassium Chloride Carbon Dioxide Anion Gap BUN Creatinine Estimated GFR/1.73 m2 Glucose Calcium C-Reactive Protein Procalcitonin < 0.1 Stl C.difficile Tox PCR COVID-19 Source SARS-CoV-2 (PCR)
[2021-10-05 23:37] VITALS: BP 125/75; PULSE 89; RESP 18; TEMP 37.2; O2SAT 96
[2021-10-06] MEDS: Fluticasone NASAL SPRAY 16 GM BTL NS ×2 (00:09→12:02)
[2021-10-06] MEDS: Lactated Ringers 1,000 ML 150 ML IV ×3 (04:45→18:11)
[2021-10-06] MEDS: Bisacodyl 5 MG TABEC 10 MG PO (05:34)
[2021-10-06 07:04] VITALS: BP 128/74; PULSE 82; RESP 15; TEMP 36.8; O2SAT 97
[2021-10-06 07:05] LABS: Abs Immature Grans 0.03 10^3/uL (0.0-0.06); Absolute Basophil Count 0.03 10^3/uL (0.0-0.2); Absolute Eosinophil Count 0.02 10^3/uL (0.0-0.7); Absolute Lymphocyte Count 2.16 10^3/uL (1.2-3.4); Absolute Neutrophil Count 5.38 10^3/uL (1.2-6.7); Basophils % 0.4; Eosinophils % 0.2; HCT 36.8 % (36.0-46.0); HGB 11.6 g/dL (11.2-15.7); Immature Grans % 0.4; Lymphocytes % 25.7; MCH 28.9 pg (27.0-33.0); MCHC 31.5 % (32.0-36.0); MCV 91.5 fL (80-95); MPV 10.5 fL (8.0-11.0); Monocytes % 9.5; Neutrophils % 63.8; Nucleated RBC 0 %; Platelet Count 301 10^3/uL (130-400); RBC 4.02 10^6/uL (3.93-5.22); RDW 12.9 % (11.7-14.6); RDW-SD 43.7 fL; WBC 8.42 10^3/uL (4.4-10.8)
[2021-10-06 07:14] LABS: Anion Gap 8.5 mmol/L (3-11); BUN 8 mg/dL (7-18); CO2 28.5 mmol/L (21.0-32.0); CREATININE 0.8 mg/dL (0.55-1.02); Calcium 9.4 mg/dL (8.5-10.1); Chloride 105 mmol/L (98-107); Glucose 101 mg/dL (74-106); Potassium 3.3 mmol/L (3.5-5.1); Sodium 142 mmol/L (136-145)
[2021-10-06 07:16] LABS: C-Reactive Protein 0.33 mg/dL (0.0-0.3)
[2021-10-06 07:48] VITALS: BP 122/74; PULSE 77; RESP 16; O2SAT 95
[2021-10-06 07:57] VITALS: BP 122/74; PULSE 77; RESP 16; TEMP 36.3; O2SAT 95
--- NOTE | 2021-10-06 10:06 | W.PM.PROGNOT ---
Date of Service Date of service: 10/06/21 Time of Service: 08:45 Assessment and Plan Assessment and plan (1) Diarrhea: Start date: 10/06/21 Start time: 08:45 Status: Acute Assessment and plan: OR today for flex sig with biopsy. NPO since MN. BM yesterday with no blood. She has had cramping with BM (2) Hematochezia: Start date: 10/06/21 Start time: 08:45 Status: Acute Assessment and plan: Patient did not have any bloody BM since admission discussed with Dr. Flores. Subjective Subjective Patient reports: other Interval history since last seen: Patient feeling well. Going to surgery with Dr. Morin today for flexsig with biopsy. She has thickened colon wall. Not infectious per procal and crp. Afebrile. No leukocytosis. She gets severe cramping then will have to have a BM. No blood since admission. Otherwise no complaints. Pain to RLQ Exam Narrative Exam Narrative: HEENT atraumatic; neck supple; lungs clear; heart RRR; abdomen soft and pain to RLQ with palpation; extremities w/o edema; neuro Ox3, nonfocal Objective Last Vital Signs Temp 36.3 C L 10/06/21 07:57 Pulse 77 10/06/21 07:57 Resp 16 10/06/21 07:57 BP 122/74 10/06/21 07:57 Pulse Ox 95 10/06/21 07:57 Laboratory Results - last 24 hr 10/04/21 10/05/21 10/06/21 23:07 09:42 06:25 WBC RBC Hgb Hct MCV MCH MCHC RDW Plt Count MPV Immature Gran % Neutrophils % Lymphocytes % Monocytes % Eosinophils % Basophils % Nucleated RBC % Absolute Neutrophils Absolute Lymphocytes Absolute Monocytes Absolute Eosinophils Absolute Basophils Sodium Potassium Chloride Carbon Dioxide Anion Gap BUN Creatinine Estimated GFR/1.73 m2 Glucose Calcium C-Reactive Protein 0.33 H Stool Campylobacter PCR Negative Stool Salmonella PCR Negative Stool Shigella PCR Negative SARS-CoV-2 (PCR) Negative Shiga Toxin (PCR) Negative 10/06/21 10/06/21 06:25 06:25 WBC 8.42 RBC 4.02 Hgb 11.6 Hct 36.8 MCV 91.5 MCH 28.9 MCHC 31.5 L RDW 12.9 Plt Count 301 MPV 10.5 Immature Gran % 0.4 Neutrophils % 63.8 Lymphocytes % 25.7 Monocytes % 9.5 Eosinophils % 0.2 Basophils % 0.4 Nucleated RBC % 0 Absolute Neutrophils 5.38 Absolute Lymphocytes 2.16 Absolute Monocytes 0.80 Absolute Eosinophils 0.02 Absolute Basophils 0.03 Sodium 142 Potassium 3.3 L Chloride 105 Carbon Dioxide 28.5 Anion Gap 8.5 BUN 8 Creatinine 0.8 Estimated GFR/1.73 m2 >= 60.00 Glucose 101 Calcium 9.4 C-Reactive Protein Stool Campylobacter PCR Stool Salmonella PCR Stool Shigella PCR SARS-CoV-2 (PCR) Shiga Toxin (PCR) PAWSS Have you Been Recently Intoxicated or Drunk Within the Last 30 days?: No Have you Ever Experienced Previous Episodes of Alcohol Withdrawal?: No Have you ever Experienced Withdrawal Seizures?: No Have you ever Experienced Delirium Tremens(DT)s?: No Have you ever undergone Alcohol Rehabilitation Treatment (i.e, inpt ot outpatient treatment programs)?: No Have you ever Experienced Blackouts?: No Have you ever Combined Alcohol with other Downers within the last 90 days?: No Have you ever Combined Alcohol with any other Substance of Abuse during the last 90 days?: No Positive Blood Alcohol level on Presentation? [PCS.BAL]: No Evidence of Increased Autonomic Activity (i.e. HR>120, tremor, sweating, agitation, nausea)?: No Result: 0
[2021-10-06 10:14] VITALS: O2SAT 95
--- NOTE | 2021-10-06 11:40 | ANES.PREOP_ITS ---
General Info Date of Service Date Performed: 10/06/21 Height: 5 ft 5 in Weight: 62.7 kg Body Mass Index (BMI): 23.0 Surgical Procedure: Operation Date: 10/06/21 13:25 Proposed Procedures Side Surgeon p Flexible Sigmoidoscopy w/bxs Trish Landa DO Meds Allergies and Home Medications Allergies Allergy/AdvReac Type Severity Reaction Status Date / Time clindamycin Allergy Intermediate Skin Rash Verified 10/04/21 17:55 Estrogens Allergy Intermediate Skin Rash Verified 10/04/21 17:55 Penicillins Allergy Intermediate Skin Rash Verified 10/04/21 17:55 gabapentin Allergy Psychosis Verified 10/04/21 17:55 acetaminophen [From Vicodin] AdvReac Intermediate Verified 10/04/21 17:55 hydrocodone [From Vicodin] AdvReac Intermediate Verified 10/04/21 17:55 Home Medication Medication Instructions Recorded amlodipine [Norvasc] 10 mg PO DAILY 11/19/12 fluticasone propionate [Flonase 9.9 ml NS 2 SPRAYS QD 02/04/15 Allergy Relief] lactobacillus combination no.8 3 3,000 mmu cells PO DAILY 10/02/19 billion cell capsule acetaminophen 500 mg capsule 500 mg PO QID PRN 12/26/19 magnesium oxide 400 mg PO DAILY 12/23/20 famotidine 40 mg PO HS 06/02/21 psyllium [Metamucil] 1 packet PO DAILY 10/04/21 Current Visit Medications: Current Medications Generic Name Dose Route Start Last Admin Trade Name Freq PRN Reason Stop Dose Admin Amlodipine Besylate 10 mg 10/06/21 20:00 Amlodipine 10 Mg Tab PO QPM DEYANIRA Dicyclomine HCl 10 mg 10/05/21 23:01 Dicyclomine 10 Mg Cap PO QID PRN Abdominal Pain Dimethicone/Zinc Oxide 0 gm 10/04/21 22:14 Shayy Protect Cream 142 Gm Tube TP PRN PRN Famotidine 40 mg 10/05/21 22:00 10/05/21 22:26 Famotidine 20 Mg Tab PO 40 mg HS DEYANIRA Administration Fluticasone Propionate 16 gm 10/05/21 22:43 10/06/21 00:09 Fluticasone Nasal Barre 16 Gm Btl NS 2 sprays DAILY DEYANIRA Administration Hydrocortisone 0 gm 10/05/21 11:50 10/05/21 20:28 Hydrocortisone 1% Rectal 30 Gm Tube MD 1 applic BID DEYANIRA Administration Ringer's Solution 1,000 mls @ 150 mls/hr 10/04/21 22:30 10/06/21 04:45 IV 150 mls/hr INFUSION DEYANIRA Administration Acetaminophen 1,000 mg in 100 mls @ 400 mls/hr 10/04/21 22:18 10/05/21 07:36 Ofirmev IVPB Infused Q6H PRN PRN Infusion Potassium Chloride 20 meq in 100 mls @ 50 mls/hr 10/06/21 10:15 IVPB 10/06/21 14:14 Q2H DEYANIRA Prednisone 40 mg 10/05/21 11:50 10/05/21 12:23 Prednisone 20 Mg Tab PO 40 mg DAILY DEYANIRA Administration Sodium Chloride 0 ml 10/04/21 20:23 10/05/21 06:48 Normal Saline Flush 10 Ml Syr IVP 10 ml PRN PRN Administration Zolpidem Tartrate 5 mg 10/04/21 22:18 Zolpidem 5 Mg Tab PO HS PRN MAY REPEAT X1 PRN PFSH Active Problems Active Problems: Problem Status Onset Code Hemorrhoids K64.9 BRBPR (bright red blood per rectum) K62.5 Irritable bowel syndrome with constipation K58.1 Abnormal computed tomography angiography (CTA) of abdomen R93.5 Diarrhea R19.7 Hematochezia K92.1 Atrophic vaginitis 12/31/13 N95.2 Carpal tunnel syndrome on both sides 02/05/15 G56.03 Chronic rhinitis 08/19/16 J31.0 Deviated nasal septum 03/25/16 J34.2 Dyspareunia 05/17/17 Hypertrophy of inferior nasal turbinate 03/25/16 J34.3 Mass of face 09/01/17 R22.0 Mass of left ear auricle 07/21/17 H93.8X2 Nasal congestion 03/25/16 R09.81 Vaginal atrophy 01/01/15 N95.2 Vitiligo 01/01/13 L80 Contusion of left foot, initial encounter ~10/2019 S90.32XA Adhesive capsulitis of left shoulder M75.02 Scapular dyskinesis G25.89 Strain of cervical portion of left trapezius muscle S16.1XXA Tendonitis of long head of biceps brachii of right shoulder M75.21 Blood-tinged sputum R04.2 Post-nasal drip R09.82 Arthritis of right acromioclavicular joint M19.011 Bursitis of right shoulder M75.51 Impingement syndrome of right shoulder M75.41 Labral tear of hip joint S73.199A Trochanteric bursitis of right hip M70.61 Iliotibial band syndrome of right side M76.31 Arthritis of knee, right M17.11 Epigastric pain R10.13 Acid reflux K21.9 Fatty liver K76.0 Status post arthroscopy of left shoulder 10/26/19 Z98.890 Medical History Medical History Anxiety Arthritis of left acromioclavicular joint Depression GERD History of excessive cerumen Impingement syndrome of left shoulder Migraine Seasonal allergic rhinitis Superior labrum kwjyladk-ij-icleqbavy (SLAP) tear of left shoulder Tendinitis of long head of biceps brachii of left shoulder Vitiligo Surgical History Surgical History Colon/endoscopy 07/2013 repeated negative endoscopy Diverticulosis colon done at [facility] Endometrial Ablation 2009 History of surgical removal of ganglion cyst x2, R foot, L hand Ligation of fallopian tube 1984 R trochanteric bursectomy with IT band tenotomy 07/2012 Sinus cyst removed 2006 Tobacco Smoking/Tobacco Use Status: Never Alcohol Alcohol Intake: current Alcohol intake frequency: holidays/special occasions only Alcohol type: beer Substance Use Substance use: Never Substance use type: does not use Vital Signs and Lab Results Vital Signs Most Recent Vital Signs in EMR: Most Recent Vital Signs Temp Pulse Resp BP Pulse Ox 36.3 C L 77 16 122/74 95 10/06/21 07:57 10/06/21 07:57 10/06/21 07:57 10/06/21 07:57 10/06/21 10:14 Lab Results Result Diagrams: 10/06/21 06:25 10/06/21 06:25 Blood Type / Crossmatch: Patient ABO/Rh A Positive 10/04/21 Antibody Screen NEGATIVE 10/04/21 Complete Blood Count: White Blood Count 8.42 10^3/uL (4.4-10.8) 10/06/21 06:10/06/21 Red Blood Count 4.02 10^6/uL (3.93-5.22) 10/06/21 06:25 10/06/21 Hemoglobin 11.6 g/dL (11.2-15.7) 10/06/21 06:10/06/21 Hematocrit 36.8 % (36.0-46.0) 10/06/21 06:10/06/21 Platelet Count 301 10^3/uL (130-400) 10/06/21 06:10/06/21 Complete Metabolic Panel: Sodium Level 142 mmol/L (136-145) 10/06/21 06:10/06/21 Potassium Level 3.3 mmol/L (3.5-5.1) L 10/06/21 06:10/06/21 Chloride Level 105 mmol/L (98-107) 10/06/21 06:10/06/21 Carbon Dioxide Level 28.5 mmol/L (21.0-32.0) 10/06/21 06:10/06/21 Blood Urea Nitrogen 8 mg/dL (7-18) 10/06/21 06:10/06/21 Creatinine 0.8 mg/dL (0.55-1.02) 10/06/21 06:10/06/21 Estimated GFR/1.73 m2 >= 60.00 (mL/min/1.73m2) 10/06/21 06:10/06/21 Magnesium Level 2.1 mg/dL (1.8-2.4) 10/04/21 18:10/04/21 Calcium Level 9.4 mg/dL (8.5-10.1) 10/06/21 06:10/06/21 Albumin 4.3 g/dL (3.4-5.0) 10/04/21 18:10/04/21 Glucose Level 101 mg/dL (74-106) 10/06/21 06:10/06/21 C-Reactive Protein 0.33 mg/dL (0.0-0.3) H 10/06/21 06:10/06/21 Liver Function Panel: Alanine Aminotransferase (ALT/SGPT) 25 U/L (14-59) 10/04/21 18:20 10/04/21 Aspartate Amino Transf (AST/SGOT) 17 U/L (15-37) 10/04/21 18:20 10/04/21 Coagulation Panel: No Data to Display Cardiac Panel: No Data to Display Arterial Blood Gas: No Data to Display Venous Blood Gas: No Data to Display Pancreas Panel: No Data to Display Thyroid Panel: No Data to Display Infectious Disease: Coronavirus (COVID-19)(PCR) Negative (Negative) 10/04/21 23:07 10/04/21 Coronavirus 2019 Source Nasal/Nares 10/04/21 23:07 10/04/21 Blood Cultures: No Data to Display Toxicology Panel: No Data to Display Imaging and Studies Imaging and Studies Study information below may be from another EMR and interpreted by another provider. Please see original notes in EMR for more complete details. EKG Summary: Conclusion Sinus rhythm...normal P axis Probable left atrial enlargement 05/03/21 Pulmonary Function Summary: DATE OF SERVICE: January 04, 2017 REQUESTING PROVIDER: Moustapha Givens M.D. INTERPRETATION OF STUDY: Spirometry shows possible borderline mild obstructive airways disease; however, more likely, this represents a normal variant. There is no significant bronchodilator response. LUNG VOLUMES: Show no evidence of restriction. DIFFUSION CAPACITY: Normal. AIRWAYS RESISTANCE: Normal. IMPRESSION: Overall normal pulmonary function study. If the diagnosis of asthma is in question, proceeding with methacholine challenge testing may prove to be useful. Clinical correlation recommended. Anesthesia Assessment and Plan Anesthesia History Personal History: No History of Anesthesia Complications Family History: No Family History of Anesthesia Complications Exercise Tolerance Exercise Tolerance: Metabolic Equivalents>4 Pertinent Negatives Pertinent Negatives: No Symptoms of GERD Cardiac & Pulmonary Exam Cardiac Exam: Normal S1/S2 Heart Sounds Pulmonary Exam: Clear Bilateral Breath Sounds Implantable Cardiac Device Does patient have a Pacemaker or an ICD?: No Airway Exam Known Difficult Airway: No Mallampati Class: 2 Mouth Opening: Normal (> 3cm) Thyromental Distance: Less than 3 cm Neck Range of Motion: Full ROM Neck Circumference: Normal Teeth Condition: Normal Dentition ASA Classification ASA Score: ASA 2 Emergency Case?: No NPO Status NPO Status: NPO Clears >2 hours, Solids >8 hours Anesthesia Plan Resuscitation Status: Full Code Anesthesia Technique: General Anesthesia Airway Planned: Natural Airway Monitors Used: Standard Monitors
--- NOTE | 2021-10-06 11:56 | INITIAL_ITS ---
- If Service Date Differs Date of service: 10/06/21 Time of Service: 11:56 Care Management Initial Assess REASON FOR HOSPITALIZATION:: Diarrhea, Hematochezia PAST MEDICAL HISTORY/PAST SURGICAL HISTORY:: All Active Problems . Diarrhea (Acute). Hematochezia (Acute). Atrophic vaginitis (Acute 12/31/13). Carpal tunnel syndrome on both sides (Acute 02/05/15). Chronic rhinitis (Acute 08/19/16). Deviated nasal septum (Acute 03/25/16). Dyspareunia (Acute 05/17/17). Hypertrophy of inferior nasal turbinate (Acute 03/25/16). Mass of face (Acute 09/01/17). Mass of left ear auricle (Acute 07/21/17). Nasal congestion (Acute 03/25/16). Vaginal atrophy (Acute 01/01/15). Vitiligo (Acute 01/01/13). Contusion of left foot, initial encounter (Acute ~10/2019). Adhesive capsulitis of left shoulder (Acute). Scapular dyskinesis (Acute). Strain of cervical portion of left trapezius muscle (Acute). Tendonitis of long head of biceps brachii of right shoulder (Acute). Blood-tinged sputum (Acute). Post-nasal drip (Acute). Arthritis of right acromioclavicular joint (Acute). Bursitis of right shoulder (Acute). Impingement syndrome of right shoulder (Acute). Labral tear of hip joint (Acute). Trochanteric bursitis of right hip (Acute). Iliotibial band syndrome of right side (Acute). Arthritis of knee, right (Acute). Epigastric pain (Acute). Acid reflux (Chronic). Fatty liver (Acute). Status post arthroscopy of left shoulder (Acute 10/26/19). With biceps tenodesis. Medical History . Anxiety. Arthritis of left acromioclavicular joint. Depression. GERD. History of excessive cerumen. Impingement syndrome of left shoulder. Migraine. Seasonal allergic rhinitis. Superior labrum diwyybbc-ua-vejgxcomr (SLAP) tear of left shoulder. Tendinitis of long head of biceps brachii of left shoulder. Vitiligo. Surgical History . Colon/endoscopy. 2008. 07/2013 repeated negative endoscopy Diverticulosis colon done at [facility]. Endometrial Ablation. 2008. History of surgical removal of ganglion cyst. x2, R foot, L hand. Ligation of fallopian tube. 1983. R trochanteric bursectomy. with IT band tenotomy 07/2012. Sinus cyst removed. 2006 PREVIOUS FUNCTIONAL STATUS/SOCIAL/FAMILY SUPPORTS:: Estela lives in [facility] with her Dane. She is independent at baseline and has her own cleaning service. CURRENT FUNCTIONAL STATUS:: Estela was sitting up in bed when CM met with her. She was alert and oriented and easily engaged in conversation. A Flexsig with biopsy is planned today with Dr. Landa. Estela is up independently, remains NPO, on IV ABX and IVF at this time. ADVANCE DIRECTIVES:: None, CM will offer Has patient been provided with info about the portal/API?: Yes Did the patient sign up for the portal?: Yes CODE STATUS:: Full Code INSURANCE COVERAGE / FINANCIAL ISSUES:: [employer]. Financial Assist 70 CURRENT HOME/COMMUNITY SERVICES/EQUIPMENT:: None PRIMARY CARE PHYSICIAN:: Dr. Coffman POTENTIAL DISCHARGE NEEDS:: Follow up appointments PATIENT/FAMILY EDUCATION NEEDS:: Review discharge instructions, discuss Ask Me Three. ANTICIPATED BARRIERS TO DISCHARGE:: Possible ETOH withdrawal, PAWSS assessment utilized at this time. TRANSPORTATION:: Via private vehicle with family. PLAN:: Estela is having a flexsig procedure and biopsy with Dr. Landa today. Anticipate, she will discharge home via private vehicle with family when medically ready. She will follow up with community providers. CM will continue to assess discharge planning needs.
[2021-10-06] MEDS: POTASSIUM CHLORIDE 20 MEQ/100 ML BAG 50 MEQ IVPB ×2 (12:01→14:45)
[2021-10-06 13:46] VITALS: BMI 23.0
--- NOTE | 2021-10-06 14:08 | BOWEL_PTH ---
PATIENT: Estela Singh LOC: [place]#:[id number] AGE/SX: 61/F ROOM: RE10/04/[address]: Ted Espinoza : 1960 BED: A DIS: 10/07/2021 SPEC #: [id number] RECD: 10/06/21 17:55 STATUS: PRABHJOT RE #: [id number] ANNELIESE: 10/06/21 14:[address]: Ted Espinoza DEPT: Surgical Specimen RECD BY: Silva No ENTERED: 10/06/21 17:56 SP TYPE: Bowel OTHR DR: Nikko Coffman Laura M Tissues: 1 - BIOPSY BOWEL 2 - BIOPSY BOWEL 3 - BIOPSY BOWEL 4 - BIOPSY BOWEL Procedures: GROSS AND MICRO LEVEL 4 Comments: [id number] (PLEASE AURE MEHTA)
--- NOTE | 2021-10-06 15:11 | W.ANESPOSTOP ---
Postoperative Evaluation Date, Time and Location Date Performed: 10/06/21 Time Performed: 15:11 Patient Location: Med/Surg Vital Signs Most Recent Imported Vital Signs: Most Recent Vital Signs Temp Pulse Resp BP Pulse Ox 36.3 C L 77 16 122/74 95 10/06/21 07:57 10/06/21 07:57 10/06/21 07:57 10/06/21 07:57 10/06/21 10:14 Pain Score Most Recent Pain Score: Most Recent Pain Score Pain Level 0 10/06/21 07:57 Assessment Mental Status: Awake (Alert & Oriented to Patient Baseline) Airway and Respiratory Function: Patent airway with normal (patient baseline) respiratory exam Cardiovascular Function: Hemodynamically Stable Hydration Status: Adequately Hydrated Nausea & Vomiting: No Nausea or Vomiting Pain: Pt. Denies Any Pain Peripheral Nerve Block: Patient did not receive a nerve block
[2021-10-06 15:30] VITALS: BP 129/76; PULSE 76; RESP 18; TEMP 37; O2SAT 95
--- NOTE | 2021-10-06 16:26 | CHAPLAIN ---
Estela was sitting up in bed when I visited. She was pleasant, but did not seem interested in a longer visit. She told me she lives nearby on [facility] and has been in touch with her family by phone.
--- NOTE | 2021-10-06 20:46 | COLE_ITS ---
Colonoscopy Report Date of procedure: 10/06/21 Pre-op diagnosis general: rectal bleeding/abdomina pain/abnl CT/diarrhea Post-op diagnosis procedure note: other (diverticula/inflammation and ulceration from 40-60cm) Procedure: flexible sigmoid W/bx. Surgeon: Trish Landa Anesthesia Type: General:No Airway Estimated blood loss (mL): 2 Pathology: other Complications: None Disposition: floor Prep: Dulcolax Procedure Description: After informed consent was obtained the patient was taken to the procedure room and placed in a left decubitous position. Monitors were applied and a time out was done. The patients name, date of , procedure, al lergies to medications and metal in their body was reviewed. The patient was then sedated. Once sedated and comfortable a rectal exam was done. External exam shows few external hemorrhoidal tags. Internal exam revealed a normal sphincter tone and no palpable masses. The scope was then introduced and retrofelexed. No internal hemorrhoids were identified. The scope was then advanced to the splenic flexure. The prep was a BBPS-1. From the 40-60cm the mucosa is erthymatous and edematous w/ punctuate ulceration. This does appear to be consistent w/ UC. She has a moderate diverticula. This does not seem to be divericulitis. There is no bleeding. Multiple Bx are taken. From 20cm to rectum is normal. The rectum and anus are otherwise normal, except for some small old ext. hemorrhoidal tags. The scope was removed and the patient was woken up and taken back to Same day surgery in stable condition. The patient tolerated the procedure well and there were no immediate complications. Follow up: The patient should follow up in 2 years unless they develop changes in bowel habits or other new gastrointestinal complaints.
[2021-10-06] MEDS: Famotidine 20 MG TAB 40 MG PO (20:54)
[2021-10-06] MEDS: amLODIPine 10 MG TAB PO (20:54)
[2021-10-06] MEDS: Protein Nutritional Supplement 16 GM 1 OUNCE PACKET PO (20:55)
[2021-10-06 23:46] VITALS: BP 125/75; PULSE 84; RESP 18; TEMP 36.8; O2SAT 95
[2021-10-07] MEDS: Lactated Ringers 1,000 ML 150 ML IV ×2 (01:05→07:26)
[2021-10-07 07:16] VITALS: BP 125/83; PULSE 89; RESP 14; TEMP 36.6; O2SAT 97
[2021-10-07 07:17] VITALS: BP 117/68; PULSE 71; RESP 16; TEMP 36.6; O2SAT 95
[2021-10-07 07:17] LABS: Abs Immature Grans 0.02 10^3/uL (0.0-0.06); Absolute Basophil Count 0.04 10^3/uL (0.0-0.2); Absolute Eosinophil Count 0.07 10^3/uL (0.0-0.7); Absolute Lymphocyte Count 1.73 10^3/uL (1.2-3.4); Absolute Monocyte Count 0.53 10^3/uL (0.1-0.8); Absolute Neutrophil Count 4.83 10^3/uL (1.2-6.7); Basophils % 0.6; HCT 35.9 % (36.0-46.0); HGB 11.4 g/dL (11.2-15.7); Immature Grans % 0.3; MCH 29.2 pg (27.0-33.0); MCHC 31.8 % (32.0-36.0); MCV 91.8 fL (80-95); MPV 10.4 fL (8.0-11.0); Monocytes % 7.3; Neutrophils % 66.8; Nucleated RBC 0 %; Platelet Count 302 10^3/uL (130-400); RBC 3.91 10^6/uL (3.93-5.22); RDW-SD 43.6 fL; WBC 7.22 10^3/uL (4.4-10.8)
[2021-10-07 07:35] VITALS: O2SAT 95
[2021-10-07 07:52] LABS: Anion Gap 10.4 mmol/L (3-11); BUN 11 mg/dL (7-18); CO2 26.6 mmol/L (21.0-32.0); CREATININE 0.8 mg/dL (0.55-1.02); Calcium 9.2 mg/dL (8.5-10.1); Chloride 104 mmol/L (98-107); Glucose 98 mg/dL (74-106); Potassium 3.7 mmol/L (3.5-5.1); Sodium 141 mmol/L (136-145)
[2021-10-07] MEDS: Protein Nutritional Supplement 16 GM 1 OUNCE PACKET PO ×2 (08:46→13:13)
[2021-10-07] MEDS: Fluticasone NASAL SPRAY 16 GM BTL NS (08:49)
--- NOTE | 2021-10-07 09:10 | CMPROGNOTE_ITS ---
- If Service Date Differs Date of service: 10/07/21 Time of Service: 09:10 Care Management Progress Note S/O: A: 61 year old female admitted to [facility] on 10/04/21 for Diarrhea, Hematochezia P:Estela is being followed by surgery. She had a colonoscopy with biopsy yesterday. Anticipate, Estela will discharge home via private vehicle with family when medically ready with out patient follow up with surgery and PCP. CM will continue to assess discharge planning needs.
--- NOTE | 2021-10-07 12:58 | DSE_ITS ---
Date of service: 10/07/21 Time of Service: 12:58 DS: Diagnosis Discharge Diagnosis (1) Diarrhea: Status: Acute (2) Hematochezia: Status: Acute Discharge Plan Disposition Patient Disposition: HOME Condition: Stable Discharge Details Reason For Visit: Diarrhea, Hematochezia Admit Date/Time: 10/04/21 22:14 Admit Provider: Ted Espinoza Attending Provider: Ted Espinoza Primary Care Provider: Nikko Coffman Hospital Course Hospital Course: This is a 61 female with history of intermittent diarrhea associated with bloody stools. Colonoscopy 08/25 showed few polyps, mild diverticulosis, few external hemorrhoids. She presented to the ED at [facility] with one day of loose stool, which has since evolved into simple hemtochezia, occurring hourly. Does have some cramping prior to evacuation, otherwise no pain. In the ED her workup showed temp to 38, no leukocytosis, Hct [address] abdomen showing scattered sigmoid divertiuli, thickening left hemicolon with pericolonic stranding. She was given Cipro and Flagyl and admitted to hospitalist services. Surgery was consulted and patient underwent a flex sig with biopsy. She was started on budesonide and mesalamine. Her symptoms improved and diet advanced. She has remained hemodynamically stable and is ready for discharge to home. She will follow up with surgery outpatient discharged to home with no services. discharge discussed with DR Lu Bunnlevel Meds and New Rx's Prescriptions: New budesonide 3 mg Capsule,Delayed,Extend.Release 9 mg PO DAILY Qty: 42 RF: 0 mesalamine 1.2 gram Tablet,Delayed Release (Dr/Ec) 2.4 g PO DAILY Qty: 28 RF: 0 Continued acetaminophen 500 mg capsule 500 mg PO QID PRNRF: 0 Adult Probiotic 3 billion cell capsule 3,000 mmu cells PO DAILY RF: 0 fluticasone propionate [Flonase Allergy Relief] 9.9 ML spray,suspension 9.9 ml NS 2 SPRAYS QD RF: 0 amlodipine [Norvasc] 5 MG tablet 10 mg PO DAILY RF: 0 magnesium oxide 400 mg magnesium Tablet 400 mg PO DAILY RF: 0 famotidine 40 mg tablet 40 mg PO HS RF: 0 psyllium Packet 1 packet PO DAILY RF: 0 Discharge Instructions Instructions: Ulcerative Colitis (DC) Stand Alone Forms: Nursing Discharge Form Referrals: Trish Landa DO [OSTEOPATHIC DOCTOR] - 10/16/21 9:00 am (2 weeks) Activity:: Activity as Tolerated Equipment/Supplies:: No Equipment Needed Diet:: As Tolerated Discharge Orders Discharge Orders: Discharge Order (Routine); Ordered 10/07/21 Ordered By: Jacque Ramon Discharge Data Discharge Date/Time-TO BE ENTERED AT DEPARTURE: 10/07/21 14:19 DS: Summary Time Spent with Patient providing and/or coordinating discharge services: Less than 30 minutes Status at Discharge Functional status at discharge: independent ambulation Overall status at discharge: patient is progressing back to baseline Mental Status: mental status grossly normal Speech and Movement: speech and movement normal Mood: congruent mood Affect: normal affect Exam Const General: comfortable and no acute distress Eyes Pupils: PERRL Resp Effort & Inspection: normal respiratory effort Cardio Rate: regular rate Rhythm: regular rhythm GI Inspection: normal to inspection Palpation: soft and nontender Auscultation: normal bowel sounds Skin General skin exam: no rashes or lesions noted Neuro General: patient alert and patient oriented x3 Psych Mental Status: mental status grossly normal Speech and Movement: speech and movement normal Mood: congruent mood Affect: normal affect DS: Data Vitals/I&O Vitals and I&O: Vital Signs Temperature 36.6 C 10/07/21 07:17 Temperature Source Tympanic 10/07/21 07:17 Pulse 71 10/07/21 07:17 Pulse Rhythm Regular 10/07/21 08:44 Pulse Strength Normal 10/04/21 23:42 Pulse 84 10/04/21 23:50 Respiratory Rate 16 10/07/21 07:17 Respiratory Effort 10/07/21 08:44 Respiratory Depth Normal 10/07/21 08:44 Respiratory Pattern Normal 10/07/21 08:44 Blood Pressure 117/68 10/07/21 07:17 Blood Pressure Mean 90 10/04/21 23:46 Blood Pressure Position Supine 10/04/21 23:42 Pulse Oximetry 95 10/07/21 07:35 Oxygen Delivery Method Room Air 10/07/21 07:35 Oxygen Flow Rate 0 10/07/21 07:35 Pain Level 0 10/07/21 07:17 Comment 10/04/21 17:46 Intake & Output 10/06/21 10/07/21 10/07/21 23:59 11:59 23:59 Intake Total 1040 / 3087.5 2432.5 / 2432.5 Output Total 1999 / 330 1950 / 2950 1000 / 2950 Balance -960 / -212.5 482.5 / -517.5 -1000 / -517.5 Intake: IV 1040 / 3087.5 1951.5 / 1951.5 Oral 480 / 480 Output: Urine 1999 / 2999 1950 / 2950 1000 / 2950 Other: Urine Color Yellow Straw Yellow Urine Appearance Clear Clear Clear Urine Odor None None Comment pT went to bathroom three times and voiding total is 1,000 from that. Stool Occult Blood Negative Stool Size Moderate Small Small Stool Characteristics Liquid Soft Liquid Brown Voiding Methods Toilet Toilet Toilet Data Completed and Pending Labs on day of discharge: Labs from last 24 hours 10/07/21 10/07/21 06:15 06:15 WBC 7.22 RBC 3.91 L Hgb 11.4 Hct 35.9 L MCV 91.8 MCH 29.2 MCHC 31.8 L RDW 13.0 Plt Count 302 MPV 10.4 Immature Gran % 0.3 Neutrophils % 66.8 Lymphocytes % 24.0 Monocytes % 7.3 Eosinophils % 1.0 Basophils % 0.6 Nucleated RBC % 0 Absolute Neutrophils 4.83 Absolute Lymphocytes 1.73 Absolute Monocytes 0.53 Absolute Eosinophils 0.07 Absolute Basophils 0.04 Sodium 141 Potassium 3.7 Chloride 104 Carbon Dioxide 26.6 Anion Gap 10.4 BUN 11 Creatinine 0.8 Estimated GFR/1.73 m2 >= 60.00 Glucose 98 Calcium 9.2 PFSH All Active Problems (Updated 10/07/21 @ 17:15 by Estefania Boateng MD) Ischemic colitis (Acute) Hemorrhoids (Acute) BRBPR (bright red blood per rectum) (Acute) Irritable bowel syndrome with constipation (Acute) Abnormal computed tomography angiography (CTA) of abdomen (Acute) Diarrhea (Acute) Hematochezia (Acute) Atrophic vaginitis (Acute 12/31/13) Carpal tunnel syndrome on both sides (Acute 02/05/15) Chronic rhinitis (Acute 08/19/16) Deviated nasal septum (Acute 03/25/16) Dyspareunia (Acute 05/17/17) Hypertrophy of inferior nasal turbinate (Acute 03/25/16) Mass of face (Acute 12/28/17) Mass of left ear auricle (Acute 07/21/17) Nasal congestion (Acute 03/25/16) Vaginal atrophy (Acute 01/01/15) Vitiligo (Acute 01/01/13) Contusion of left foot, initial encounter (Acute ~10/2019) Adhesive capsulitis of left shoulder (Acute) Scapular dyskinesis (Acute) Strain of cervical portion of left trapezius muscle (Acute) Tendonitis of long head of biceps brachii of right shoulder (Acute) Blood-tinged sputum (Acute) Post-nasal drip (Acute) Arthritis of right acromioclavicular joint (Acute) Bursitis of right shoulder (Acute) Impingement syndrome of right shoulder (Acute) Labral tear of hip joint (Acute) Trochanteric bursitis of right hip (Acute) Iliotibial band syndrome of right side (Acute) Arthritis of knee, right (Acute) Epigastric pain (Acute) Acid reflux (Chronic) Fatty liver (Acute) Status post arthroscopy of left shoulder (Acute 10/26/19) With biceps tenodesis Medical History Anxiety Arthritis of left acromioclavicular joint Depression GERD History of excessive cerumen Impingement syndrome of left shoulder Migraine Seasonal allergic rhinitis Superior labrum kapqzoyy-mp-igvcfmilf (SLAP) tear of left shoulder Tendinitis of long head of biceps brachii of left shoulder Vitiligo Surgical History Colon/endoscopy 07/2013 repeated negative endoscopy Diverticulosis colon done at [facility] Endometrial Ablation 2008 History of surgical removal of ganglion cyst x2, R foot, L hand Ligation of fallopian tube 1984 R trochanteric bursectomy with IT band tenotomy 07/2012 Sinus cyst removed 2007 Family History Other Heart disease Hyperlipidemia Personal history of malignant neoplasm Social History Smoking/Tobacco Use Status: Never Smoking risk assessment performed?: Yes Alcohol Intake: current Alcohol Intake frequency: holidays/special occasions only Alcohol type: beer Drug use: Never Substance use type: does not use Current gender identity: female Do you feel safe at home: Yes Do you feel safe in your relationship?: Yes
--- NOTE | 2021-10-07 13:00 | PDOC.CMDIS ---
- If Service Date Differs Date of service: 10/07/21 Time of Service: 13:00 LACE Index Scoring Tool - Questions: Length of Stay (in days): 3 Acuity (Admit via E.D.?): Yes E.D. Visits: 3 - Answers: Total Score: 9 Risk of Readmission: Low Risk Care Management Discharge Reason for Hospitalization: Diarrhea, Hematochezia Discharge Plan: Discharge home with no new services via private vehicle with . Resume activity as tolerated. Follow up with Dr. Landa in 2 weeks. Patient/Family Education Needs: Review discharge instructions, limitations and plan to follow up with community providers. ask me three.
[2021-10-07 13:40] LABS: ANCA Interpretation Negative (Negative)
[2021-10-08 14:23] LABS: ANA Interpretation Positive (Negative); ANA Titer Pattern 1:80 Homogeneous
[2021-10-08 19:02] LABS: Calprotectin <50.0 mcg/g
== END 2021-10-07 14:19 | disposition home or self-care (01) ==
LOC: ER 23:03 → MS 23:59
PROVIDERS: Nurse Practitioner Family; Student in an Organized Health Care Education/Training Program; Surgery; Admitting Provider General Practice; Emergency Provider Physician Assistant; PCP Family Medicine; Visit Provider General Practice
PROC: 0DJD8ZZ Inspection of Lower Intestinal Tract, Via Natural or Artificial Opening Endoscopic (ICD-10-PCS; CPT 45330; principal; 2021-10-06 13:15)
DX: K55.031 Focal (segmental) acute (reversible) ischemia of large intestine (principal); K92.1 Melena; K76.0 Fatty (change of) liver, not elsewhere classified; F41.9 Anxiety disorder, unspecified; F32.9 Major depressive disorder, single episode, unspecified; K21.9 Gastro-esophageal reflux disease without esophagitis; G43.909 Migraine, unspecified, not intractable, without status migrainosus; L80 Vitiligo; M17.11 Unilateral primary osteoarthritis, right knee; K58.1 Irritable bowel syndrome with constipation; M19.012 Primary osteoarthritis, left shoulder; D89.89 Other specified disorders involving the immune mechanism, not elsewhere classified; Z20.822 Contact with and (suspected) exposure to COVID-19
CPT/HCPCS: 45331; 36415; 80048; 80053; 84145; 85027; 86255; 86850; 86900; 86901; 87493; 87505; 87635; 88305; 93005; 96361; 96365; 96367; 96368; 99285; 74177; 81003; 81015; 83735; 83993; 85025; 86038; 86140; 93010; 99217; 99219; 99225; 99226; G0378; J0131; J0744; J2001; J3480; J3490; J7512

== ENCOUNTER 2021-10-19 13:50 | Outpatient (CLI) | payer OTHER, SELFPAY ==
[2021-10-19 14:12] LABS: C-Reactive Protein < 0.05 mg/dL (0.0-0.3)
[2021-10-20 13:58] LABS: ANCA Interpretation Negative (Negative)
== END 2021-10-19 13:51 | disposition home or self-care (01) ==
LOC: LBO 13:51
PROVIDERS: PCP Family Medicine; Visit Provider Surgery
DX: K55.8 Other vascular disorders of intestine (principal); R19.7 Diarrhea, unspecified
CPT/HCPCS: 36415; 86255; 86140

== ENCOUNTER 2021-10-28 00:40 | Outpatient (CLI) | payer OTHER, SELFPAY ==
--- NOTE | 2021-10-28 08:52 | DI.CT_ITS ---
Exam(s) CT ABDOMEN PELVIS CTA EXAM: CT ABDOMEN PELVIS CTA CLINICAL HISTORY: ischemic colitis in left upper colon,k55.9. TECHNIQUE: Imaging Protocol: Axial CT angiography was performed with multi-slice acquisition and m ulti-planar and/or 3D reconstructions. CONTRAST MATERIAL: Intravenous: Omnipaque 350 Contrast volume:100 cc Oral: no COMPARISON: CT CT ABDOMEN PELVIS W from 10/04/2021 FINDINGS: Vascular Structures: Arterial calcifications seen in splenic artery only. No dissection. Celiac [place]/SMA: No evidence of stenosis. Renal Arteries: No evidence of stenosis. There is a single renal artery perfusing each kidney. Aorta: No aneurysm. No dissection. Pelvis: No significant atherosclerotic changes visible. Iliac Arteries: No evidence of stenosis. Common Femoral Arteries: No evidence of stenosis. Soft Tissues: Lung bases:Minimal scarring or atelectasis left lower lobe. Liver: Normal density. No measurable mass. Gallbladder and biliary tract: No radiodense calculus or dilation. Pancreas: Normal density, no abnormal calcifications or inflammatory process. Spleen: Normal. Kidneys: Normal size, contour and axis. No radiodense stones or obstructive uropathy. No masses seen. Adrenal glands: No masses seen. Bladder: Symmetric distention, no gross wall thickening. Bowel: No obstruction or bowel wall thickening. Mild diverticulosis descending and sigmoid colon. No rmal quantity of stool. No evidence of colitis. Peritoneal cavity: No ascites, collection or mesenteric inflammatory response. Reproductive: Stable simple right ovarian cyst. Bones: Within normal limits for age. Mild degenerative changes.. Lymph nodes: Within normal limits. IMPRESSION: Mild atherosclerotic calcification is seen involving the splenic artery. Remainder of the vasculatur e shows no significant calcification, stenosis or dissection. Mild diverticulosis descending and sig moid colon. No evidence of colitis. RADIATION DOSE DELIVERED: 1,315.69mGy.cm Total DLP DATA REPOSITORY: All CT scans at this facility are submitted to the National Radiology Data Registry (NRDR) Dose Index Registry (DIR) with the [employer] (ACR). RADIATION OPTIMIZATION: All CT scans at this facility use at least one of these dose optimization te chniques: automated exposure control; mA and/or kV adjustment per patient size (includes targeted exa ms where dose is matched to clinical indication); or iterative reconstruction.
[2021-10-28] MEDS: Omnipaque 350 MG/ML 100 ML BTL IJ (09:04)
[2021-10-28 10:17] LABS: Calculated LDL 155 mg/dL (<100); Cholesterol 231 mg/dL (<200); HDL Cholesterol 56 mg/dL (40-60); Triglyceride 102 mg/dL (<150)
[2021-10-29 18:32] LABS: Myeloperoxidase Ab IgG <0.2 U
== END 2021-10-28 01:00 ==
PROVIDERS: PCP Family Medicine; Visit Provider Surgery
DX: K55.9 Vascular disorder of intestine, unspecified (principal); K57.32 Diverticulitis of large intestine without perforation or abscess without bleeding; I70.8 Atherosclerosis of other arteries
CPT/HCPCS: 80061; 74174; 83516; J3490

== ENCOUNTER 2021-11-15 15:35 | Emergency (ER) | payer OTHER, SELFPAY ==
[2021-11-15 15:40] VITALS: BP 130/77; PULSE 79; RESP 16; TEMP 36.7; O2SAT 97
--- NOTE | 2021-11-15 15:45 | DI.RAD_ITS ---
Exam(s) XR FOOT LT COMPLETE EXAM: XR FOOT LT COMPLETE CLINICAL HISTORY: Dorsum pain and swelling after trauma. TECHNIQUE: 2D digital imaging was performed. COMPARISON: CR XR FOOT LT COMPLETE from 10/16/2019 FINDINGS: 3 views No evidence of fracture nor diastasis of the Lisfranc joint. Bone density normal. No osseous lesion s. No erosions. Small inferior calcaneal spur noted. IMPRESSION: No fracture. DATA REPOSITORY: RADIATION DOSE DELIVERED:
--- NOTE | 2021-11-15 15:55 | ED.GENADUL_ITS ---
Discharge Plan Disposition Patient Disposition: HOME Condition: Stable Discharge Details Clinical Impression: Contusion of foot, left Primary Care Provider: Nikko Coffman ED Provider: Dane Lundberg Home Meds and New Rx's Prescriptions: Continued acetaminophen 500 mg capsule 500 mg PO QID PRN0RF IB guard PO 0RF dicyclomine 10 mg capsule 10 mg PO QID PRN (Reason: abdominal pain) Qty: 30 12RF fluticasone propionate [Flonase Allergy Relief] 9.9 ML spray,suspension 9.9 ml NS 2 SPRAYS QD 0RF aspirin [Adult Aspirin Regimen] 81 mg tablet,delayed release (DR/EC) 81 mg PO DAILY 0RF amlodipine [Norvasc] 5 MG tablet 10 mg PO DAILY 0RF magnesium oxide 400 mg magnesium Tablet 400 mg PO DAILY 0RF famotidine 40 mg tablet 40 mg PO HS 0RF Discharge Instructions Instructions: Foot Contusion (ED) Additional Instructions: Wear ankle walking boot as needed for comfort 3 to 7 days time. May remove well at home and at rest. Ice to area to reduce discomfort. You will likely have ongoing bruising as we discussed. Return to the emergency department for any acute concerns. Medical Decision Making Pleasant and delightful 61-year-old female presents from home with left foot pain and swelling after dropping wood on the dorsum of the left foot last night. The foot is ecchymotic and tender on exam, must exclude underlying bony injury and patient referred for x-ray. X-ray HPI General Date/Time Provider Initiated Documentation: 11/15/21 15:47 . Limitations to Documentation: no limitations . History of Present Illness 61 year old F presents to the emergency department with the chief complaint of Left foot pain, swelling and bruising, described as moderate, Quality is described as dull and constant, and is localized to the left and lower extremity. Patient reports no radiation. Patient started experiencing this hour(s) and it has been constant. improves with Rest improves symptom(s), Movement worsens symptoms . Patient notes no other symptoms.. Patient did receive the following treatments prior to arrival, cold therapy Related Data Home Medications Medication Instructions Recorded Confirmed amlodipine 5 mg tablet (Norvasc) 10 mg PO DAILY 11/19/12 11/15/21 fluticasone propionate 50 9.9 ml NS 2 SPRAYS QD 02/04/15 11/15/21 mcg/actuation nasal spray,suspension (Flonase Allergy Relief) acetaminophen 500 mg capsule 500 mg PO QID PRN 12/26/19 11/15/21 magnesium oxide 400 mg PO DAILY 12/23/20 11/15/21 famotidine 40 mg tablet 40 mg PO HS 06/02/21 11/15/21 IB guard PO 10/19/21 10/25/21 dicyclomine 10 mg capsule 10 mg PO QID PRN #30 cap 10/19/21 11/15/21 aspirin 81 mg tablet,delayed 81 mg PO DAILY 10/20/21 11/15/21 release (Adult Aspirin Regimen) Previous Rx's Medication Instructions Recorded dicyclomine 10 mg capsule 10 mg PO QID PRN #30 cap 10/19/21 Allergies Allergy/AdvReac Type Severity Reaction Status Date / Time clindamycin Allergy Intermediate Skin Rash Verified 11/15/21 15:42 Estrogens Allergy Intermediate Skin Rash Verified 11/15/21 15:42 Penicillins Allergy Intermediate Skin Rash Verified 11/15/21 15:42 gabapentin Allergy Psychosis Verified 11/15/21 15:42 hydrocodone [From Vicodin] AdvReac Intermediate Verified 11/15/21 15:42 General Stated Complaint: Orthopedic DREW: 4 Review of Systems Narrative: No other injury. Patient otherwise well. 4 systems reviewed and negative PFSH All Active Problems Contusion of foot, left (Acute) Bloody diarrhea (Acute) Ischemic colitis (Acute) Atrophic vaginitis (Acute 12/31/13) Carpal tunnel syndrome on both sides (Acute 02/05/15) Chronic rhinitis (Acute 08/19/16) Deviated nasal septum (Acute 03/25/16) Dyspareunia (Acute 05/17/17) Hypertrophy of inferior nasal turbinate (Acute 03/25/16) Mass of face (Acute 09/01/17) Mass of left ear auricle (Acute 07/21/17) Nasal congestion (Acute 03/25/16) Vaginal atrophy (Acute 01/01/15) Vitiligo (Acute 01/01/13) Contusion of left foot, initial encounter (Acute ~10/2019) Adhesive capsulitis of left shoulder (Acute) Scapular dyskinesis (Acute) Strain of cervical portion of left trapezius muscle (Acute) Tendonitis of long head of biceps brachii of right shoulder (Acute) Blood-tinged sputum (Acute) Post-nasal drip (Acute) Arthritis of right acromioclavicular joint (Acute) Bursitis of right shoulder (Acute) Impingement syndrome of right shoulder (Acute) Labral tear of hip joint (Acute) Trochanteric bursitis of right hip (Acute) Iliotibial band syndrome of right side (Acute) Epigastric pain (Acute) Status post arthroscopy of left shoulder (Acute 10/26/19) With biceps tenodesis Medical History Acid reflux Anxiety Arthritis of knee, right Arthritis of left acromioclavicular joint Depression Fatty liver GERD Hemorrhoids History of excessive cerumen Impingement syndrome of left shoulder Irritable bowel syndrome with constipation Migraine Seasonal allergic rhinitis Superior labrum dyfpviuo-ho-fsuswferk (SLAP) tear of left shoulder Tendinitis of long head of biceps brachii of left shoulder Vitiligo Surgical History Colon/endoscopy 07/2013 repeated negative endoscopy Diverticulosis colon done at [facility] Endometrial Ablation 2009 History of surgical removal of ganglion cyst x2, R foot, L hand Ligation of fallopian tube 1984 R trochanteric bursectomy with IT band tenotomy 07/2012 Sinus cyst removed 2007 Family History Other Heart disease Hyperlipidemia Personal history of malignant neoplasm Social History Smoking/Tobacco Use Status: Never Smoking risk assessment performed?: Yes Alcohol Intake: current Alcohol Intake frequency: holidays/special occasions only Alcohol type: beer Drug use: Never Substance use type: does not use Current gender identity: female Do you feel safe at home: Yes Do you feel safe in your relationship?: Yes Exam Narrative Exam Narrative: GEN: awake, alert, oriented 3. Pleasant, well groomed, interactive. HEAD: Normocephalic, atraumatic ENT: Mucous membranes moist, External ear exam unremarkable EYES: PERRL, EOMI EXT: Full ROM, left foot dorsum with bruising from toes to malleolus. Tender dorsum of the midfoot. Mild swelling present. Exam otherwise within normal li mits. Neuro: Grossly normal neurologic exam, conversant, interactive. Psych: Speech fluent, thoughts congruent, affect normal Course Vital Signs Vital signs: Vital Signs Temperature 36.7 C 11/15/21 15:40 Pulse 79 11/15/21 15:40 Respiratory Rate 16 11/15/21 15:40 Blood Pressure 130/77 11/15/21 15:40 Pulse Oximetry 97 11/15/21 15:40 Temperature 36.7 C 11/15/21 15:40 Temperature Source Skin 11/15/21 15:40 Pulse 79 11/15/21 15:40 Respiratory Rate 16 11/15/21 15:40 Respiratory Effort Non-Labored 11/15/21 15:43 Blood Pressure 130/77 11/15/21 15:40 Blood Pressure Position Sitting 11/15/21 15:40 Pulse Oximetry 97 11/15/21 15:40 Oxygen Delivery Method Room Air 11/15/21 15:40 Oxygen Flow Rate 0 11/15/21 15:40 Pain Level 5 11/15/21 15:40
--- NOTE | 2021-11-15 16:43 | DI.VRAD_ITS ---
PROCEDURE INFORMATION: Exam: XR Left Foot Exam date and time: 11/15/2021 3:56 PM Age: 61 years old Clinical indication: Other: Dorsum pain and swelling after trauma TECHNIQUE: Imaging protocol: XR Left foot. Views: 3 or more views. COMPARISON: CR XR FOOT LT COMPLETE 10/16/2019 2:21 PM FINDINGS: Bones/joints: No acute fracture or dislocation. Soft tissues: Normal. IMPRESSION: No acute findings. Dictated and Authenticated by: Dolores Melissa MD. Ordering:SERGIO Vela MD
== END 2021-11-15 17:33 | disposition home or self-care (01) ==
PROVIDERS: Emergency Provider Emergency Medicine; PCP Family Medicine
DX: S90.32XA Contusion of left foot, initial encounter (principal); W20.8XXA Other cause of strike by thrown, projected or falling object, initial encounter
CPT/HCPCS: 29515; 99283; 73630

== ENCOUNTER 2021-12-15 08:43 | Outpatient (CLI) | payer OTHER, SELFPAY ==
--- NOTE | 2021-12-15 08:00 | DI.RAD_ITS ---
Exam(s) XR SHOULDER RT COMPLETE 2+V EXAM: XR SHOULDER RT COMPLETE 2+V CLINICAL HISTORY: acute. TECHNIQUE: 2D digital imaging was performed of the right shoulder. Two images were obtained. AP, G rashey, Y-view and axillary views were obtained. COMPARISON: CR XR SHOULDER RT COMPLETE 2+V from 07/02/2020 FINDINGS: BONES: No acute fracture is present. No bony destructive lesion is seen. Interval postsurgical change s are seen in the proximal humerus. JOINTS: No dislocation present. SOFT TISSUE: Normal. IMPRESSION: Status post surgical changes in the proximal right humerus. DATA REPOSITORY: RADIATION DOSE DELIVERED:
== END 2021-12-15 08:44 | disposition home or self-care (01) ==
LOC: DIORS 08:43
PROVIDERS: PCP Family Medicine; Referring Provider Family Medicine; Visit Provider Physician Assistant Surgical
DX: M25.511 Pain in right shoulder; S49.81XA Other specified injuries of right shoulder and upper arm, initial encounter; Z98.890 Other specified postprocedural states
CPT/HCPCS: 73030

== ENCOUNTER 2022-01-26 16:36 | Emergency (ER) | payer OTHER, SELFPAY ==
[2022-01-26 16:53] VITALS: BP 118/77; PULSE 77; RESP 16; TEMP 36.5; O2SAT 99
--- NOTE | 2022-01-26 17:00 | DI.RAD_ITS ---
Exam(s) XR WRIST RT COMPLETE EXAM: XR WRIST RT COMPLETE CLINICAL HISTORY: pain post fall. TECHNIQUE: 2D digital imaging was performed of the right wrist. Three views were obtained. PA, lat eral and oblique views were obtained. COMPARISON: No exams were available for comparison FINDINGS: BONES: No acute fracture is present. No bony destructive lesion is seen. JOINTS: The carpal bones are normally aligned. SOFT TISSUE: Normal. IMPRESSION: Unremarkable radiographs of the right wrist. DATA REPOSITORY: RADIATION DOSE DELIVERED:
--- NOTE | 2022-01-26 17:00 | DI.RAD_ITS ---
Exam(s) XR SHOULDER RT COMPLETE 2+V EXAM: XR SHOULDER RT COMPLETE 2+V CLINICAL HISTORY: pain post fall. TECHNIQUE: 2D digital imaging was performed of the right shoulder. Five images were obtained. AP, Grashey, Y-view and axillary views were obtained. COMPARISON: CR XR SHOULDER RT COMPLETE 2+V from 12/15/2021 FINDINGS: BONES: No acute fracture is present. No bony destructive lesion is seen. JOINTS: No dislocation present. SOFT TISSUE: Normal. IMPRESSION: Unremarkable radiographs of the right shoulder. DATA REPOSITORY: RADIATION DOSE DELIVERED:
--- NOTE | 2022-01-26 17:42 | W.ED.GENAD ---
Discharge Plan Disposition Patient Disposition: HOME Condition: Stable Discharge Details Clinical Impression: Muscle strain of wrist, Contusion of shoulder Primary Care Provider: Nikko Coffman ED Provider: Silva Willis Home Meds and New Rx's Prescriptions: Continued multivitamin [Multiple Vitamins] Tablet 1 tab PO DAILY clobetasol 0.05 % ointment 1 applic topical .COMPLEX Qty: 15 1RF Rx Instructions: 1 applic topical Apply tiny amount to vulva daily; IB guard PO apple cider vinegar 1 tsp liquid PO DAILY Digestive Advantage Probio-Pre 800 million cell tablet PO multivitamin Tablet 1 tab PO DAILY fluticasone propionate [Flonase Allergy Relief] 9.9 ML spray,suspension 9.9 ml NS 2 SPRAYS QD aspirin [Adult Aspirin Regimen] 81 mg tablet,delayed release (DR/EC) 81 mg PO DAILY amlodipine [Norvasc] 5 MG tablet 10 mg PO DAILY magnesium oxide 400 mg magnesium Tablet 400 mg PO DAILY famotidine 40 mg tablet 40 mg PO HS Discharge Instructions Instructions: Muscle Strain (ED), Contusion in Adults (ED) Additional Instructions: Take Tylenol as needed for pain Repeat x-ray in 1 week with persistent symptoms Follow-up with Dr. Ricci at your scheduled appointment Return earlier should you have any strength or sensation change or with any new or worsening complaints Referrals: Nikko Coffman MD [Primary Care Provider] - Discharge Data Discharge Date/Time-TO BE ENTERED AT DEPARTURE: 01/26/22 18:08 Medical Decision Making Patient has negative shoulder and wrist x-rays per radiology interpretation in my review Has a sling at home, will wear this, discussed frozen shoulder precautions Has an appointment with orthopedics on Tuesday, she will keep this appointment Will take Tylenol and apply Voltaren gel as needed for pain Return precautions discussed and patient expressed understanding Medical Records Medical records reviewed: Yes I reviewed the patient's medical records. Lab Data Lab results reviewed: Yes I reviewed the patient's lab results. HPI General Date/Time Provider Initiated Documentation: 01/26/22 16:51. HPI Narrative: This 61-year-old female with history of ischemic colitis presents status post trip and fall. Had her shoulder and urinary complaints denies any loss of consciousness or any additional injuries. Denies any finger constipation change. Denies complaints of hours prior to arrival. She denies any head injury. She is otherwise reportedly healthy and denies history of anticoagulation. Related Data Home Medications Medication Instructions Recorded Confirmed amlodipine 5 mg tablet (Norvasc) 10 mg PO DAILY 11/19/12 01/26/22 fluticasone propionate 50 9.9 ml NS 2 SPRAYS QD 02/04/15 01/26/22 mcg/actuation nasal spray,suspension (Flonase Allergy Relief) magnesium oxide 400 mg PO DAILY 12/23/20 01/26/22 famotidine 40 mg tablet 40 mg PO HS 06/02/21 01/26/22 IB guard PO 10/19/21 01/15/22 aspirin 81 mg tablet,delayed 81 mg PO DAILY 10/20/21 01/15/22 release (Adult Aspirin Regimen) Bacillus coagulans 800 million cell PO 11/26/21 01/15/22 cell tablet (Digestive Advantage Probiotics-Prebiotic) apple cider vinegar PO DAILY 11/26/21 01/15/22 multivitamin 1 tab PO DAILY 11/26/21 01/26/22 clobetasol 0.05 % topical ointment 1 applic topical .COMPLEX #15 grams 12/03/21 01/26/22 multivitamin (Multiple Vitamins 1 tab PO DAILY 12/03/21 01/15/22 tablet) Previous Rx's Medication Instructions Recorded clobetasol 0.05 % topical ointment 1 applic topical .COMPLEX #15 grams 12/03/21 Allergies Allergy/AdvReac Type Severity Reaction Status Date / Time clindamycin Allergy Intermediate Skin Rash Verified 01/26/22 16:58 Estrogens Allergy Intermediate Skin Rash Verified 01/26/22 16:58 Penicillins Allergy Intermediate Skin Rash Verified 01/26/22 16:58 gabapentin Allergy Psychosis Verified 01/26/22 16:58 hydrocodone [From Vicodin] AdvReac Intermediate Verified 01/26/22 16:58 General Stated Complaint: Orthopedic DREW: 4 Review of Systems Narrative: Review of systems obtained x7 and negative presents for medication PFSH All Active Problems Muscle strain of wrist (Acute) Contusion of shoulder (Acute) Rotator cuff strain (Acute) Vulvodynia (Acute) IBS (irritable bowel syndrome) (Chronic) Bloody diarrhea (Acute) Ischemic colitis (Acute) Atrophic vaginitis (Acute 12/31/13) Carpal tunnel syndrome on both sides (Acute 02/05/15) Chronic rhinitis (Acute 08/19/16) Deviated nasal septum (Acute 03/25/16) Dyspareunia (Acute 05/17/17) Hypertrophy of inferior nasal turbinate (Acute 03/25/16) Mass of face (Acute 09/01/17) Mass of left ear auricle (Acute 07/21/17) Nasal congestion (Acute 03/25/16) Vaginal atrophy (Acute 01/01/15) Vitiligo (Acute 01/01/13) Contusion of left foot, initial encounter (Acute ~10/2019) Adhesive capsulitis of left shoulder (Acute) Scapular dyskinesis (Acute) Strain of cervical portion of left trapezius muscle (Acute) Tendonitis of long head of biceps brachii of right shoulder (Acute) s/p biceps tenodesis 06/05/2021 - pain over surgical button site. Blood-tinged sputum (Acute) Post-nasal drip (Acute) Arthritis of right acromioclavicular joint (Acute) Bursitis of right shoulder (Acute) Impingement syndrome of right shoulder (Acute) Labral tear of hip joint (Acute) Trochanteric bursitis of right hip (Acute) Iliotibial band syndrome of right side (Acute) Epigastric pain (Acute) Status post arthroscopy of left shoulder (Acute 10/26/19) With biceps tenodesis Medical History Acid reflux Anxiety Arthritis of knee, right Arthritis of left acromioclavicular joint Depression Fatty liver GERD Hemorrhoids History of excessive cerumen Impingement syndrome of left shoulder Irritable bowel syndrome with constipation Migraine Seasonal allergic rhinitis Superior labrum czpseymm-zg-[id number] (SLAP) tear of left shoulder Tendinitis of long head of biceps brachii of left shoulder Vitiligo Surgical History Colon/endoscopy 07/2013 repeated negative endoscopy Diverticulosis colon done at [facility] Endometrial Ablation 2008 History of surgical removal of ganglion cyst x2, R foot, L hand Ligation of fallopian tube 1984 R trochanteric bursectomy with IT band tenotomy 07/2012 Sinus cyst removed 2006 Family History Other Heart disease Hyperlipidemia Personal history of malignant neoplasm Social History (Updated 12/25/21 @ 20:21 by Kimberly Curtis MD) Smoking/Tobacco Use Status: Never Smoking risk assessment performed?: Yes Alcohol Intake: current Alcohol Intake frequency: holidays/special occasions only Alcohol type: beer Drug use: Never Substance use type: does not use Household members: spouse and other Details: H- Chirag. Number of Children: 2 current occupation: self employed - cleaning business. Current gender identity: female Do you feel safe at home: Yes Do you feel safe in your relationship?: Yes History History 2 Para 2 Hx # Term Pregnancies Multiple births Hx # Pregnancies Ectopic pregnancies AB induced Hx Number of Living Children AB spontaneous Exam Const General: cooperative, comfortable and no acute distress HENMT Head: normal to inspection Neck Other: No midline tenderness Resp Effort & Inspection: normal respiratory effort Extrem Other: Right shoulder with mild tenderness, no obvious deformity Right wrist with mild tenderness, no obvious deformity No tenderness to right elbow Course Vital Signs Vital signs: Vital Signs Temperature 36.5 C 01/26/22 16:53 Pulse 77 01/26/22 16:53 Respiratory Rate 16 01/26/22 16:53 Blood Pressure 118/77 01/26/22 16:53 Pulse Oximetry 99 01/26/22 16:53 Temperature 36.5 C 01/26/22 16:53 Pulse 77 01/26/22 16:53 Respiratory Rate 16 01/26/22 16:53 Respiratory Effort 01/26/22 16:59 Blood Pressure 118/77 01/26/22 16:53 Pulse Oximetry 99 01/26/22 16:53 Pain Level 4 01/26/22 16:53
--- NOTE | 2022-01-26 17:43 | DI.VRAD_ITS ---
PROCEDURE INFORMATION: Exam: XR Right Wrist Exam date and time: 01/26/2022 5:24 PM Age: 61 years old Clinical indication: Injury or trauma; Fall; Sprain or strain; Wrist; Right TECHNIQUE: Imaging protocol: XR Right wrist. Views: 3 or more views. COMPARISON: MR UPPER JOINT RT WO 04/28/2021 8:11 AM FINDINGS: Bones/joints: No acute fracture or dislocation. Soft tissues: Unremarkable. IMPRESSION: No acute fracture or dislocation. Dictated and Authenticated by: Moustapha Moctezuma MD. Ordering:NOEL Ascencio MD
--- NOTE | 2022-01-26 17:44 | DI.VRAD_ITS ---
PROCEDURE INFORMATION: Exam: XR Right Shoulder Exam date and time: 01/26/2022 5:26 PM Age: 61 years old Clinical indication: Injury or trauma; Fall; Sprain or strain; Shoulder; Right; Prior surgery; Surgery date: 1-6 months TECHNIQUE: Imaging protocol: XR Right shoulder. Views: 2 or more views. COMPARISON: CR XR SHOULDER RT COMPLETE 2+V 12/15/2021 8:37 AM FINDINGS: Bones/joints: Spalding seen along the proximal humerus. No acute fracture or dislocation. Soft tissues: Unremarkable. IMPRESSION: No acute findings. Dictated and Authenticated by: Moustapha Moctezuma MD. Ordering:NEOL Ascencio MD
[2022-01-26 18:08] VITALS: BP 116/72; PULSE 62; RESP 16; O2SAT 99
== END 2022-01-26 18:08 | disposition home or self-care (01) ==
PROVIDERS: Emergency Provider Physician Assistant; PCP Family Medicine
DX: S60.211A Contusion of right wrist, initial encounter (principal); W01.198A Fall on same level from slipping, tripping and stumbling with subsequent striking against other object, initial encounter
CPT/HCPCS: 99284; 73030; 73110; 99283

== ENCOUNTER → 2022-03-09 01:58 | Outpatient (CLI) | payer OTHER, SELFPAY ==
--- NOTE | 2022-03-09 07:45 | DI.MRI_ITS ---
Exam(s) MR UPPER JOINT RT WO EXAM: MR UPPER JOINT RT WO CLINICAL HISTORY: R SHOULDER PAIn,impingement syndrome,bursitis,arthritis, tendonitis,strain TECHNIQUE: Multiplanar multisequence MRI of the shoulder was performed. COMPARISON: MR MR UPPER JOINT RT WO from 04/28/2021 CR,XR XR SHOULDER RT COMPLETE 2+V from 01/26/2022 FINDINGS: There is susceptibility artifact in the proximal diaphysis of humerus, this related to the metallic p late at this level from prior biceps tenodesis. MARROW:There is no evidence of fracture, Hill-Sachs deformity, nor ominous osseous lesions. ROTATOR CUFF MECHANISM: AC JOINT/ACROMIUM: Minimal degenerative no significant impingement.. There is no evidence of os acromiale. Supraspinatus: Prominent tendinitis signal involving entire supraspinatus. Superimposed areas of tea ring with fluid in the overlying subdeltoid bursa. Infraspinatus: Intact. No evidence of tear nor muscle atrophy. Teres Minor: Intact. No evidence of tear nor muscle atrophy. Subscapularis/anterior cuff: Intact. No abnormal signal at the level of the multipennate insertional fibers. No significant tear nor atrophy. BICEPS TENDON: Attenuated-previously torn in this patient with tenodesis LABRUM: There is thin fluid signal interposed between the superior labrum and osseous glenoid. Poste rior labrum is intact. Anterior labrum appears intact. Inferior labrum appears intact and there is no evidence of osseous Bankart lesion. GLENOHUMERAL JOINT: Mild degenerative changes. Element of joint effusion which extends into the medi al recess subcoracoid. No loose intra-articular bodies no degenerative subarticular cysts. QUADRILATERAL SPACE: No evidence of mass in the region of the axillary nerve and dorsal circumflex hu meral vessels. Visualized triceps muscle at this level appears unremarkable. IMPRESSION: 1. There is evidence of proximal diaphysis biceps tenodesis. 2. Tear of the superior labrum. No paralabral cyst. 3. Advanced tendinitis-tendinosis signal in the supraspinatus tendon with areas of full-thickness tea ring and fluid in the subdeltoid bursa. Infraspinatus and teres minor are intact. Anterior cuff-subscapularis also intact. DATA REPOSITORY:
== END ==
PROVIDERS: PCP Family Medicine; Visit Provider Student in an Organized Health Care Education/Training Program
DX: M19.011 Primary osteoarthritis, right shoulder (principal); M75.21 Bicipital tendinitis, right shoulder; M75.41 Impingement syndrome of right shoulder; M75.51 Bursitis of right shoulder; S43.431A Superior glenoid labrum lesion of right shoulder, initial encounter; M75.121 Complete rotator cuff tear or rupture of right shoulder, not specified as traumatic; S46.011A Strain of muscle(s) and tendon(s) of the rotator cuff of right shoulder, initial encounter; X58.XXXA Exposure to other specified factors, initial encounter
CPT/HCPCS: 73221

== ENCOUNTER 2022-05-03 19:49 | Emergency (ER) | payer OTHER, SELFPAY ==
[2022-05-03 19:52] VITALS: BP 148/78; PULSE 84; RESP 16; TEMP 36.6; O2SAT 96
--- NOTE | 2022-05-03 20:00 | W.ED.GENAD ---
Discharge Plan Disposition Patient Disposition: HOME Condition: Stable Discharge Details Clinical Impression: Hematoma of left lower leg Primary Care Provider: Nikko Coffman ED Provider: Vineet Castellano Home Meds and New Rx's Prescriptions: Continued clobetasol 0.05 % ointment 1 applic topical .COMPLEX Qty: 15 1RF Rx Instructions: 1 applic topical Apply tiny amount to vulva daily; IB guard PO apple cider vinegar 1 tsp liquid PO DAILY Digestive Advantage Probio-Pre 800 million cell tablet PO multivitamin Tablet 1 tab PO DAILY fluticasone propionate [Flonase Allergy Relief] 9.9 ML spray,suspension 9.9 ml NS 2 SPRAYS QD amlodipine [Norvasc] 5 MG tablet 10 mg PO DAILY magnesium oxide 400 mg magnesium Tablet 400 mg PO DAILY famotidine 40 mg tablet 40 mg PO HS Discharge Instructions Instructions: Hematoma (ED) Additional Instructions: Rest, elevate, cool compresses every 2 hours for 20 minutes. Please watch for new or worsening symptoms and return to the ER for any concerns. We did discuss setting you up for an ultrasound tomorrow which you have declined. Please contact your primary care provider tomorrow to discuss your ER visit and need for outpatient reevaluation. Medical Decision Making This is a 62-year-old female who reports 1 week ago she tripped striking the left anterior aspect of her lower leg, subsequently the area has become slightly more swollen and painful and she noticed some bruising to the medial aspect of her foot although there is no swelling or tenderness there. She denies injury to her foot. Patient states that as a 16-year-old female she ended up having a blood clot after severe trauma and is concerned this could be the same. She denies anticoagulation, chest pain, shortness of breath, calf pain. Clinically she appears well, nontoxic, pulse in the 80s, O2 sat 96% on room air. I do believe this is likely a hematoma with subsequent bruising of the foot likely because of gravity from the original injury. We discussed although low suspicion for acute DVT we could certainly set her up for an ultrasound tomorrow. She does not feel as though this is necessary and declines. She would like to proceed with conservative measures such as resting, elevating, cool compresses, etc. and will return to the ER for worsening symptoms otherwise will follow up with her PCP. Standard discharge and return precautions were provided. Patient understands, is agreeable to this plan, and has no additional questions or concerns upon discharge. This documentation was generated using [employer] dictation system, please disregard any oddities of phrase or misspellings. Medical Records Medical records reviewed: Yes I reviewed the patient's medical records. HPI General Mode of arrival: ambulatory. Date/Time Provider Initiated Documentation: 05/03/22 19:50. Limitations to Documentation: no limitations. Information obtained by: patient. History of Present Illness 62 year old F presents to the emergency department with the chief complaint of R lower leg pain, described as moderate, with intensity rated at 4. Quality is described as aching, and is localized to the right and lower extremity. Patient reports no radiation. Patient started experiencing this week(s) (1) and it has been constant. No relieving factors improve symptom(s), No exacerbating factors reported . Patient notes no other symptoms.. Patient did receive the following treatments prior to arrival, none Related Data Home Medications Medication Instructions Recorded Confirmed amlodipine 5 mg tablet (Norvasc) 10 mg PO DAILY 11/19/12 05/03/22 fluticasone propionate 50 9.9 ml NS 2 SPRAYS QD 02/04/15 05/03/22 mcg/actuation nasal spray,suspension (Flonase Allergy Relief) magnesium oxide 400 mg PO DAILY 12/23/20 05/03/22 famotidine 40 mg tablet 40 mg PO HS 06/02/21 05/03/22 IB guard PO 10/19/21 03/24/22 Bacillus coagulans 800 million cell PO 11/26/21 03/24/22 cell tablet (Digestive Advantage Probiotics-Prebiotic) apple cider vinegar PO DAILY 11/26/21 03/24/22 multivitamin 1 tab PO DAILY 11/26/21 05/03/22 clobetasol 0.05 % topical ointment 1 applic topical .COMPLEX #15 grams 12/03/21 05/03/22 Previous Rx's Medication Instructions Recorded clobetasol 0.05 % topical ointment 1 applic topical .COMPLEX #15 grams 12/03/21 Allergies Allergy/AdvReac Type Severity Reaction Status Date / Time clindamycin Allergy Intermediate Skin Rash Verified 05/03/22 19:56 Estrogens Allergy Intermediate Skin Rash Verified 05/03/22 19:56 Penicillins Allergy Intermediate Skin Rash Verified 05/03/22 19:56 gabapentin Allergy Psychosis Verified 05/03/22 19:56 hydrocodone [From Vicodin] AdvReac Intermediate Verified 05/03/22 19:56 General Stated Complaint: Orthopedic DREW: 4 Review of Systems Constitutional Constitutional: Denies fever(s) and Denies weakness Cardiovascular Cardiovascular: Denies chest pain and Denies dyspnea Respiratory Respiratory: Denies cough and Denies dyspnea Musculoskeletal Musculoskeletal: Denies arthralgias, Denies numbness, Denies stiffness and Denies tingling Integumentary/Breasts Skin/Breast: Denies erythema Neurologic Neurologic: Denies numbness, Denies tingling and Denies weakness Hematologic/Lymphatic Hematologic/Lymphatic: Denies easy bleeding and Denies easy bruising PFSH All Active Problems Hematoma of left lower leg (Acute) Right wrist sprain (Acute) Rotator cuff strain (Acute) Vulvodynia (Acute) IBS (irritable bowel syndrome) (Chronic) Bloody diarrhea (Acute) Ischemic colitis (Acute) Atrophic vaginitis (Acute 12/31/13) Carpal tunnel syndrome on both sides (Acute 02/05/15) Chronic rhinitis (Acute 08/19/16) Deviated nasal septum (Acute 03/25/16) Dyspareunia (Acute 05/17/17) Hypertrophy of inferior nasal turbinate (Acute 03/25/16) Mass of face (Acute 09/01/17) Mass of left ear auricle (Acute 07/21/17) Nasal congestion (Acute 03/25/16) Vaginal atrophy (Acute 01/01/15) Vitiligo (Acute 01/01/13) Contusion of left foot, initial encounter (Acute ~10/2019) Scapular dyskinesis (Acute) Strain of cervical portion of left trapezius muscle (Acute) Blood-tinged sputum (Acute) Post-nasal drip (Acute) Labral tear of hip joint (Acute) Trochanteric bursitis of right hip (Acute) Iliotibial band syndrome of right side (Acute) Epigastric pain (Acute) Status post arthroscopy of left shoulder (Acute 10/26/19) With biceps tenodesis Medical History Acid reflux Adhesive capsulitis of left shoulder Anxiety Arthritis of knee, right Arthritis of left acromioclavicular joint Arthritis of right acromioclavicular joint Bursitis of right shoulder Depression Fatty liver GERD Hemorrhoids History of excessive cerumen Impingement syndrome of left shoulder Impingement syndrome of right shoulder Irritable bowel syndrome with constipation Migraine Seasonal allergic rhinitis Superior labrum iyggkacd-pn-yiwpdyfpe (SLAP) tear of left shoulder Tendinitis of long head of biceps brachii of left shoulder Tendonitis of long head of biceps brachii of right shoulder s/p biceps tenodesis 06/05/2021 - pain over surgical button site. Vitiligo Surgical History Colon/endoscopy 2009 07/2013 repeated negative endoscopy Diverticulosis colon done at [facility] Endometrial Ablation 2009 History of surgical removal of ganglion cyst x2, R foot, L hand Ligation of fallopian tube 1984 R trochanteric bursectomy with IT band tenotomy 07/2012 Sinus cyst removed 2006 Status post arthroscopy of right shoulder (06/05/21) Status post open biceps tenodesis, extensive debridement, arthroscopic distal clavicle excision, subacromial decompression with partial acromioplasty Dr. Ricci Family History Other Heart disease Hyperlipidemia Personal history of malignant neoplasm Social History Smoking/Tobacco Use Status: Never Smoking risk assessment performed?: Yes Alcohol Intake: current Alcohol Intake frequency: holidays/special occasions only Alcohol type: beer Drug use: Never Substance use type: does not use Household members: spouse and other Details: H- Chirag. Number of Children: 2 current occupation: self employed - cleaning business. Current gender identity: female Do you feel safe at home: Yes Do you feel safe in your relationship?: Yes History History 2 Para 2 Hx # Term Pregnancies Multiple births Hx # Pregnancies Ectopic pregnancies AB induced Hx Number of Living Children AB spontaneous Exam Const General: cooperative, healthy appearing, comfortable and no acute distress Orientation: alert and awake HENMT Head: normal to inspection, normocephalic and atraumatic Eyes Conjunctivae: conjunctivae normal Neck Neck: normal visual inspection, trachea midline and supple Resp Effort & Inspection: normal respiratory effort and able to speak in complete sentences Auscultation: clear to auscultation bilaterally Cardio Rate: regular rate Rhythm: regular rhythm Skin General skin exam: no rashes or lesions noted Neuro General: patient alert, patient awake, moves all extremities and no focal motor deficits Cognition: normal cognition Speech: speech normal Gait: normal gait Motor: muscle tone normal throughout Sensory Exam: no sensory deficits noted Extrem General: full ROM and capillary refill normal Upper/lower leg/hip images: 1. Hematoma, local swelling, tenderness, ecchymosis. 2. Ecchymosis just inferior to the medial malleolus. Nontender, no swelling. Other: Calf is supple. Normal capillary refill and dorsalis pedal pulse. Negative Homans' sign. Psych Appearance: grossly normal Mental Status: mental status grossly normal Course Vital Signs Vital signs: Vital Signs Temperature 36.6 C 05/03/22 19:52 Pulse 84 05/03/22 19:52 Respiratory Rate 16 05/03/22 19:52 Blood Pressure 148/78 H 05/03/22 19:52 Pulse Oximetry 96 05/03/22 19:52 Temperature 36.6 C 05/03/22 19:52 Temperature Source Temporal Artery Scan 05/03/22 19:52 Pulse 84 05/03/22 19:52 Respiratory Rate 16 05/03/22 19:52 Respiratory Effort 05/03/22 19:52 Blood Pressure 148/78 H 05/03/22 19:52 Blood Pressure Position Sitting 05/03/22 19:52 Pulse Oximetry 96 05/03/22 19:52 Oxygen Delivery Method Room Air 05/03/22 19:52 Oxygen Flow Rate 0 05/03/22 19:52 Pain Level 5 05/03/22 19:52
== END 2022-05-03 22:30 | disposition home or self-care (01) ==
PROVIDERS: Emergency Provider Physician Assistant; PCP Family Medicine
DX: S80.12XA Contusion of left lower leg, initial encounter (principal); W18.40XA Slipping, tripping and stumbling without falling, unspecified, initial encounter; W22.8XXA Striking against or struck by other objects, initial encounter
CPT/HCPCS: 99281; 99282

== ENCOUNTER 2022-05-20 15:29 | Outpatient (REF) | payer OTHER, SELFPAY ==
[2022-05-23 14:04] LABS: HIV-1/2 Ag & Ab Screen Negative (Negative)
== END 2022-05-20 15:30 | disposition home or self-care (01) ==
LOC: NCHCN 15:29
PROVIDERS: PCP Family Medicine; Visit Provider Nurse Practitioner Family
DX: Z11.4 Encounter for screening for human immunodeficiency virus [HIV] (principal)
CPT/HCPCS: 87389

== ENCOUNTER → 2022-06-24 03:18 | Outpatient (CLI) | payer OTHER, SELFPAY ==
--- NOTE | 2022-06-24 | DI.MAMMO_ITS ---
Exam(s) MAMMO SCREENING EXAM: MAMMO SCREENING CLINICAL HISTORY: SCREENING, Z12.31 TECHNIQUE: Mammograms were interpreted according to the usual protocol including computer analysis w [employer] CAD system, tomosynthesis and C-view imaging. COMPARISON: FINDINGS: The breasts are of moderate density with fairly symmetrical distribution of fibroglandular tissue. N o dominant mass or clumped microcalcification is identified in either breast. The current examinatio n is compared with previous examinations including May 2021 and there his been question of incr eased prominence of a nodular appearing area of asymmetric density projected in the lateral central p ortion of the right breast on CC view. Additional mammographic views of this area are requested to i nclude a CC spot compression view of the right breast. No other significant change seen in comparison with prior examinations . IMPRESSION: Additional mammographic views of the right breast requested as described above. Breast ultrasound ma y be indicated as well depending on the results of the additional mammographic views. BI-RADS Category 0 - Assessment Incomplete: Need additional imaging evaluation Breast Density - Category B - Scattered areas of fibroglandular density
== END ==
PROVIDERS: PCP Family Medicine; Visit Provider Nurse Practitioner Family
DX: Z12.31 Encounter for screening mammogram for malignant neoplasm of breast (principal); R92.8 Other abnormal and inconclusive findings on diagnostic imaging of breast
CPT/HCPCS: 77063; 77067

== ENCOUNTER → 2022-07-02 00:41 | Outpatient (CLI) | payer OTHER, SELFPAY ==
--- NOTE | 2022-07-02 09:30 | DI.MAMMO_ITS ---
Exam(s) MG MAMMO SCREEN CALL BACK UNI US BREAST RT LIMITED EXAM: MG MAMMO SCREEN CALL BACK UNI and U/S breast RT limited CLINICAL HISTORY: F/U ABNL MAMMO, ? INCREASED PROMINENCE OF ASYMMETRIC DENSITY RT BREAST. TECHNIQUE: Craniocaudal and mediolateral oblique Full Field Digital Mammography views of the right b reast with Computer Aided Diagnosis followed by Tomosynthesis and right breast ultrasound. COMPARISON: Comparison is made with prior examinations. FINDINGS: Mammography/Tomosynthesis: Masses/Architectural Distortion: The area of concern is less prominent on the additional views. No s uspicious masses or areas of architectural distortion are identified. Microcalcifictions: No suspicious pleomorphic-type are seen. Skin Thickening/Nipple Retraction: None. Limited right breast US: Echotexture: Normal appearance of the glandular tissue. Shadowing: No suspicious foci. Cyst: None. Solid lesions: There is benign-appearing lymph node at the 9 o'clock position of the right breast 9 c m from the nipple. Ductal dilation: None. IMPRESSION: 1. No evidence of malignancy is noted. 2. A six-month follow-up right mammogram is requested for re-evaluation. 3. The findings were discussed with the patient on the date of the examination. BI-RADS Category 3 - 6 month - Probably Benign Finding: Recommend follow-up imaging in 6 months Breast Density - Category B - Scattered areas of fibroglandular density Breast density Category C or D implies that the patient has dense breast tissue. Dense breast tissue can make it harder to find cancer on a mammogram. Dense breast tissue is also associated with an incr eased risk of breast cancer. This information about the result of the mammogram report was provided to the patient to raise their awareness. Use this report when you speak with the patient about their risks for breast cancer, which includes their family history. At that time, you may recommend additional screening tests (Ultrasoun d or MRI) as these tests may add significant information. A negative radiographic report should not delay biopsy if a dominant or clinically suspicious mass is present. Up to ten percent of cancers are not identified on mammography. A negative report may reinforce clinical impression. Adenosis and dense breasts may obscure an underlying neoplasm. False positive reports average 6 to 10%. Patient will receive a letter notifying them of these results.
== END ==
PROVIDERS: PCP Family Medicine; Visit Provider Nurse Practitioner Family
DX: Z12.31 Encounter for screening mammogram for malignant neoplasm of breast (principal); R92.8 Other abnormal and inconclusive findings on diagnostic imaging of breast
CPT/HCPCS: 76642; 77063; 77067

== ENCOUNTER 2022-11-11 01:58 | Outpatient (CLI) | payer OTHER, SELFPAY ==
--- NOTE | 2022-11-11 07:00 | DI.MRI_ITS ---
Exam(s) MR LOWER JOINT RT WO EXAM: MR LOWER JOINT RT WO CLINICAL HISTORY: R HIP PAIN, ? LABRAL TEAR,TROCHANTERIC BURSITIS, ILIOTIBIAL BAND SYNDROME TECHNIQUE: Multiplanar multisequence MRI of Pelvis was performed COMPARISON: MR MR lower joint RT wo from 05/17/2018 CR XR HIP RT COMPLETE AP PELVIS from 05/12/[address] ABDOMEN PELVIS W from 10/04/2021 FINDINGS: Bones: There is no fracture or contusion pattern. No bone marrow edema is seen. Small cyst in latera l right greater trochanter. Joints: No significant joint effusion. Labrum difficult to evaluate without surrounding fluid or cont rast.. The SI joints and symphysis pubis are well maintained. Musculotendinous structures: Mild edema in gluteus medius tendon. Small amount fluid in the trochante griselda bursa.. Intrapelvic structures: Sigmoid diverticulosis. Uterine fibroid. Stable size simple appearing right o varian cysts. Bladder unremarkable. IMPRESSION: Mild trochanteric bursitis and gluteus medius tendinitis. DATA REPOSITORY:
== END 2022-11-11 02:18 ==
PROVIDERS: PCP Family Medicine; Visit Provider Student in an Organized Health Care Education/Training Program
DX: M70.61 Trochanteric bursitis, right hip (principal); M76.31 Iliotibial band syndrome, right leg; S73.199A Other sprain of unspecified hip, initial encounter; X58.XXXA Exposure to other specified factors, initial encounter; M76.01 Gluteal tendinitis, right hip
CPT/HCPCS: 73721

== ENCOUNTER 2022-11-16 16:45 | Outpatient (REF) | payer OTHER, SELFPAY ==
[2022-11-16 20:46] LABS: Abs Immature Grans 0.02 10^3/uL (0.0-0.06); Absolute Basophil Count 0.05 10^3/uL (0.0-0.2); Absolute Eosinophil Count 0.18 10^3/uL (0.0-0.7); Absolute Lymphocyte Count 1.81 10^3/uL (1.2-3.4); Absolute Monocyte Count 0.62 10^3/uL (0.1-0.8); Absolute Neutrophil Count 5.07 10^3/uL (1.2-6.7); Basophils % 0.6; Eosinophils % 2.3; HCT 39.7 % (36.0-46.0); Immature Grans % 0.3; Lymphocytes % 23.4; MCH 29.7 pg (27.0-33.0); MCHC 32.7 % (32.0-36.0); MCV 91 fL (80-95); MPV 10.7 fL (8.0-11.0); Neutrophils % 65.4; Platelet Count 366 10^3/uL (130-400); RBC 4.38 10^6/uL (3.93-5.22); RDW 13.2 % (11.7-14.6); RDW-SD 43.7 fL; WBC 7.75 10^3/uL (4.4-10.8)
[2022-11-16 21:21] LABS: ALT 29 U/L (14-59); AST 17 U/L (15-37); Albumin 4.4 g/dL (3.4-5.0); Alkaline Phosphatase 97 U/L (46-116); Anion Gap 11.5 mmol/L (3-11); BUN 18 mg/dL (7-18); Bilirubin, Total 0.3 mg/dL (0.2-1.0); CO2 27.5 mmol/L (21.0-32.0); CREATININE 0.9 mg/dL (0.55-1.02); Calcium 9.8 mg/dL (8.5-10.1); Chloride 103 mmol/L (98-107); Estimated GFR 71.39 (mL/min/1.73m2); Glucose 91 mg/dL (74-106); Magnesium 2.3 mg/dL (1.8-2.4); Sodium 142 mmol/L (136-145); Total Protein 8.1 g/dL (6.4-8.2); Vitamin B12 971 pg/mL (193-986)
== END 2022-11-16 16:46 | disposition home or self-care (01) ==
LOC: NCHCN 16:45
PROVIDERS: PCP Family Medicine; Visit Provider Nurse Practitioner Family
DX: G43.909 Migraine, unspecified, not intractable, without status migrainosus (principal); K76.0 Fatty (change of) liver, not elsewhere classified; K58.9 Irritable bowel syndrome, unspecified; I87.2 Venous insufficiency (chronic) (peripheral); R25.2 Cramp and spasm; F41.8 Other specified anxiety disorders
CPT/HCPCS: 80053; 82607; 83735; 85025

== ENCOUNTER 2023-01-06 01:17 | Outpatient (CLI) | payer OTHER, SELFPAY ==
--- NOTE | 2023-01-06 14:03 | DI.RAD_ITS ---
Exam(s) RF JOINT INJECTION FLUORO GUID EXAM: RF JOINT INJECTION FLUORO GUID CLINICAL HISTORY: R HIP INJ UNDER FLUORO,RT HIP PAIN,RT HIP TROCHANTER BURSITIS,M70.61, TECHNIQUE: 2D and realtime digital imaging was performed. CONTRAST MATERIAL: Refer to procedure report. COMPARISON: No exams were available for comparison FINDINGS: Fluoroscopy was provided for Dr. Garcia during the performance of a right hip injection. Please r efer to the procedure report for complete details. Kar=0.23 mGy IMPRESSION: RADIATION DOSE DELIVERED:
[2023-01-06] MEDS: methylPREDNISolone ACETATE 80 MG/ML VIAL IM (14:05)
[2023-01-06] MEDS: Omnipaque 300 MG/ML 10 ML BTL 1.5 ML IJ (14:06)
[2023-01-06] MEDS: Bupivacaine 0.5% Pres-Free 10 ML VIAL 5 ML IJ (14:06)
--- NOTE | 2023-01-06 15:03 | W.PROCNOTE ---
Date of service: 01/06/23 Time of Service: 13:15 Procedure Note Date of procedure: 01/06/23 Procedure: Right Hip Injection with Fluoroscopic Guidance Surgeon/Proceduralist/Physician: Maciej Garcia Procedure Diagnosis: Right Hip Pain Procedure Indications: Estela has had persistent pain of the RIGHT hip and groin. Noninvasive measures have been tried. To serve as both diagnostic and therapeutic, an injection under fluoroscopy was recommended. I had discussed the risks of the procedure and the patient elected to proceed. Procedure Description: Estela was greeted in the flouroscopy room. The correct side was identified and the consent was reviewed with the patient and signed. The patient was then placed in the supine position on the fluoroscopy table. The RIGHT hip was then prepped with Chloraprep. The anterolateral injection starting point was identiifed by bony landmarks and fluoroscopy. The skin and soft tissue in the tract of the injection was anesthetized with 1% Lidocaine. A spinal needle was then inserted deep into the hip joint at the level of the lateral femoral neck under fluoroscopic guidance. A small amount of Omnipaque solution was injected to confirm intraarticular placement. Once confirmed, the hip was injected with 5cc of 0.5% Bupivicaine and 80mg of Depo-Medrol. A bandaid was placed on the injection site. The patient tolerated the procedure well.
== END 2023-01-06 01:37 ==
LOC: DI 01:17
PROVIDERS: PCP Family Medicine; Visit Provider Student in an Organized Health Care Education/Training Program
DX: M25.551 Pain in right hip (principal)
CPT/HCPCS: 20610; 77002; J1040

== ENCOUNTER 2023-01-11 01:53 | Outpatient (CLI) | payer OTHER, SELFPAY ==
--- NOTE | 2023-01-11 | DI.MAMMO_ITS ---
Exam(s) MG MAMMO DIAGNOSTIC UNI EXAM: MAMMO DIAGNOSTIC UNI -RIGHT CLINICAL HISTORY: DIAGOSTIC, 6 MO F/U, F/U ABNL MAMMO, R92.8,ASYMMETRIC DENSITY, LYMPH NODE. TECHNIQUE: BOTH CC AND MLO RIGHT BREAST mammographic images were obtained with 3D tomosynthesis tech nique and utilizing computer aided detection (CAD). COMPARISON: Prior mammograms were reviewed, the most recent being June 2022.. Ultrasound of June 2022 also reviewed. FINDINGS: Diagnostic right breast mammogram: There has been no significant change in appearance and distribution of fibroglandular tissue. Small benign-appearing nodule at approximately 6 o'clock position noted on 3D cc image which has appearance of benign intramammary lymph node. The nodular density described on the mammogram of June 1022 is actually less evident on the presen t conventional views. There are no malignant-appearing microcalcification groups in the right breast and there is no new ar chitectural distortion or skin thickening-traction. IMPRESSION: Benign findings. No radiographic evidence of malignancy in the right breast Appropriate follow-up is to keep this patient on her yearly mammogram schedule, with earlier imaging if a self detected breast change is noted. The patient was informed of the findings and follow-up recommendations prior to leaving the [facility] today. BI-RADS Category 2 - Benign Findings Breast Density - Category C - Heterogeneously dense Breast density Category C or D implies that the patient has dense breast tissue. Dense breast tissue can make it harder to find cancer on a mammogram. Dense breast tissue is also associated with an incr eased risk of breast cancer. This information about the result of the mammogram report was provided to the patient to raise their awareness. Use this report when you speak with the patient about their risks for breast cancer, which includes their family history. At that time, you may recommend additional screening tests (Ultrasoun d or MRI) as these tests may add significant information. A negative radiographic report should not delay biopsy if a dominant or clinically suspicious mass is present. Up to ten percent of cancers are not identified on mammography. A negative report may reinforce clinical impression. Adenosis and dense breasts may obscure an underlying neoplasm. False positive reports average 6 to 10%. Patient will receive a letter notifying them of these results.
== END 2023-01-11 02:13 ==
LOC: DI 01:53
PROVIDERS: PCP Family Medicine; Visit Provider Nurse Practitioner Family
DX: R92.8 Other abnormal and inconclusive findings on diagnostic imaging of breast (principal)
CPT/HCPCS: 77061; 77065; G0279

== ENCOUNTER 2023-05-20 18:27 | Outpatient (REF) | payer MEDICARE, OTHER, SELFPAY ==
[2023-05-20 20:45] LABS: Abs Immature Grans 0.01 10^3/uL (0.0-0.06); Absolute Basophil Count 0.04 10^3/uL (0.0-0.2); Absolute Eosinophil Count 0.22 10^3/uL (0.0-0.7); Absolute Lymphocyte Count 1.43 10^3/uL (1.2-3.4); Absolute Monocyte Count 0.48 10^3/uL (0.1-0.8); Absolute Neutrophil Count 3.41 10^3/uL (1.2-6.7); Basophils % 0.7; Eosinophils % 3.9; HCT 38.1 % (36.0-46.0); HGB 12.2 g/dL (11.2-15.7); Immature Grans % 0.2; Lymphocytes % 25.6; MCH 29.5 pg (27.0-33.0); MCV 92 fL (80-95); MPV 10.4 fL (8.0-11.0); Monocytes % 8.6; Platelet Count 291 10^3/uL (130-400); RBC 4.13 10^6/uL (3.93-5.22); RDW 13.2 % (11.7-14.6); WBC 5.59 10^3/uL (4.4-10.8)
[2023-05-20 21:01] LABS: Iron 63 ug/dL (50-170); Total Iron Binding Capacity 320 ug/dL (250-450); Transferrin Sat 20 % (15-50)
[2023-05-20 21:14] LABS: Ferritin 103 ng/mL (8-252); Magnesium 2.2 mg/dL (1.8-2.4); TSH (W/Ref FT4) 1.17 uIU/mL (0.36-3.74)
--- NOTE | 2023-05-21 15:30 | PAPFT_PTH ---
PATIENT: Estela Singh LOC: [facility]#:[id number] AGE/SX: 63/F ROOM: RE05/20/[address]: Ilsa Thakur : 1960 BED: DIS: 05/20/2023 SPEC #: [id number] RECD: 05/23/23 13:15 STATUS: PRABHJOT RELina #: [id number] ANNELIESE: 05/21/23 15:[address]: Ilsa Thakur DEPT: [facility] Cytology RECD BY: Silva No ENTERED: 05/23/23 13:16 SP TYPE: PAPFT EJ DR: Nikko Coffman Tissues: 1 - CX/ENDOCX FOR PAP SMEARS Procedures: PAP THIN PREP/UVM Screening HPV DNA PROBE Comments: [id number]
== END 2023-05-20 18:28 | disposition home or self-care (01) ==
LOC: NCHCN 18:27
PROVIDERS: PCP Family Medicine; Visit Provider Nurse Practitioner Family
DX: K76.0 Fatty (change of) liver, not elsewhere classified (principal); R25.2 Cramp and spasm; J31.0 Chronic rhinitis; Z12.4 Encounter for screening for malignant neoplasm of cervix; Z11.51 Encounter for screening for human papillomavirus (HPV)
CPT/HCPCS: 88142; 82728; 83540; 83550; 83735; 84443; 85025; 87624

== ENCOUNTER → 2023-06-09 03:42 | Outpatient (CLI) | payer MEDICARE, OTHER, SELFPAY ==
--- NOTE | 2023-06-09 | DI.DEXA_ITS ---
Exam(s) XR DEXA BONE DENSITY W/WO RONALD EXAM: XR DEXA BONE DENSITY W/WO RONALD CLINICAL HISTORY: POSTMENOPAUSAL Z78.0 TECHNIQUE: Routine DEXA evaluation of the lumbar spine, hip, or forearm. COMPARISON: No exams were available for comparison FINDINGS: Performed on a Hologic unit. Lateral image: No compression fracture evident. Lumbar Spine total T-score: -2.0 Hip total T-score:-0.9 Independent reading at the level of the femoral neck yields T-score of -1.9 Forearm total T-score: -2.1 IMPRESSION: Bone mineral density measures in the osteopenia range. Fracture risk is moderate. Note: Any spine fracture indicates 5x risk for subsequent spine fracture and 2x risk for subsequent h ip fracture. World Health Organization criteria for BMD interpretation classify patients: Normal...... T- Score at or above -1.0 Osteopenic... T- Score between -1.0 and -2.5 Osteoporosis... T-Score at or below -2.5
== END ==
PROVIDERS: PCP Family Medicine; Visit Provider Nurse Practitioner Family
DX: Z78.0 Asymptomatic menopausal state (principal); Z13.820 Encounter for screening for osteoporosis; M81.0 Age-related osteoporosis without current pathological fracture
CPT/HCPCS: 77080

== ENCOUNTER → 2023-06-30 03:22 | Outpatient (CLI) | payer MEDICARE, OTHER, SELFPAY ==
--- NOTE | 2023-06-30 | DI.MAMMO_ITS ---
Exam(s) MAMMO SCREENING EXAM: MAMMO SCREENING CLINICAL HISTORY: SCREENING, Z12.31 TECHNIQUE: Mammograms were interpreted according to the usual protocol including computer analysis w [employer] CAD system, tomosynthesis and C-view imaging. COMPARISON: 2013 through 2022 FINDINGS: The breasts are composed of scattered fibroglandular densities, Breast Density category B. No suspicious masses or suspicious microcalcifications are seen. No skin thickening or abnormal axillary lymph nodes are seen. There has been no significant change from prior exams. IMPRESSION: BI-RADS Category 1, Negative mammogram Yearly screening mammography is recommended. Breast Density - Category B, scattered fibroglandular densities. A negative radiographic report should not delay biopsy if a dominant or clinically suspicious mass is present. Up to ten percent of cancers are not identified on mammography. A negative report may reinforce clinical impression. Adenosis and dense breasts may obscure an underlying neoplasm. False positive reports average 6 to 10%. Patient will receive a letter notifying them of these results.
== END ==
PROVIDERS: PCP Nurse Practitioner Family; Visit Provider Nurse Practitioner Family
DX: Z12.31 Encounter for screening mammogram for malignant neoplasm of breast (principal); R92.8 Other abnormal and inconclusive findings on diagnostic imaging of breast
CPT/HCPCS: 77063; 77067

== ENCOUNTER 2023-08-31 18:05 | Outpatient (REF) | payer MEDICARE, OTHER, SELFPAY ==
--- OUTSIDE RECORDS SUMMARY | 2023-08-31 18:07 | XMS_ITS | Continuity of Care Document ---
Author Name Unknown Organization [facility] Address [address] [place] [address] Care Team Providers Care String Laster Name Role Phone Karina Markham Primary Care Physician Encounter [facility] [id number] Date(s): 10/22/22 - 10/22/22 [facility] [address] [place] [address] Encounter Diagnosis Obstructive sleep apnea, adult(Discharge Diagnosis) - 10/22/22 Discharge Disposition: Home or Self Care Attending Physician: Zara Gaona CINNAMON GRINDER Allergies, Adverse Reactions, Alerts Substance Reaction Severity Status clindamycin Unknown Active gabapentin Unknown Active penicillins Unknown Active Problem List Condition Confirmation Course Effective Dates Status Health St at[facility] Informant Obstructive sleep apnea, adult Confirmed Active Social History Social History Type Response Sex Female Polysomnography (sleep) study * Red Serna: PERFORM Event Display: Sleep Study Authored Date: [id number] * Red Serna: PERFORM Event Display: Sleep Study Authored Date: [id number] Progress note * Red Serna: PERFORM Event Display: Progress Note - Physician Authored Date: [id number] Physician Outpatient Note * Zara Gaona CINNAMON GRINDER: PERFORM Event Display: Office Clinic Note Physician Authored Date: [id number] DEBI MOSLEY :1960 Age:62 years Sex:Female Visit Date:10/22/2022 Primary Care Physician: Karina Markham MD History of Present Illness Debi Mosley has a Zoom visit for KADEN follow-up. She has given consent to have a telehealth visit. Patient is at home, provider is in the office. ?? Debi was seen by me on 11/16/2021. She has a history of PTSD, anxiety, IBS, migraine, vitiligo, diverticulosis, allergic rhinitis and dyspepsia. ?? PSG 07/21/2006 (BMI 23), sleep efficiency 64%, AHI 4/hr, REM AHI 27/hr, reduced REM sleep at 9%, PLMi ???normal?? , 02 shara 89%. ?? She noted symptoms of loud snoring with witnessed apnea, morning headaches, nocturia and excessive daytime sleepiness (ESS 15) despite getting 7-8 hours of sleep a night. ?? PSG 03/07/19 (BMI 22.46). Sleep efficiency was 63%, AHI 10.4/hr, RDI 17.3/hr, REM AHI 30.4/hr, REM RDI 30.4/hr, supine AHI 14/hr, right lateral AHI 0/hr, left lateral AHI N/A, sp02 shara 75%, 5 minuteswere spent at a saturation <88%, arousal index 12/hr, PLMi 0/hr, PLM arousal index 0/hr. EKG NSR. ?? Titration 06/08/19 (BMI 21.96), sleep efficiency 64%, CPAP titrated from 5 to 8 cm, CPAP 5 cm was successful in supine sleep and CPAP 8 cm was successful in REM sleep, arousal index 11/hr, PLMi 1.3/hr, PLMai 0.4/hr. EKG NSR, CPAP 5-10 cm recommended. ?? Last visit she was using CPAP??5-10 cm (Airfit P30) with good compliance and reduction in AHI. Kavon she is using her CPAP every night. She tolerates her mask well with only rare leaking. The airpressure feels perfect. She gets to bed around 10-11 pm, she falls asleep easily. She wakes up 1/night to urinate and she gets right back to sleep. She gets up at 6-7 am to start her day. She is not napping. She is not snoring with CPAP that she is aware of. She is not waking choking or gasping.?? Her weight has been stable. She is getting supplies as needed. Her sleep is better quality and she feels less tired when using CPAP. ? ESS today 02/26 COMPLIANCE DATA REVIEWED WITH PATIENT: Dates 09/22/22-10/21/22,??Days used??, average use??5 hours, 28 minutes,??median pressure 7.1??cm,??95 th percentile pressure??8.7 cm,??95 th percentile air leak 7.2??lpm, AHI 2.1/hr Assessment/Plan 1.??Obstructive sleep apnea, adult??G47.33 KADEN diagnosed in 2019 with an AHI of 10.4/hr. She is using CPAP 5-10 cm. She has good compliance and reduction in AHI. She benefits from CPAP and continued use is recommended. She is advised to keep up with the routine maintenance of the machine and to clean/replace parts as needed. I will see her back in one year. She is asked to call our office for any sleep related questions or concerns. I provided greater than 20 minutes in the care of this patient, more than half the time was spent in hwox-se-vrip counseling. Ordered: Follow-Up Appointment Request DONG, *Est. 10/22/23 +/- 28 days, Future Order, In [facility] ?? Problem List/Past Medical History Ongoing Obstructive sleep apnea, adult Historical No qualifying data Medications No active medications Allergies clindamycin gabapentin penicillins Electronically Signed on 10/22/22 12:16 PM Zara Gaona NP * Red Serna M: PERFORM Event Display: Office Clinic Note Physician Authored Date: [id number] Patient Name DEBI MOSLEY (61yo, F) ID# [id number] Appt. Date/Time 11/16/2021 09:30AM 1960 Service Dept. P_Sleep Medicine Provider ZARA GAONA NP Insurance Med Primary: [employer] Insurance # : [id number] Policy/Group # : [id number] Prescription: [facility] - Member is eligible. details Chief Complaint None recorded. Patient's Care Team Sleep Medicine: ZARA GAONA NP Other: [facility]: [address], [place] [address], , Primary Care Provider: KARINA MARKHAM MD: [facility] [address], [place] [address], , Patient's Pharmacies [facility] ([facility]-ORDER, ERX): [address] [place] [address], , [facility] (ERX): [address] [place] [id number], , Vitals Ht: 5 ft 5 in Stated (165.1 cm) 11/16/2021 09:28 am Wt: 140 lbs Stated (63.5 kg) 11/16/2021 09:28 am BMI: 23.3 11/16/2021 09:28 am BP: 118/76 11/16/2021 09:32 am Pulse: 71 bpm 11/16/2021 09:32 am O2Sat: 98% 11/16/2021 09:32 am Allergies Reviewed Allergies CLINDAMYCIN GABAPENTIN PENICILLINS Medications Reviewed Medications amLODIPine 10 mg tablet Take 1 tablet(s) every day by oral route for 90 days. 09/16/21 filled surescripts aspirin 81 mg tablet,delayed release TAKE ONE TABLET BY MOUTH EVERY DAY TO PREVENT BLOOD CLOT 06/05/[address] - ER 3 mg capsule,delayed,extended release TAKE THREE CAPSULES BY MOUTH EVERY DAY FOR 14 DAYS 10/07/21 filled surescripts esomeprazole magnesium 20 mg capsule,delayed release TAKE ONE CAPSULE BY MOUTH EVERY DAY 05/09/21 filled surescripts famotidine 20 mg tablet Take 1 tablet(s) every day by oral route for 90 days. 09/18/20 filled surescripts famotidine 40 mg tablet TAKE ONE TABLET BY MOUTH EVERY EVENING 10/15/21 filled surescripts fluticasone propionate 50 mcg/actuation nasal spray,suspension uses as needed 06/02/20 filled [facility] mesalamine 1.2 gram tablet,delayed release TAKE TWO TABLETS BY MOUTH EVERY DAY 10/07/21 filled surescripts naproxen 250 mg tablet TAKE ONE TO TWO TABLETS BY MOUTH TWICE A DAY NEEDED FOR MODERATE PAIN OR SWELLING 06/05/21 filled surescripts oxyCODONE 5 mg tablet TAKE ONE TO TWO TABLETS BY MOUTH EVERY 4 HOURS NEEDED FOR MODERATE TO SEVERE PAIN 06/05/21 filled surescripts pantoprazole 20 mg tablet,delayed release TAKE ONE TABLET BY MOUTH EVERY DAY; MAY INCRESAE TO 2 DAILY IF NOT EFFECTIVE AFTER 1 WEEK 03/26/21 filled surescripts Probiotic every other day 08/31/19 entered LATONIA Pickering sucralfate 1 gram tablet TAKE ONE TABLET BY MOUTH BEFORE MEALS AND AT BEDTIME FOUR TIMES A DAY 05/03/21 filled surescripts prebiotoic Vaccines None recorded. Problems Reviewed Problems Obstructive sleep apnea syndrome - PSG 03/07/19 AHI 10.4, 02 75%, CPAP 5-10 cm [facility]- Inguinal pain Irritable bowel syndrome Chronic back pain Indigestion Excessive daytime sleepiness - normal night sleep - Onset: 02/21/2019 Venous insufficiency of leg - Right Ankle pain, Right Headache Panic disorder with agoraphobia Nasal mucosa dry Posttraumatic stress disorder Anxiety Vitiligo Allergic rhinitis Snoring - Onset: 02/21/2019 Diverticulosis of intestine Globus sensation Skin lesion Social History Reviewed Social History Education and Occupation Are you currently employed?: Yes 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) Substance Use Do you or have you ever smoked tobacco?: Never smoker What was the date of your most recent tobacco screening?: 02/21/2019 What is your level of alcohol consumption?: Moderate (Notes: 1-3 drinks/week) What is your level of caffeine consumption?: (Notes: Coffee: 1 cup/day,tea Soda: 0-1 per week) Activities of Daily Living Are you blind or do you have difficulty seeing?: No (Notes: wears glasses, vision corrected with lenses) Other Animal exposure?: No Hard of hearing or deaf in one or both ears?: No Live alone or with others?: with others (Notes: spouse, 2 children, 3 step children) Gender Identity and LGBTQ Identity Screening Name Score Notes [place] Sleepiness 8 HPI Debi Mosley has a visit for KADEN follow-up. Debi was seen by me on 12/05/20. She has a history of PTSD, anxiety, IBS, migraine, vitiligo, diverticulosis, allergic rhinitis and dyspepsia. PSG 07/21/2006 (BMI 23), sleep efficiency 64%, AHI 4/hr, REM AHI 27/hr, reduced REM sleep at 9%, PLMi ???normal?? , 02 shara 89%. She noted symptoms of loud snoring with witnessed apnea, morning headaches, nocturia and excessive daytime sleepiness (ESS 15) despite getting 7-8 hours of sleep a night. PSG 03/07/19 (BMI 22.46). Sleep efficiency was 63%, AHI 10.4/hr, RDI 17.3/hr, REM AHI 30.4/hr, REM RDI 30.4/hr, supine AHI 14/hr, right lateral AHI 0/hr, left lateral AHI N/A, sp02 shara 75%, 5 minuteswere spent at a saturation <88%, arousal index 12/hr, PLMi 0/hr, PLM arousal index 0/hr. EKG NSR. Titration 06/08/19 (BMI 21.96), sleep efficiency 64%, CPAP titrated from 5 to 8 cm, CPAP 5 cm was successful in supine sleep and CPAP 8 cm was successful in REM sleep, arousal index 11/hr, PLMi 1.3/hr, PLMai 0.4/hr. EKG NSR, CPAP 5-10 cm recommended. Last visit she was using CPAP 8-12 cm (Airfit P30) about 5 hours a night. AHI was at goal. In March she called with several complaints, dry mouth, stuff in back of throat, and more indigestion. Wonders if pressure is too high. I looked at her compliance data for the past month and her data looks essentially identical as to when I last saw her and things were going well. I suggested she try a chin strap (from [employer]) for the dry mouth and OTC products like Act for Dry Mouth. For possible PND I suggested she try an OTC nasal spray like Flonase. I put in an order to lower pressure to5-10 cm as this should also help dry mouth and the pressure feeling too much. Debi says things are going a lot better with the lower pressure and with the [employer] Airsense. Shestopped using CPAP for about a month when she learned about the recall and she was feeling lightheaded and dizzy. She felt better when she got back on CPAP. She wakes feeling more refreshed with CPAP. She uses nasal pillows and tolerates these well. She sleeps in chair for 1-2 hours many days then moves to the bed and applies CPAP and falls asleepeasily. She wakes 1-2/night to urinate and she gets right back to sleep. She gets up at 7 am to start her day. She is not napping. She is not snoring. She is not waking choking or gasping. She deniesmorning headaches or night sweats. ESS today 04/28 COMPLIANCE DATA REVIEWED WITH PATIENT: 10/12/21-11/10/21, Used /30 days, average use 5 hours 47 minutes a night, median pressure 7.2cm, 95 th percentile pressure 9cm, 95 th percentile air leak 8.6 lpm,AHI 1.9/hour. ROS ROS as noted in the HPI Physical Exam Patient is a 61-year-old female. General: A&O, well groomed normal weight. HEAD: normocephalic & atraumatic. EYES: non icteric. LUNGS: CTA all cope. Good air movement. CARDIO: RRR without murmur, gallop or thrill. NEURO: A&O. Normal gait. PSYCH: Normal mood and affect. CUTANEOUS: no overt lesions or rashes Assessment / Plan 1. Obstructive sleep apnea syndrome - KADEN with an AHI of 10.4/hr. She has been using CPAP 5-10 cm. She has great compliance and an excellent reduction in AHI. She feels better rested with CPAP and continued use of CPAP is recommended. She hs only occasional dry mouth and I suggested she increase humidity and if needed add OTC product like Act For Dry Mouth. She is encouraged to keep up with the routine maintenance of the machine and to clean and replace parts as indicated. I will see her back in one year. She is asked to call the clinic for any sleep related questions or concerns. I provided greater than 30 minutes in the care of this patient, more than half the time was spent in rlao-vh-[id number] counseling. G47.33: Obstructive sleep apnea (adult) (pediatric) Return to Office to see ZARA GAONA NP at P_Sleep Medicine on or around 11/16/2022 Electronically Signed on 10/22/22 07:51 AM Red Serna Patient Care team information Care Team Personnel Name: Karina Markham MD Position: No Access Member Role: Primary Care Physician Address: Address: [address] [address]- [place]
[2023-08-31 20:56] LABS: Source Nasal/Nares
[2023-08-31 22:35] LABS: COVID-19 PCR Negative (Negative)
== END 2023-08-31 18:06 | disposition home or self-care (01) ==
LOC: LBN 18:05
PROVIDERS: PCP Nurse Practitioner Family; Visit Provider Physician Assistant Medical
DX: J02.9 Acute pharyngitis, unspecified (principal); Z20.822 Contact with and (suspected) exposure to COVID-19
CPT/HCPCS: 87635; 87070

== ENCOUNTER → 2023-11-01 03:01 | Outpatient (CLI) | payer MEDICARE, OTHER, SELFPAY ==
--- NOTE | 2023-11-01 08:20 | DI.US_ITS ---
Exam(s) US ABDOMEN LIMITED EXAM: US ABDOMEN LIMITED CLINICAL HISTORY: K76.0 Fatty(change of) liver, not elsewhere classified TECHNIQUE: Ultrasound abdomen performed using standard protocol. COMPARISON: US US ABDOMEN LIMITED from 12/02/2022 FINDINGS: PANCREAS: Normal where visualized. LIVER: There is increased echogenicity of the liver consistent with fatty infiltration. There is a c oarsened echotexture of the liver. No mass is seen. Hepatopetal flow in the Portal Vein. The liver measures in 14.3 cm length. GALLBLADDER: No evidence of cholelithiasis. No evidence of wall thickening. No pericholecystic fluid identified. BILIARY SYSTEM: Common bile duct measures < 7 mm. No intrahepatic biliary ductal dilation. BALDWIN'S SIGN: Negative. RIGHT KIDNEY: Kidney is normal in size. No evidence of renal calculi. No evidence of hydronephrosis. No renal mass or cyst identified. ASCITES: None seen. IMPRESSION: Diffuse fatty infiltration of the liver. No evidence of a hepatic mass sonographically. DATA REPOSITORY:
== END ==
PROVIDERS: PCP Nurse Practitioner Family; Visit Provider Nurse Practitioner Family
DX: K76.0 Fatty (change of) liver, not elsewhere classified (principal)
CPT/HCPCS: 76705

== ENCOUNTER 2023-11-16 14:37 | Outpatient (REF) | payer MEDICARE, OTHER, SELFPAY ==
[2023-11-16 14:20] LABS: Abs Immature Grans 0.01 10^3/uL (0.0-0.06); Absolute Basophil Count 0.06 10^3/uL (0.0-0.2); Absolute Eosinophil Count 0.25 10^3/uL (0.0-0.7); Absolute Lymphocyte Count 1.62 10^3/uL (1.2-3.4); Absolute Monocyte Count 0.33 10^3/uL (0.1-0.8); Absolute Neutrophil Count 2.21 10^3/uL (1.2-6.7); Basophils % 1.3; Eosinophils % 5.6; HCT 40.2 % (36.0-46.0); HGB 13.1 g/dL (11.2-15.7); Immature Grans % 0.2; Lymphocytes % 36.2; MCH 28.9 pg (27.0-33.0); MCHC 32.6 % (32.0-36.0); MCV 89 fL (80-95); MPV 11.2 fL (8.0-11.0); Monocytes % 7.4; Neutrophils % 49.3; Platelet Count 272 10^3/uL (130-400); RBC 4.54 10^6/uL (3.93-5.22); RDW 13.2 % (11.7-14.6); WBC 4.48 10^3/uL (4.4-10.8)
[2023-11-16 14:40] LABS: ALT 27 U/L (14-59); AST 22 U/L (15-37); Albumin 4.4 g/dL (3.4-5.0); Alkaline Phosphatase 88 U/L (46-116); Anion Gap 13.2 mmol/L (3-11); BUN 22 mg/dL (7-18); Bilirubin, Total 0.5 mg/dL (0.2-1.0); CO2 25.8 mmol/L (21.0-32.0); CREATININE 0.9 mg/dL (0.55-1.02); Calcium 9.7 mg/dL (8.5-10.1); Calculated LDL 175 mg/dL (<100); Chloride 105 mmol/L (98-107); Cholesterol 270 mg/dL (<200); Estimated GFR 70.95 (mL/min/1.73m2); Glucose 108 mg/dL (74-106); HDL Cholesterol 60 mg/dL (40-60); Magnesium 2.3 mg/dL (1.8-2.4); Potassium 4.7 mmol/L (3.5-5.1); Sodium 144 mmol/L (136-145); Triglyceride 177 mg/dL (<150)
[2023-11-16 14:56] LABS: Vitamin D 25 Total 23.9 ng/mL (30-100)
== END 2023-11-16 14:38 | disposition home or self-care (01) ==
LOC: NCHCN 14:37
PROVIDERS: PCP Nurse Practitioner Family; Referring Provider Nurse Practitioner Family; Visit Provider Nurse Practitioner Family
DX: K76.0 Fatty (change of) liver, not elsewhere classified (principal); M85.80 Other specified disorders of bone density and structure, unspecified site
CPT/HCPCS: 80053; 80061; 82306; 83735; 85025

== ENCOUNTER 2024-07-03 13:15 | Outpatient (CLI) | payer MEDICARE, OTHER, SELFPAY ==
--- NOTE | 2024-07-03 08:45 | DI.RAD_ITS ---
Exam(s) XR HIP RT COMPLETE AP PELVIS EXAM: XR HIP RT COMPLETE AP PELVIS CLINICAL HISTORY: RIGHT HIP PAIN. TECHNIQUE: 2D digital imaging was performed. Two views COMPARISON: CR XR HIP RT COMPLETE AP PELVIS from 05/12/2021 CR XR DEXA BONE DENSITY W/WO RONALD from 06/09/2023 FINDINGS: BONES: No acute fracture is present. No bony destructive lesion is seen. JOINTS: No dislocation present. Hip joint spaces are maintained. Minimal acetabular spurring. Mil d spurring at the SI joints and pubic symphysis. SOFT TISSUE: Normal. IMPRESSION: No acute abnormality. Mild degenerative changes. DATA REPOSITORY: RADIATION DOSE DELIVERED:
== END 2024-07-03 13:16 | disposition home or self-care (01) ==
LOC: DIORS 13:15
PROVIDERS: PCP Nurse Practitioner Family; Referring Provider Nurse Practitioner Family; Visit Provider Student in an Organized Health Care Education/Training Program
DX: M70.71 Other bursitis of hip, right hip (principal); M70.61 Trochanteric bursitis, right hip; M76.31 Iliotibial band syndrome, right leg; S73.191A Other sprain of right hip, initial encounter; X58.XXXA Exposure to other specified factors, initial encounter
CPT/HCPCS: 99213; 73502

== ENCOUNTER 2024-07-05 02:23 | Outpatient (CLI) | payer MEDICARE, OTHER, SELFPAY ==
--- NOTE | 2024-07-05 13:03 | DI.MAMMO_ITS ---
Exam(s) MAMMO SCREENING EXAM: MAMMO SCREENING CLINICAL HISTORY: Screening, Z12.31 TECHNIQUE: Mammograms were interpreted according to the usual protocol including computer analysis w [employer] CAD system, tomosynthesis and C-view imaging. COMPARISON: 2014 through all 2022 FINDINGS: The breasts are composed of scattered fibroglandular densities, Breast Density category B. No suspicious masses or suspicious microcalcifications are seen. No skin thickening or abnormal axillary lymph nodes are seen. There has been no significant change from prior exams. IMPRESSION: BI-RADS Category 1, Negative mammogram Yearly screening mammography is recommended. Breast Density - Category B, scattered fibroglandular densities. A negative radiographic report should not delay biopsy if a dominant or clinically suspicious mass is present. Up to ten percent of cancers are not identified on mammography. A negative report may reinforce clinical impression. Adenosis and dense breasts may obscure an underlying neoplasm. False positive reports average 6 to 10%. Patient will receive a letter notifying them of these results.
== END 2024-07-05 02:43 ==
PROVIDERS: PCP Nurse Practitioner Family; Visit Provider Nurse Practitioner Family
DX: Z12.31 Encounter for screening mammogram for malignant neoplasm of breast (principal)
CPT/HCPCS: 77063; 77067

== ENCOUNTER → 2024-07-27 08:10 | Outpatient (BNVA) | payer MEDICARE, OTHER, SELFPAY | PROVIDERS: PCP Nurse Practitioner Family; Referring Provider Nurse Practitioner Family | DX: S73.191A Other sprain of right hip, initial encounter (principal); X58.XXXA Exposure to other specified factors, initial encounter; M70.71 Other bursitis of hip, right hip | CPT/HCPCS: 20611; J1010 ==

== ENCOUNTER → 2024-09-03 07:56 | Outpatient (BNVA) | payer MEDICARE, OTHER, SELFPAY | PROVIDERS: PCP Nurse Practitioner Family; Referring Provider Nurse Practitioner Family; Visit Provider Student in an Organized Health Care Education/Training Program | DX: M16.11 Unilateral primary osteoarthritis, right hip (principal); S73.191A Other sprain of right hip, initial encounter; X58.XXXA Exposure to other specified factors, initial encounter | CPT/HCPCS: 99214 ==

== ENCOUNTER 2024-10-03 03:10 | Outpatient (CLI) | payer MEDICARE, OTHER, SELFPAY ==
--- NOTE | 2024-10-03 | DI.US_ITS ---
Exam(s) US ABDOMEN LIMITED EXAM: US ABDOMEN LIMITED CLINICAL HISTORY: Steatosis of liver, K76.0 TECHNIQUE: Ultrasound abdomen performed using standard protocol. COMPARISON: US US ABDOMEN LIMITED from 11/01/2023 FINDINGS: PANCREAS: Normal where visualized. LIVER: There is diffuse increased echogenicity of the liver consistent with fatty infiltration. Hepa topetal flow in the Portal Vein. The liver measures in 14.0 cm length. No evidence of a hepatic mass. GALLBLADDER: No evidence of cholelithiasis. No evidence of wall thickening. No pericholecystic fluid identified. BILIARY SYSTEM: Common bile duct measures < 7 mm. No intrahepatic biliary ductal dilation. BALDWIN'S SIGN: Negative. RIGHT KIDNEY: Kidney is normal in size. No evidence of renal calculi. No evidence of hydronephrosis. No renal mass or cyst identified. ASCITES: None seen. IMPRESSION: Hepatic steatosis. No sonographic evidence of a hepatic mass. DATA REPOSITORY:
== END 2024-10-03 03:30 ==
PROVIDERS: PCP Nurse Practitioner Family; Visit Provider Nurse Practitioner Family
DX: K76.0 Fatty (change of) liver, not elsewhere classified (principal)
CPT/HCPCS: 76705

== ENCOUNTER 2024-10-29 10:05 | Outpatient (REF) | payer MEDICARE, OTHER, SELFPAY ==
[2024-10-29 15:41] LABS: Abs Immature Grans 0.01 10^3/uL (0.0-0.06); Absolute Basophil Count 0.05 10^3/uL (0.0-0.2); Absolute Eosinophil Count 0.24 10^3/uL (0.0-0.7); Absolute Lymphocyte Count 1.72 10^3/uL (1.2-3.4); Absolute Monocyte Count 0.47 10^3/uL (0.1-0.8); Absolute Neutrophil Count 2.57 10^3/uL (1.2-6.7); Eosinophils % 4.7 %; HCT 39.6 % (36.0-46.0); HGB 12.9 g/dL (11.2-15.7); Immature Grans % 0.2 %; MCH 29.3 pg (27.0-33.0); MCHC 32.6 % (32.0-36.0); MCV 90 fL (80-95); MPV 11.1 fL (8.0-11.0); Monocytes % 9.3 %; Neutrophils % 50.8 %; Platelet Count 306 10^3/uL (130-400); RDW 13.1 % (11.7-14.6); RDW-SD 43.5 fL; WBC 5.06 10^3/uL (4.4-10.8)
[2024-10-29 16:15] LABS: Iron 85 ug/dL (50-170); Total Iron Binding Capacity 319 ug/dL (250-450); Transferrin Sat 27 % (15-50)
[2024-10-29 16:49] LABS: ALT 37 U/L (14-59); AST 21 U/L (15-37); Albumin 4.4 g/dL (3.4-5.0); Alkaline Phosphatase 91 U/L (46-116); Anion Gap 9.3 mmol/L (3-11); BUN 16 mg/dL (7-18); CO2 28.7 mmol/L (21.0-32.0); CREATININE 0.9 mg/dL (0.55-1.02); Calcium 9.7 mg/dL (8.5-10.1); Calculated LDL 171 mg/dL (<100); Chloride 108 mmol/L (98-107); Cholesterol 286 mg/dL (<200); Estimated GFR 70.51 (mL/min/1.73m2); Ferritin 113 ng/mL (8-252); Glucose 103 mg/dL (74-106); HDL Cholesterol 65 mg/dL (40-60); Magnesium 2.4 mg/dL (1.8-2.4); Potassium 4.3 mmol/L (3.5-5.1); Sodium 146 mmol/L (136-145); TSH (W/Ref FT4) 2.99 uIU/mL (0.36-3.74); Total Protein 7.9 g/dL (6.4-8.2); Triglyceride 254 mg/dL (<150); Vitamin B12 669 pg/mL (193-986); Vitamin D 25 Total 48.2 ng/mL (30-100)
[2024-10-30 10:55] LABS: Transferrin 267 mg/dL (201-352)
== END 2024-10-29 10:06 | disposition home or self-care (01) ==
LOC: NCHCN 10:05
PROVIDERS: PCP Nurse Practitioner Family; Visit Provider Nurse Practitioner Family
DX: E78.5 Hyperlipidemia, unspecified (principal); K30 Functional dyspepsia; M85.80 Other specified disorders of bone density and structure, unspecified site
CPT/HCPCS: 80053; 80061; 82306; 82607; 82728; 83540; 83550; 83735; 84443; 84466; 85025

== ENCOUNTER 2024-11-06 05:57 | Day surgery (SDC) | payer MEDICARE, OTHER, SELFPAY ==
[2024-11-06] VITALS (25 sets, daily range): BP systolic 101–149; BP diastolic 51–94; PULSE 68–95; RESP 11–25; TEMP 36.4–36.9; O2SAT 95–98; BMI 23.1
[2024-11-06] MEDS: Acetaminophen 500 MG TAB 1000 MG PO (06:51)
[2024-11-06] MEDS: Celecoxib 200 MG CAP 400 MG PO (06:51)
[2024-11-06] MEDS: Lactated Ringers 1,000 ML 80 ML IV (07:05)
--- NOTE | 2024-11-06 07:14 | ANES.PREOP_ITS ---
General Info Date of Service Date Performed: 11/06/24 Height: 5 ft 5 in Weight: 63.2 kg Body Mass Index (BMI): 23.1 Surgical Procedure: Operation Date: 11/06/24 07:50 Proposed Procedure Side Surgeon p Hip Total Hip Anterior, ACTIS Right Maciej Garcia MD Meds Allergies and Home Medications Allergies Allergy/AdvReac Type Severity Reaction Status Date / Time clindamycin Allergy Intermediate Skin Rash Verified 11/06/24 06:23 Estrogens Allergy Intermediate Skin Rash Verified 11/06/24 06:23 Penicillins Allergy Intermediate Skin Rash Verified 11/06/24 06:23 omeprazole Allergy Unknown Other (See Verified 11/06/24 06:23 Comment) gabapentin Allergy Psychosis Verified 11/06/24 06:23 hydrocodone (From Vicodin) AdvReac Intermediate Other (See Verified 11/06/24 06:23 Comment) Home Medication ?Medication ?Instructions ?Recorded amlodipine 5 mg tablet (Norvasc) 10 mg PO HS 11/19/12 fluticasone propionate 50 9.9 ml NS 2 SPRAYS QD 02/04/15 mcg/actuation nasal spray,suspension (Flonase Allergy Relief) magnesium oxide 400 mg PO DAILY 12/23/20 famotidine 40 mg tablet 40 mg PO HS 06/02/21 Bacillus coagulans 800 million 800 cell PO DIRECTED 11/26/21 cell tablet (Digestive Advantage Probiotics-Prebiotic) multivitamin 1 tab PO DAILY 11/26/21 estradiol 0.01% (0.1 mg/gram) 1 appful vaginal DAILY 07/28/22 vaginal cream pantoprazole 20 mg tablet,delayed 20 mg PO DAILY 11/17/22 release ascorbate calcium (vitamin C) 500 500 mg PO DAILY 10/30/24 mg tablet cetirizine 10 mg capsule (All Day 10 mg PO DAILY PRN 11/02/24 Allergy (cetirizine)) fiber cap PO DAILY 11/06/24 Current Visit Medications: Current Medications Generic Name Dose Route Start Last Admin Trade Name Freq PRN Reason Stop Dose Admin Acetaminophen 1,000 mg 11/06/24 06:00 11/06/24 06:51 Acetaminophen 500 Mg Tab PO 11/06/24 23:59 1,000 mg PREOP DEYANIRA Administration Celecoxib 400 mg 11/06/24 06:00 11/06/24 06:51 Celecoxib 200 Mg Cap PO 11/06/24 23:59 400 mg PREOP DEYANIRA Administration Ringer's Solution 1,000 mls @ 80 mls/hr 11/06/24 06:00 11/06/24 07:05 IV 11/06/24 23:59 80 mls/hr INFUSION DEYANIRA Administration Cefazolin Sodium/Dextrose 2 gm in 50 mls @ 100 mls/hr 11/06/24 06:00 Ancef Duplex IVPB 11/06/24 23:59 PREOP DEYANIRA Tranexamic Acid/Sodium Chloride 1,000 mg in 100 mls @ 600 mls/hr 11/06/24 06:00 IVPB 11/06/24 23:59 PREOP DEYANIRA IV Miscellaneous Supplies 1 each 11/06/24 06:00 Iv Access IV 11/06/24 23:59 DIRECTED DEYANIRA Sodium Chloride 0 ml 11/06/24 06:00 Normal Saline Flush 10 Ml Syr IV 11/06/24 23:59 PRN PRN Sodium Chloride 0 ml 11/06/24 06:00 Normal Saline 10 Ml Vial IJ 11/06/24 23:59 DIRECTED PRN Sterile Water 0 ml 11/06/24 06:00 Water,Injection,Sterile 10 Ml Vial IJ 11/06/24 23:59 DIRECTED PRN PFSH Active Problems Active Problems: Problem Status Onset Code Degenerative joint disease of right hip Chronic M16.11 Tendinopathy of right gluteus medius Acute M67.951 Ischial bursitis of right side Acute M70.71 Dupuytren's contracture of right hand Acute M72.0 Dupuytren's contracture of left hand Acute M72.0 Right wrist sprain Acute S63.501A Rotator cuff strain Acute S46.019A Vulvodynia Acute N94.819 IBS (irritable bowel syndrome) Chronic K58.9 Bloody diarrhea Acute R19.7 Ischemic colitis Acute K55.9 Atrophic vaginitis Acute 12/31/13 N95.2 Carpal tunnel syndrome on both sides Acute 02/05/15 G56.03 Chronic rhinitis Acute 08/19/16 J31.0 Deviated nasal septum Acute 03/25/16 J34.2 Dyspareunia Acute 05/17/17 Hypertrophy of inferior nasal turbinate Acute 03/25/16 J34.3 Mass of face Acute 09/01/17 R22.0 Mass of left ear auricle Acute 07/21/17 H93.8X2 Nasal congestion Acute 03/25/16 R09.81 Vaginal atrophy Acute 01/01/15 N95.2 Vitiligo Acute 01/01/13 L80 Contusion of left foot, initial encounter Acute ~10/2019 S90.32XA Scapular dyskinesis Acute G25.89 Strain of cervical portion of left trapezius muscle Acute S16.1XXA Blood-tinged sputum Acute R04.2 Post-nasal drip Acute R09.82 Labral tear of hip joint Chronic S73.199A Trochanteric bursitis of right hip Acute M70.61 Iliotibial band syndrome of right side Acute M76.31 Epigastric pain Acute R10.13 Medical History Medical History Allergic rhinitis Dyspepsia Lower urinary tract symptoms Hyperlipidemia Headache Fatty liver disease, nonalcoholic Sleep apnea Venous insufficiency of right leg nothing recently - had a few episodes of right foot swelling Superficial dyspareunia Muscle cramps Hemorrhoids Irritable bowel syndrome with constipation Fatty liver Acid reflux Arthritis of knee, right Impingement syndrome of right shoulder Bursitis of right shoulder Arthritis of right acromioclavicular joint Tendonitis of long head of biceps brachii of right shoulder s/p biceps tenodesis 06/05/2021 - pain over surgical button site. Adhesive capsulitis of left shoulder Impingement syndrome of left shoulder Arthritis of left acromioclavicular joint Superior labrum [id number] (SLAP) tear of left shoulder Tendinitis of long head of biceps brachii of left shoulder History of excessive cerumen Seasonal allergic rhinitis Depression Anxiety Migraine Vitiligo GERD Surgical History Surgical History Status post arthroscopy of right shoulder (06/05/21) Status post open biceps tenodesis, extensive debridement, arthroscopic distal clavicle excision, subacromial decompression with partial acromioplasty Dr. Ricci History of surgical removal of ganglion cyst x2, R foot, L hand Status post arthroscopy of left shoulder (10/06/19) With biceps tenodesis Ligation of fallopian tube 1984 Sinus cyst removed 2006 R trochanteric bursectomy with IT band tenotomy 07/2012 Endometrial Ablation 2008 Colon/endoscopy 07/2013 repeated negative endoscopy Diverticulosis colon done at [facility] Tobacco Smoking/Tobacco Use Status: Never Alcohol Alcohol Intake: current Alcohol intake frequency: holidays/special occasions only Alcohol type: beer Substance Use Substance use: Never Substance use type: does not use Prental History History 2 Para 2 Hx # Term Pregnancies Multiple births Hx # Pregnancies Ectopic pregnancies AB induced Hx Number of Living Children AB spontaneous Vital Signs and Lab Results Vital Signs Most Recent Vital Signs in EMR: Most Recent Vital Signs Temp Pulse Resp BP Pulse Ox 36.5 C 95 H 14 149/94 H 98 11/06/24 06:41 11/06/24 06:41 11/06/24 06:41 11/06/24 06:41 11/06/24 06:41 Lab Results Blood Type / Crossmatch: No Data to Display Complete Blood Count: White Blood Count 5.06 10^3/uL (4.4-10.8) 10/29/24 09:30 Red Blood Count 4.40 10^6/uL (3.93-5.22) 10/29/24 09:30 Hemoglobin 12.9 g/dL (11.2-15.7) 10/29/24 09:30 Hematocrit 39.6 % (36.0-46.0) 10/29/24 09:30 Platelet Count 306 10^3/uL (130-400) 10/29/24 09:30 Complete Metabolic Panel: Sodium 146 mmol/L (136-145) H 10/29/24 09:30 Potassium 4.3 mmol/L (3.5-5.1) 10/29/24 09:30 Chloride 108 mmol/L (98-107) H 10/29/24 09:30 Carbon Dioxide 28.7 mmol/L (21.0-32.0) 10/29/24 09:30 BUN 16 mg/dL (7-18) 10/29/24 09:30 Creatinine 0.9 mg/dL (0.55-1.02) 10/29/24 09:30 Est GFR (CKD-EPI 2020) 70.51 (mL/min/1.73m2) 10/29/24 09:30 Magnesium 2.4 mg/dL (1.8-2.4) 10/29/24 09:30 Calcium 9.7 mg/dL (8.5-10.1) 10/29/24 09:30 Albumin 4.4 g/dL (3.4-5.0) 10/29/24 09:30 Glucose 103 mg/dL (74-106) 10/29/24 09:30 Liver Function Panel: Alanine Aminotransferase (ALT/SGPT) 37 U/L (14-59) 10/29/24 09: 30 Aspartate Amino Transf (AST/SGOT) 21 U/L (15-37) 10/29/24 09:30 Coagulation Panel: No Data to Display Cardiac Panel: No Data to Display Arterial Blood Gas: No Data to Display Venous Blood Gas: No Data to Display Pancreas Panel: No Data to Display Thyroid Panel: Thyroid Stimulating Hormone (TSH) 2.99 uIU/mL (0.36-3.74) 10/29 09:30 Infectious Disease: No Data to Display Blood Cultures: No Data to Display Toxicology Panel: No Data to Display Imaging and Studies Imaging and Studies Study information below may be from another EMR and interpreted by another provider. Please see original notes in EMR for more complete details. EKG Summary: Conclusion Sinus rhythm...normal P axis Probable left atrial enlargement 05/03/21 Pulmonary Function Summary: DATE OF SERVICE: January 04, 2017 REQUESTING PROVIDER: Moustapha Givens M.D. INTERPRETATION OF STUDY: Spirometry shows possible borderline mild obstructive airways disease; however, more likely, this represents a normal variant. There is no significant bronchodilator response. LUNG VOLUMES: Show no evidence of restriction. DIFFUSION CAPACITY: Normal. AIRWAYS RESISTANCE: Normal. IMPRESSION: Overall normal pulmonary function study. If the diagnosis of asthma is in question, proceeding with methacholine challenge testing may prove to be useful. Clinical correlation recommended. Anesthesia Assessment and Plan Anesthesia History Personal History: No History of Anesthesia Complications Family History: No Family History of Anesthesia Complications Exercise Tolerance Exercise Tolerance: Metabolic Equivalents>4 Pertinent Negatives Pertinent Negatives: No Major Cardiovascular Symptoms or Complaints and No Major Pulmonary Symptoms or Complaints Cardiac & Pulmonary Exam Cardiac Exam: Normal S1/S2 Heart Sounds Pulmonary Exam: Clear Bilateral Breath Sounds Implantable Cardiac Device Does patient have a Pacemaker or an ICD?: No Airway Exam Known Difficult Airway: No Mallampati Class: 2 Mouth Opening: Normal (> 3cm) Thyromental Distance: Less than 3 cm Neck Range of Motion: Full ROM Neck Circumference: Normal Teeth Condition: Normal Dentition ASA Classification ASA Score: ASA 2 Emergency Case?: No NPO Status NPO Status: NPO Clears >2 hours, Solids >8 hours Anesthesia Plan Resuscitation Status: Full Code Anesthesia Technique: General Anesthesia Airway Planned: Endotracheal Tube Monitors Used: Standard Monitors and SedLine Preoperative Comments:: Active GERD symptoms today, reports some GI upset. Plan GETA/RSI
--- NOTE | 2024-11-06 07:15 | W.PM.DSUDISC ---
Date of service: 11/06/24 Discharge Plan Disposition Patient Disposition: Home Condition: Good Discharge Details Reason For Visit: Right hip DJD Attending Provider: Maciej Garcia Primary Care Provider: Ilsa Thakur Home Meds and New Rx's Prescriptions: New celecoxib [Celebrex] 200 mg capsule 200 mg PO BID PRNQty: 60 0RF Rx Instructions: Take one tablet twice daily for pain and inflammation aspirin 81 mg tablet,delayed release (DR/EC) 81 mg PO BID 30 Days Qty: 60 0RF tramadol 50 mg tablet 50 mg PO Q4H PRN (Reason: severe postoperative pain) Qty: 12 0RF Rx Instructions: Take one tablet up to every 4 hours as needed for severe pain acetaminophen 500 mg tablet 1,000 mg PO Q8H PRN Qty: 90 0RF Rx Instructions: Take two tablets up to every 8 hours as needed for pain dexamethasone 4 mg tablet 4 mg PO DAILY Qty: 2 0RF Rx Instructions: Take one tablet once daily for two days docusate sodium [Colace] 100 mg capsule 100 mg PO BID Qty: 30 0RF Continued pantoprazole 20 mg tablet,delayed release (DR/EC) 20 mg PO DAILY Digestive Advantage Probio-Pre 800 million cell tablet 800 cell PO DIRECTED multivitamin Tablet 1 tab PO DAILY estradiol 0.01 % (0.1 mg/gram) cream 1 appful vaginal DAILY Rx Instructions: for 14 days ascorbate calcium (vitamin C) 500 mg tablet 500 mg PO DAILY fluticasone propionate [Flonase Allergy Relief] 9.9 ML spray,suspension 9.9 ml NS 2 SPRAYS QD amlodipine [Norvasc] 5 MG tablet 10 mg PO HS magnesium oxide 400 mg magnesium Tablet 400 mg PO DAILY famotidine 40 mg tablet 40 mg PO HS All Day Allergy (cetirizine) 10 mg capsule 10 mg PO DAILY PRN fiber Capsule PO DAILY Discharge Instructions Additional Instructions: Total Hip Discharge Instructions Activity: The most important activity is to walk. You should try to take short walks a few times a day. You have no restrictions on movement or positioning, but do not try to force what you do. You will find some stiffness and weakness with hip flexion (lifting your knee). Do not try to strengthen this too early, continue to practice walking and stairs and this will come. - Outpatient physical therapy can be helpful to help return you to a normal gait and improve your flexibility and strength. This can start around 2 weeks. For some patients, it?s not necessary. Usually this is determined at the time of discharge or at the first post-operative visit. - You should wear the SJ hose on both legs for 2 weeks. Dressing: Keep the surgical dressing in place for at least one week. After the first week it may be removed and replace with light gauze and tape or nothing. It may get wet after 3 days but avoid soaking the dressing. If it gets wet, just lightly pat dry. It is important to always keep some gauze between skin folds, especially when you are sitting. Spend some time with the wound exposed when you are lying flat as the incision does wrinkle onto itself. Medications: - You should take Tylenol and an anti-inflammatory Celebrex as your primary pain control medications. If the Celebrex is too expensive or not covered, please call the office for another alternative (Advil/Ibuprofen or Naproxen/Aleve). - You have been prescribed a stronger pain medication Tramadol for breakthrough pain, take as needed as prescribed. - You take a stomach acid reduction agent Pantoprozole at baseline - continue with this medication to help reduce stomach acid and reflux. - You have also been prescribed Decadron to help with post-operative nausea and pain. You will take this for two days starting tomorrow. - You will be taking Aspirin 81mg twice a day for DVT prevention unless instructed otherwise. - If you have constipation you should take Colace (which has been prescribed) or Miralax (which is available [id number]). It takes most people 3-4 days to have a bowel movement. Follow-up: 2 weeks If you have any acute concerns or questions, please do not hesitate to contact the office at [phone]. You may contact Dr. Garcia with any questions after hours through the hospital at [phone] or on his cell phone at [phone]. Referrals: Maciej Garcia MD [ [facility] STAFF PHYSICIAN] - Equipment/Supplies: Walker Activity:: Activity as Tolerated Remove Dressings/Wound Care:: Do Not Remove Shower/Bathe:: Cover Diet:: As Tolerated Discharge Orders Discharge Orders: Discharge Order (Routine); Ordered 11/06/24 Ordered By: Trish Ocampo
[2024-11-06] MEDS: Normal Saline Flush 10 ML SYR IV (07:30)
[2024-11-06] MEDS: ceFAZolin 2 GM/50 ML BAG IVPB (07:44)
[2024-11-06] MEDS: TRANEXAMIC ACID/SOD. CHL. 1,000 MG/100 ML BAG 600 MG IVPB (07:55)
--- NOTE | 2024-11-06 08:45 | DI.RAD_ITS ---
Exam(s) XR HIP RT IN OR EXAM: XR HIP RT IN OR CLINICAL HISTORY: Degenerative joint disease of right hip. TECHNIQUE: Fluoroscopy was provided for the referring physician for guidance with performing pain cl inic injection procedure. COMPARISON: CR XR HIP RT COMPLETE AP PELVIS from 07/03/2024 FINDINGS: A hard copy image shows placement of a right hip prosthesis. The alignment appears satisfactory. Pl ease see procedure note for details. Fluoro time: 26.7 seconds RADIATION DOSE DELIVERED: Kar=2.2 mGy
--- NOTE | 2024-11-06 09:03 | ROE_ITS ---
Operative Note Operative Note PRE-OP DIAGNOSIS: Right Hip Osteoarthritis POST-OP DIAGNOSIS: same PROCEDURE: Right Anterior Total Hip Arthroplasty with Intraoperative Navigation SURGEON: Maciej Garcia WAN SUPPORT SPECIALIST: Trish Ocampo ANESTHESIA TYPE: General LMA/ETT Refer to Anesthesia Record ESTIMATED BLOOD LOSS: 100 PATHOLOGY: none sent TOURNIQUET TIME: 0 COMPLICATIONS: None Patient was transported to: PACU Patient's condition: stable Implants: 1. Depuy Attapulgus Acetabular Component, 50mm 2. Depuy Acetabular Liner, [id number] 3. Depuy Actis Standard Collared Femoral Stem, Size 4 4. Depuy Altrx Ceramic Femoral Head, Size 32+5mm Indications: I have seen Estela in clinic for symptoms of hip arthritis, confirmed with radi ographic findings. She has exhausted nonoperative methods and was having significant limitations in daily function and desired better function and less pain. I discussed the technical details of a hip replacement. I explained the risks of the procedure to include, but not limited to, bleeding, infection, pain, stiffness, fracture, damage to nerves and vessels, damage to muscles and tendons, loosening, instability, leg length inequality, need for repeat procedure, blood clot and cardiopulmonary demise. Despite these risks, Estela elected to proceed. Findings: There was significant chondromalacia of the superior femoral head. Procedure Description: Estela was greeted in the preoperative holding area where the correct side was identified and marked. The consent was reviewed with the patient and signed. The history and physical was updated. All questions were answered. She was taken back to the operating room. A general anesthestic was then administered. The feet were wrapped with cast padding and Coban and then placed into the boot liners and then into the boots. Care was taken to protect the skin and make sure the heels were fully down and the boots were stable. The patient was then positioned onto the HANA table. Both legs were held in a neutral position. SCDs were applied. The patient was then slid down onto a peroneal post. Prophylactic antibiotics in the form of Cefazolin were administered. 1g of Tranxemic Acid was given intravenously within 30 minutes of incision. The right leg was then prepped with Chloraprep and draped in a standard fashion. A second prep with Chloraprep was performed prior to placement of a shower-curtain type drape with Iodine impregnated skin protection. A timeout to confirm correct identity, side and site, procedure, allergies, anesthesia, and medical concerns was performed. An obliquely oriented incision was made starting lateral to the ASIS and running distal over the Tensor Fascia Mónica (TFL) muscle belly toward the fibular head, approximately 10cm. The skin and soft tissue was dissected sharply, through Gamal?s fascia, and to the fascia of the TFL. With the fascia and superior border of the IT band identified, the fascia was incised with a new knife just above any perforators from the IT band. The TFL muscle belly was bluntly dissected away from the fascia and moved laterally. The fat between TFL and rectus was identified to ensure the dissection was not within the TFL. Blunt dissection created space between abductors and the capsule and retractor was placed over the lateral femoral neck. The fibers of the rectus femoris tendon were identified and these were freed from the anterior capsule. A second cobra retractor was placed around the medial femoral neck. The TFL was further retracted laterally to show the deep fascia. Careful dissection through this layer identified three main crossing vessels of the lateral femoral circumflex. These were cauterized in multiple locations and then cut without any noticeable bleeding. The TFL was further released bluntly from the deep fascia to expose a nterior hip capsule and fat The soft tissue orthopaedic retractor was then placed beneath the TFL and against sartorius and medial soft tissues to protect and retract the soft tissues. A T-capsulotomy was then performed starting at the superior lateral acetabulum and moving distally to the intertrochanteric ridge. These capsular flaps were tagged with a No. 1 Vicryl and elevated from within. The capsular flaps were released to the shoulder of the lateral neck and to the lesser trochanter to give excellent visualization of the proximal femur. A neck osteotomy was performed using an oscillating saw based on preoperative templates. This cut started in the shoulder and of the lateral neck and exited medially. The saw was at all times directed medially to avoid injury to the greater trochanter. Gross traction was applied to the leg and the osteotomy opened. The femoral head was removed with a corkscrew, making sure to protect the TFL on its exit. Traction was released after head removal. This was measured on the back table to determine the starting reamer size. Portions of the rectus obscuring visualization were minimally elevated off the superior acetabulum. An anterior retractor was placed over the anterior wall between capsule and labrum and attached to the Gripper retraction system. The femur was rotated to 90 degrees and medial capsule was fully released until the lesser trochanter was palpable and visible; the femur was returned to 30 degrees. A posterior retractor was placed similarly between capsule and labrum. This provided excellent visualization. The contents of the cotyloid fossa were removed with electrocautery and the labrum was removed with a knife. Acetabular reaming began with a 44mm reamer. This first reaming was directed anterior to posterior and medial to get down to the true floor. This was inspected and reamed until the true floor was reached. The anterior retractor was then released and entry and exit was provided by traction on the capsular flaps. I then reamed sequentially up to a 50mm reamer where good fit was obtained. The larger reamers were oriented based on anatomical reference of the anterior and lateral nicholas to ensure proper abduction and anteversion. Positioning and size was confirmed with the fluoroscopy. A 50mm Depuy Attapulgus acetabular component was selected. The acetabulum was reamed around the p eriphery with the selected acetabular size to prevent a rim fit. The deep tissues were irrigated. The acetabular component was then impacted in a position of about 40-45 degrees of abduction and 15-20 degrees of anteversion, using the patient?s anatomy as the ultimate landmark. Fluoroscopy was used to confirm this. There was excellent suction dredge dumping supervisor of the acetabular component and the inserting handle was removed. The acetabular liner, Depuy [id number] polyethylene liner, was inserted and lined up with the tines of the acetabular component. There was no soft tissue interposition. The liner was then impacted into position and confirmed to be well-seated. A portion of the raudel-articular cocktail was then injected around the acetabulum into the capsule and periosteum. This cocktail consisted of 123mg of Ropivacaine, 0.25mg of Epinephrine, 0.04mg of Clonidine, and 15mg of Ketorolac, diluted to 50cc. The leg was rotated to 120 degrees. Any remaining medial capsule was released until the lesser trochanter was easily palpable. A retractor was placed medially. The lateral capsule was further released into the shoulder to allow access to the greater trochanter. A Coyle retractor was placed over the greater trochanter which allowed the trochanter to flip in front of the capsule for excellent exposure. The leg was brought down into maximal extension and 20 degrees of adduction while ensuring there was no impingement on the acetabulum. Any remnant capsule within the trochanter was released. Piriformis and obturator externis were identified and protected. There was excellent access to the proximal femur. The lateral neck remnant was removed with a rongeur. A blunt canal probe was used to identify the canal and trajectory for later broaching. A box osteotome initiated the broach course. A small curved rasp and a curved curette were used to work laterally. Broaching then began with a starter Actis broach. This was inserted manually around the trochanter and into the canal before mallet blows. The broach was seated to a few millimeters below the cut level based on the neck cut and the preoperative template. Sequential broaching was continued with the [employer] pneumatic broaching device until a tight fit was obtained with good rotational control of the femur. A trial standard neck was inserted along with a +5 trial head. The leg was brought out of extension and adduction and then reduced with traction and internal rotation. The leg was stable anteriorly in a position of 30 degrees of extension and 90 degrees of external rotation. Fluoroscopy was used to ensure there was no fracture and the stem was seated well. Leg lengths were checked with an AP pelvis and pelvic reference points. [employer] navigation system was used to confirm appropriate positioning and leg length and offset. Once content with the desired offset and leg lengths, the leg was brought back into extension, external rotation and adduction. The periosteum and surrounding tissue was injected with remaining portion of the raudel-articular cocktail. The proximal femur was irrigated as well as the deep tissues. The Depuy Actis standard collared stem, size 4, was then manually inserted into the proximal femur making sure to control rotation. It was then malleted into position with light blows, giving breaks to allow bone expansion and decrease risk of fracture. The selected Depuy Altrx Ceramic Head, size 32+5mm, was then placed onto the clean and dry trunnion and secured with impaction onto the tapered fit. The leg was brought back out of extension and adduction and reduced with traction and internal rotation. Stability was confirmed with no shuck at 90 degrees of external rotation and 30 degrees of extension. No impingement through range of motion arc. Final x-ray images were obtained with fluoroscopy to confirm adequate positioning and no intraoperative fracture. The deep tissues were thoroughly irrigated with Surgiphor, betadine solution. This was allowed to sit in the wound for 3 minutes before being thoroughly irrigated out with normal saline. The capsule was then reapproximated with the previously placed sutures and the indirect head of the rectus was inspected and reapproximated with a #1 Vicryl. The TFL fascia was finally closed with a No. 2 Stratafix, barbed suture. Deep tissues were then reapproximated with 0 Vicryl and a running 2-0 Vicryl. The skin was closed with a running 4-0 Monocryl in a subcuticular fashion. This was reinforced with skin glue. A Mepilex silver dressing was applied. At the end of the case, all counts were correct. Estela was transferred to the hospital bed without difficulty and suffering no apparent complication. Estela has a good prognosis. Physical therapy will start today and without restrictions, weight-bearing as tolerated. Aspirin 81mg BID will be used for DVT prophylaxis. Date of Procedure: 11/06/24
[2024-11-06] MEDS: fentaNYL 100 MCG/2 ML VIAL IVP ×3 (09:36→10:00)
[2024-11-06] MEDS: HYDROmorphone 2 MG/ML SYR IVP (10:05)
[2024-11-06] MEDS: Normal Saline 10 ML VIAL IJ (10:05)
[2024-11-06] MEDS: traMADol 50 MG TAB PO (10:52)
[2024-11-06] MEDS: Scopolamine 1 MG/3 DAYS PATCH TD (13:03)
[2024-11-06] MEDS: Simethicone 80 MG CHEW 40 MG PO (13:16)
--- NOTE | 2024-11-06 14:29 | W.ANESPOSTOP ---
Postoperative Evaluation Date, Time and Location Date Performed: 11/06/24 Time Performed: 14:29 Patient Location: Day Surgery Unit Vital Signs Most Recent Imported Vital Signs: Most Recent Vital Signs Temp Pulse Resp BP Pulse Ox 36.5 C 68 16 102/58 L 98 11/06/24 11:25 11/06/24 11:25 11/06/24 11:25 11/06/24 11:11/06/24 11:25 Pain Score Most Recent Pain Score: Most Recent Pain Score Pain Level 3 11/06/24 12:50 Assessment Mental Status: Awake (Alert & Oriented to Patient Baseline) Airway and Respiratory Function: Patent airway with normal (patient baseline) respiratory exam Cardiovascular Function: Hemodynamically Stable Hydration Status: Adequately Hydrated Nausea & Vomiting: No Nausea or Vomiting Pain: Pain is tolerable per patient Peripheral Nerve Block: Patient did not receive a nerve block
--- NOTE | 2024-11-06 18:06 | IN_ITS ---
PT Notes Visit Reasons: Right hip DJD Physical Therapy Day Surgery Initial Evaluation Date: 11/06/2024 Referring Doctor: Trish Ocampo PT Orders: PT CONSULT: Status post Ortho consult Precautions: Weightbearing as tolerated right lower extremity Patient Profile/Admitting Diagnosis: Patient is 64-year-old female presenting status post right FILEMON by Dr. Garcia postop uncomplicated PMHX: Allergic rhinitis Dyspepsia Lower urinary tract symptoms Hyperlipidemia Headache Fatty liver disease, nonalcoholic Sleep apnea Venous insufficiency of right leg nothing recently - had a few episodes of right foot swellingSuperficial dyspareunia Muscle cramps Hemorrhoids Irritable bowel syndrome with constipation Fatty liver Acid reflux Arthritis of knee, right Impingement syndrome of right shoulder Bursitis of right shoulder Arthritis of right acromioclavicular joint Tendonitis of long head of biceps brachii of right shoulder s/p biceps tenodesis 06/05/2021 - pain over surgical button site.Adhesive capsulitis of left shoulder Impingement syndrome of left shoulder Arthritis of left acromioclavicular joint Superior labrum [id number] (SLAP) tear of left shoulder Tendinitis of long head of biceps brachii of left shoulder History of excessive cerumen Seasonal allergic rhinitis Depression Anxiety Migraine Vitiligo GERD Surgical History Status post arthroscopy of right shoulder (06/05/21) Status post open biceps tenodesis, extensive debridement, arthroscopic distal clavicle excision, subacromial decompression with partial acromioplasty Dr. Wallace of surgical removal of ganglion cyst x2, R foot, L handStatus post arthroscopy of left shoulder (10/06/19) With biceps tenodesisLigation of fallopian tube 1984Sinus cyst removed 2007R trochanteric bursectomy with IT band tenotomy 07/2012Endometrial Ablation 2009Colon/endoscopy 07/2013 repeated negative endoscopy Diverticulosis colon done at [facility] Social History/Home Situation: Patient resides with in single-family home 2 steps to enter with bilateral rails. Equipment Owned/DME: FWW, tray for walker, raised toilet seat Subjective: Patient reports being tired but motivated to return home Objective: [] General Observation: Female semireclined stretcher ice to right hip Mental Status: Alert and oriented x 4, cooperative, able to follow commands Pain: Right hip 2?11/12 ROM: [] Right Upper Extremity: WNL Left Upper Extremity: WNL Right Lower Extremity: Knee and ankle within normal limits, hip flexion 95 degrees ,abduction 12 degrees Left Lower Extremity: WNL Strength: [] Right Upper Extremity: 5/5 Left Upper Extremity: 5/5 Right Lower Extremity: Hip flexion: 3 -/5; hip abduction: 3 -/5; hip extension: 3 -/5; knee extension: 3/5; knee flexion: 3 -/5 ankle DF: 3 ; ankle PF: 11/07 Left Lower Extremity: 01/07 Sensation: Intact Bed Mobility/Transfers: [] Supine to sit supervision Sit to stand supervision Stand to sit supervision Bed to chair supervision FWW Gait: Ambulates with FWW standby assist 150 feet initially step to pattern progressed to reciprocal pattern Stairs: 2 steps bilateral rails step to pattern SBA Balance: [] Static Sitting: Normal Dynamic Sitting: Good Static Standing: Good Dynamic Standing: Fair plus Special Tests: [] Mobility Limitations Standardized Measure [] [facility] 6 clicks Basic Mobility Inpatient Short Form: [] Raw Score: 22 CMS Score: 20.91% Informed Consent/Education: Patient instructed in purpose of PT consult. Packet containing FILEMON exercise protocol has been given to patient. Education and training on initial set of exercises that can be done at home have been completed with patient. Assessment: Patient is a 64-year-old female presents with clinical signs and symptoms consistent with current/admitting diagnoses that have resulted to mobility limitations, gait instability, generalized weakness, and impairment of motor control as demonstrated by the following impairment level findings: 1. Decreased strength to right hip major muscle groups 2. Impaired standing balance 3. Limitation of joint range of motion in right hip 4. Impaired standing functional activity tolerance Impairments are contributing to the following functional limitations: 1. Inability to safely ambulate without assistive device 2. Increase completion time for mobility ADL performance 3. Increased fall risk 4. Difficulty performing stairs safely alone Patient is assessed as a moderate complexity based on the following: History: 64 -year-old female with impairment level findings, functional limitations, and past medical history as indicated above Examination: Demonstrable impairment in strength, balance, and mobility level with underlying impairments and functional limitations as documented above Presentation: Evolving Decision Making: Moderate Goals: N/A. Plan of Care/Treatment Plan: N/A. DISCHARGE RECOMMENDATIONS: Home with home exercise program patient may benefit from outpatient PT TREATMENT CODE/TIME: 47587/13 [id number] Thank you for the opportunity to participate in the care of this patient. Kasey Laird, PT [facility]
== END 2024-11-06 14:30 | disposition home or self-care (01) ==
PROVIDERS: PCP Nurse Practitioner Family; Visit Provider Student in an Organized Health Care Education/Training Program
PROC: (CPT 27130; principal; 2024-11-06 07:30)
DX: M16.11 Unilateral primary osteoarthritis, right hip (principal); E78.5 Hyperlipidemia, unspecified; I87.2 Venous insufficiency (chronic) (peripheral); K76.0 Fatty (change of) liver, not elsewhere classified; Z79.899 Other long term (current) drug therapy
CPT/HCPCS: 20985; 27130; 97162; 73501; C1776; J0690; J1100; J1171; J1790; J1805; J2003; J2250; J2371; J2405; J2704; J3010

== ENCOUNTER 2024-11-19 08:55 | Outpatient (CLI) | payer MEDICARE, OTHER, SELFPAY ==
--- NOTE | 2024-11-19 08:42 | DI.RAD_ITS ---
Exam(s) XR HIP RT COMPLETE AP PELVIS EXAM: XR HIP RT COMPLETE AP PELVIS INDICATION: 1ST POST OP S/P R FILEMON. COMPARISON: CR XR HIP RT COMPLETE AP PELVIS from 07/03/2024 XA XR HIP RT IN OR from 11/06/2024 TECHNIQUE: 2D digital imaging was performed. Two views. FINDINGS: Stable alignment of right hip prosthesis. No abnormal surrounding bony lucencies. The left hip join t space is maintained. DATA REPOSITORY: RADIATION DOSE DELIVERED:
== END 2024-11-19 08:56 | disposition home or self-care (01) ==
LOC: DIORS 08:55
PROVIDERS: PCP Nurse Practitioner Family; Referring Provider Nurse Practitioner Family; Visit Provider Student in an Organized Health Care Education/Training Program
DX: Z96.641 Presence of right artificial hip joint (principal); Z47.1 Aftercare following joint replacement surgery
CPT/HCPCS: 99024; 73502

== ENCOUNTER → 2024-12-17 10:39 | Outpatient (BNVA) | payer MEDICARE, OTHER, SELFPAY | PROVIDERS: PCP Nurse Practitioner Family; Referring Provider Nurse Practitioner Family; Visit Provider Student in an Organized Health Care Education/Training Program | DX: Z47.1 Aftercare following joint replacement surgery (principal); Z96.641 Presence of right artificial hip joint | CPT/HCPCS: 99024 ==

== ENCOUNTER → 2025-01-31 13:44 | Outpatient (BNVA) | payer MEDICARE, OTHER, SELFPAY | PROVIDERS: PCP Nurse Practitioner Family; Referring Provider Nurse Practitioner Family; Visit Provider Physician Assistant | DX: Z96.641 Presence of right artificial hip joint (principal); M70.61 Trochanteric bursitis, right hip; M67.951 Unspecified disorder of synovium and tendon, right thigh | CPT/HCPCS: 20610; J1010 ==

== ENCOUNTER 2025-03-27 15:28 | Outpatient (REF) | payer MEDICARE, OTHER, SELFPAY ==
[2025-03-27 15:29] LABS: Anion Gap 8.3 mmol/L (3-11); BUN 16 mg/dL (7-18); CO2 29.7 mmol/L (21.0-32.0); Calcium 9.6 mg/dL (8.5-10.1); Chloride 105 mmol/L (98-107); Estimated GFR 95.32 (mL/min/1.73m2); Glucose 99 mg/dL (74-106); Potassium 3.8 mmol/L (3.5-5.1); Sodium 143 mmol/L (136-145)
[2025-03-27 15:35] LABS: Calculated LDL 194 mg/dL (<100); Cholesterol 284 mg/dL (<200); HDL Cholesterol 61 mg/dL (>or=50); Triglyceride 147 mg/dL (<150)
== END 2025-03-27 15:29 | disposition home or self-care (01) ==
LOC: NCHCN 15:28
PROVIDERS: Student in an Organized Health Care Education/Training Program; PCP Nurse Practitioner Family; Visit Provider Nurse Practitioner Family
DX: Z01.818 Encounter for other preprocedural examination (principal); E78.5 Hyperlipidemia, unspecified
CPT/HCPCS: 80048; 80061

== ENCOUNTER 2025-04-12 13:20 | Emergency (ER) | payer MEDICARE, OTHER, SELFPAY ==
--- NOTE | 2025-04-12 13:23 | W.ED.GENAD ---
Discharge Plan Disposition Patient Disposition: Home Discharge Details Clinical Impression: Acute pain of left wrist Primary Care Provider: Ilsa Thakur ED Provider: Terrell Hong Home Meds and New Rx's Prescriptions: Continued pantoprazole 20 mg tablet,delayed release (DR/EC) 20 mg PO DAILY Digestive Advantage Probio-Pre 800 million cell tablet 800 cell PO DIRECTED multivitamin Tablet 1 tab PO DAILY estradiol 0.01 % (0.1 mg/gram) cream 1 appful vaginal DAILY Rx Instructions: for 14 days ascorbate calcium (vitamin C) 500 mg tablet 500 mg PO DAILY fluticasone propionate [Flonase Allergy Relief] 9.9 ML spray,suspension 9.9 ml NS 2 SPRAYS QD amlodipine [Norvasc] 5 MG tablet 10 mg PO HS magnesium oxide 400 mg magnesium Tablet 400 mg PO DAILY famotidine 40 mg tablet 40 mg PO HS All Day Allergy (cetirizine) 10 mg capsule 10 mg PO DAILY PRN fiber Capsule 2 cap PO DAILY acetaminophen 500 mg tablet 1,000 mg PO Q8H PRN Qty: 90 0RF Rx Instructions: Take two tablets up to every 8 hours as needed for pain Discharge Instructions Additional Instructions: You were seen in the emergency department for your wrist pain. Your x-ray showed no sign of any fractures. As we discussed you most likely have a bruise. Please wear this wrist brace as needed over the next 4 to 5 days. You may bear weight on your left upper extremity. As we discussed if your pain does not improve steadily please return to the emergency department or follow-up with your primary care provider there is a chance that you may benefit from additional imaging starting with a repeat x-ray. Please also return if you develop fevers streaking signs of infection or any redness on your wrist. For your pain please take medications as follows: 1. Take acetaminophen (Tylenol), 650 every 6 hours [2. Take ibuprofen (Advil), 400 mg every 6 hours.] HPI General Date/Time Provider Initiated Documentation: 04/12/25 13:23. HPI Narrative: [facility] This is an overall very well appearing normothermic and not tachycardic [id number] 58-year-old female with left radial styloid tenderness concerning for contusion versus fracture for which patient will undergo plain films. No pain or proportion to suggest necrotizing soft tissue infection. No erythema to suggest cellulitis. No fluctuance to suggest abscess. No significant swelling to suggest septic joint. Based on the history of trauma my suspicion for gouty arthritis was low. No vesicles to suggest zoster. No history of malignancy to suggest increased risk for pathological fracture. If x-rays are unremarkable we will plan on removable Velcro wrist brace and weightbearing as tolerated. 3:36 PM Plain films negative for any acute osseous abnormalities. Patient and I discussed that she should wear this removable wrist brace as needed for comfort. We discussed that if she had worsening pain for the next 4 to 5 days that she should return to the ED or follow-up with her PCP. She may or may not benefit from additional imaging following reassessment. She understood her return indications and was discharged with an empiric trial of expectant outpatient management. HPI This is a patient presenting with left wrist pain. The patient experienced an incident on 04/08/2025 where a remote control window shade became unbalanced. While attempting to adjust it, the shade snapped and fell, striking her arm and causing it to bend backwards. Initially, she felt pain in her wrist, which has since spread to her thumb. She is right-handed and reports that the pain extends from her wrist to her finger. She is unable to remove one of her rings due to the swelling. Despite the pain, she is able to move her hand. She is not currently on any blood thinners. She recalls that the day after the incident, on 04/09/2025, while leaning over a tub and placing her hand on the wall, she experienced significant pain in her wrist. However, once she stopped the activity, the pain subsided. She reports no other injuries or head trauma. Exam General: Well-appearing in no acute distress speaking in complete sentences. Head: Normocephalic, atraumatic. Eye: Extraocular eye movements intact. No conjunctival injection. No scleral icterus. Ear, nose, mouth, throat: Grossly normal inspection. Normal voice, handling secretions normally. Neck: Trachea midline. Cardiovascular: Well-perfused distal extremities. Respiratory: Nonlabored respiration. Gastrointestinal: Nondistended abdomen. Musculoskeletal: Left wrist with mild tenderness over the radial styloid. No tenderness left elbow. Full range of motion left elbow. Patient is able to fully pronate and supinate. Patient has intact sensation motor function in the left hand across the radial, median, and ulnar nerve distributions. 2+ left radial pulse. Skin: Normal for age and race, grossly normal temperature and turgor. No acute rash. Neurologic: Alert and appropriate, no apparent acute deficits. Psychiatric: Mood and manner are appropriate. Grooming and personal hygiene are appropriate. Related Data Home Medications ?Medication ?Instructions ?Recorded ?Confirmed amlodipine 5 mg tablet (Norvasc) 10 mg PO HS 11/19/12 04/12/25 fluticasone propionate 50 9.9 ml NS 2 SPRAYS QD 02/04/15 04/12/25 mcg/actuation nasal spray,suspension (Flonase Allergy Relief) magnesium oxide 400 mg PO DAILY 12/23/20 04/12/25 famotidine 40 mg tablet 40 mg PO HS 06/02/21 04/12/25 Bacillus coagulans 800 million 800 cell PO DIRECTED 11/26/21 04/12/25 cell tablet (Digestive Advantage Probiotics-Prebiotic) multivitamin 1 tab PO DAILY 11/26/21 04/12/25 estradiol 0.01% (0.1 mg/gram) 1 appful vaginal DAILY 07/28/22 04/12/25 vaginal cream pantoprazole 20 mg tablet,delayed 20 mg PO DAILY 11/17/22 04/12/25 release ascorbate calcium (vitamin C) 500 500 mg PO DAILY 10/30/24 04/12/25 mg tablet cetirizine 10 mg capsule (All Day 10 mg PO DAILY PRN 11/02/24 04/12/25 Allergy (cetirizine)) acetaminophen 500 mg tablet 1,000 mg (2 x 500 mg) PO Q8H PRN 11/06/24 04/12/25 pain #90 tabs fiber 2 cap PO DAILY 11/06/24 04/12/25 Previous Rx's ?Medication ?Instructions ?Recorded acetaminophen 500 mg tablet 1,000 mg (2 x 500 mg) PO Q8H PRN 11/06/24 pain #90 tabs Allergies Allergy/AdvReac Type Severity Reaction Status Date / Time clindamycin Allergy Intermediate Skin Rash Verified 04/12/25 13:27 Estrogens Allergy Intermediate Skin Rash Verified 04/12/25 13:27 Penicillins Allergy Intermediate Skin Rash Verified 04/12/25 13:27 omeprazole Allergy Unknown Other (See Verified 04/12/25 13:27 Comment) gabapentin Allergy Psychosis Verified 04/12/25 13:27 hydrocodone (From Vicodin) AdvReac Intermediate Other (See Verified 04/12/25 13:27 Comment) General DREW: 4 PFSH All Active Problems (Updated 04/12/25 @ 14:36 by Terrell Hong MD) Acute pain of left wrist (Acute) Tendinopathy of right gluteus medius (Acute) Ischial bursitis of right side (Acute) Dupuytren's contracture of right hand (Acute) Dupuytren's contracture of left hand (Acute) Right wrist sprain (Acute) Rotator cuff strain (Acute) Vulvodynia (Acute) IBS (irritable bowel syndrome) (Chronic) Bloody diarrhea (Acute) Ischemic colitis (Acute) Atrophic vaginitis (Acute 12/31/13) Carpal tunnel syndrome on both sides (Acute 02/05/15) Chronic rhinitis (Acute 08/19/16) Deviated nasal septum (Acute 03/25/16) Dyspareunia (Acute 05/17/17) Hypertrophy of inferior nasal turbinate (Acute 03/25/16) Mass of face (Acute 09/01/17) Mass of left ear auricle (Acute 07/21/17) Nasal congestion (Acute 03/25/16) Vaginal atrophy (Acute 01/01/15) Vitiligo (Acute 01/01/13) Contusion of left foot, initial encounter (Acute ~10/2019) Scapular dyskinesis (Acute) Strain of cervical portion of left trapezius muscle (Acute) Blood-tinged sputum (Acute) Post-nasal drip (Acute) Labral tear of hip joint (Chronic) most recent Depo-medrol injection: 07/27/24 Trochanteric bursitis of right hip (Acute) Depo: 01/31/2025; 11/17/22 Iliotibial band syndrome of right side (Acute) Epigastric pain (Acute) Medical History (Updated 04/12/25 @ 14:36 by Terrell Hong MD) Allergic rhinitis Dyspepsia Lower urinary tract symptoms Hyperlipidemia Headache Fatty liver disease, nonalcoholic Sleep apnea Venous insufficiency of right leg nothing recently - had a few episodes of right foot swelling Superficial dyspareunia Muscle cramps Hemorrhoids Irritable bowel syndrome with constipation Fatty liver Acid reflux Arthritis of knee, right Impingement syndrome of right shoulder Bursitis of right shoulder Arthritis of right acromioclavicular joint Tendonitis of long head of biceps brachii of right shoulder s/p biceps tenodesis 06/05/2021 - pain over surgical button site. Adhesive capsulitis of left shoulder Impingement syndrome of left shoulder Arthritis of left acromioclavicular joint Superior labrum [id number] (SLAP) tear of left shoulder Tendinitis of long head of biceps brachii of left shoulder History of excessive cerumen Seasonal allergic rhinitis Depression Anxiety Migraine Vitiligo GERD Surgical History (Updated 01/31/25 @ 14:13 by CHAPO Damon) History of total right hip replacement (11/06/24) Status post arthroscopy of right shoulder (06/05/21) Status post open biceps tenodesis, extensive debridement, arthroscopic distal clavicle excision, subacromial decompression with partial acromioplasty Dr. Ricci History of surgical removal of ganglion cyst x2, R foot, L hand Status post arthroscopy of left shoulder (10/06/19) With biceps tenodesis Ligation of fallopian tube 1984 Sinus cyst removed 2006 R trochanteric bursectomy with IT band tenotomy 07/2012 Endometrial Ablation 2008 Colon/endoscopy 07/2013 repeated negative endoscopy Diverticulosis colon done at [facility] Family History Other Heart disease Hyperlipidemia Personal history of malignant neoplasm Social History Smoking/Tobacco Use Status: Never Smoking risk assessment performed?: Yes Alcohol Intake: current Alcohol Intake frequency: holidays/special occasions only Alcohol type: beer Drug use: Never Substance use type: does not use Household members: spouse and other Details: H- Chirag. Housing: apartment Number of Children: 2 current occupation: self employed - cleaning business. Current gender identity: female Additional Social history: UT[employer] History History 2 Para 2 Hx # Term Pregnancies Multiple births Hx # Pregnancies Ectopic pregnancies AB induced Hx Number of Living Children AB spontaneous
[2025-04-12 13:25] VITALS: BP 156/81; PULSE 83; RESP 18; TEMP 36.8; O2SAT 95
--- NOTE | 2025-04-12 14:21 | DI.RAD_ITS ---
Exam(s) XR WRIST LT COMPLETE EXAM: XR WRIST LT COMPLETE CLINICAL HISTORY: Left wrist pain. TECHNIQUE: 2D digital imaging was performed of the left wrist. Three images were obtained. PA, oblique and lateral views were obtained. COMPARISON: CR,XR XR WRIST RT COMPLETE from 01/26/2022 FINDINGS: BONES: No acute fracture is present. No bony destructive lesion is seen. JOINTS: The carpal bones are normally aligned. The joint spaces are well maintained. SOFT TISSUE: Normal. IMPRESSION: There is no acute fracture or dislocation. DATA REPOSITORY: RADIATION DOSE DELIVERED:
== END 2025-04-12 14:49 | disposition home or self-care (01) ==
PROVIDERS: Emergency Provider Emergency Medicine; PCP Nurse Practitioner Family
DX: M25.532 Pain in left wrist (principal)
CPT/HCPCS: 99283 ×2; 73110

== ENCOUNTER → 2025-07-08 02:11 | Outpatient (CLI) | payer MEDICARE, OTHER, SELFPAY ==
--- NOTE | 2025-07-08 | DI.MAMMO_ITS ---
Exam(s) MAMMO SCREENING EXAM: MAMMO SCREENING CLINICAL HISTORY: SCREENING, Z12.31 TECHNIQUE: Bilateral full field digital CC and MLO mammographic images were obtained with 3D tomosynthesis and utilizing computer aided detection (CAD). COMPARISON: Comparison is made with prior examinations. FINDINGS: Masses/Architectural Distortion: No suspicious masses or areas of architectural distortion are present. Microcalcifications: No suspicious pleomorphic-type are seen. Skin Thickening/Nipple Retraction: None. IMPRESSION: 1. No significant interval change with no specific features of malignancy noted. 2. Unless there is more urgent need, screening mammography is recommended, as per [place] [employer] guidelines. BI-RADS Category 1 - Negative Breast Density - Category B - There are scattered areas of fibroglandular density. Breast density Category C or D implies that the patient has dense breast tissue. Dense breast tissue can make it harder to find cancer on a mammogram. Dense breast tissue is also associated with an increased risk of breast cancer. This information about the result of the mammogram report was provided to the patient to raise their awareness. Use this report when you speak with the patient about their risks for breast cancer, which includes their family history. At that time, you may recommend additional screening tests (Ultrasound or MRI) as these tests may add significant information. A negative radiographic report should not delay biopsy if a dominant or clinically suspicious mass is present. Up to ten percent of cancers are not identified on mammography. A negative report may reinforce clinical impression. Adenosis and dense breasts may obscure an underlying neoplasm. False positive reports average 6 to 10%. Patient will receive a letter notifying them of these results.
== END ==
LOC: DI 02:11
PROVIDERS: PCP Nurse Practitioner Family; Visit Provider Nurse Practitioner Family
DX: Z12.31 Encounter for screening mammogram for malignant neoplasm of breast (principal)
CPT/HCPCS: 77063; 77067

== ENCOUNTER 2025-07-17 10:24 | Outpatient (CLI) | payer MEDICARE, OTHER, SELFPAY ==
--- NOTE | 2025-07-17 09:30 | DI.RAD_ITS ---
Exam(s) XR HIP RT AP LAT ONLY EXAM: XR HIP RT AP LAT ONLY INDICATION: hip pain. COMPARISON: CR XR HIP RT COMPLETE AP PELVIS from 11/19/2024 TECHNIQUE: 2D digital imaging was performed. Two views. FINDINGS: Stable alignment of right hip prosthesis. No abnormal surrounding bony lucencies. DATA REPOSITORY: RADIATION DOSE DELIVERED:
== END 2025-07-17 10:25 | disposition home or self-care (01) ==
LOC: DIORS 10:24
PROVIDERS: PCP Nurse Practitioner Family; Referring Provider Nurse Practitioner Family; Visit Provider Student in an Organized Health Care Education/Training Program
DX: M70.61 Trochanteric bursitis, right hip (principal); M76.31 Iliotibial band syndrome, right leg; M67.951 Unspecified disorder of synovium and tendon, right thigh; Z96.641 Presence of right artificial hip joint
CPT/HCPCS: 99214; 73502